=== PATIENT | female | born 1945 | race Caucasian/White ===

== ENCOUNTER 2018-07-02 14:09 | Observation (INO) | payer MEDICARE, OTHER, SELFPAY ==
[2018-06-24 12:38] VITALS: BMI 43.4
[2018-07-01] VITALS (16 sets, daily range): BP systolic 118–172; BP diastolic 54–89; PULSE 65–91; RESP 13–28; TEMP 36–36.8; O2SAT 91–98; BMI 43.4
--- NOTE | 2018-07-01 06:00 | DI.RAD.S_ITS ---
PROCEDURE: XR KNEE RT 1TO2V INDICATIONS: post op right TKA TECHNIQUE: 2 view(s) of the knee acquired. COMPARISON: None. FINDINGS: Bones: Patient is status post knee joint arthroplasty. Hardware components are in expected positions. Visualized bony structures are intact. Soft tissues: Overlying postoperative changes are noted. IMPRESSION: Expected postoperative appearance. Dictated by: Marco Antonio Sutton M.D. on 07/01/2018 at 10:31 Approved by: Marco Antonio Sutton M.D. on 07/01/2018 at 10:32
[2018-07-01] MEDS: LACTATED RINGERS 1,000 ML 42 ML IV ×2 (07:33→09:39)
[2018-07-01] MEDS: MELOXICAM 7.5 MG TABLET 15 MG PO (07:33)
--- NOTE | 2018-07-01 07:41 | PM.PREOP ---
Pre-operative Note Interval Note History & Physical reviewed/Exam performed by Physician: Yes Changes to H&P: No
--- NOTE | 2018-07-01 07:46 | PM.OP.1 ---
Operative Date/Time/Diagnoses Date of procedure: 07/01/18 Time of procedure: 09:40 Pre-op diagnosis: Right knee osteoarthritis Post-op diagnosis: same Procedure & Clinicians Procedure: Right total knee replacement Same procedure as scheduled: Yes Indications: The patient has had progressively worsening right knee pain with radiographic changes consistent with arthritis. Non-operative management has failed and the patient has requested total knee replacement. The risks, benefits and alternatives to surgery were discussed with the patient prior to proceeding. Risks discussed included, but were not limited to, failure to relieve pain, stiffness, infection, nerve damage, deep venous thrombosis, pulmonary embolism, stroke, coma, heart attack, permanent paralysis and , as well as the potential need for eventual revision of the prosthetic. Surgeon: Fabio Crum Metal Temperer: Romana Jones Click Yes if Unassisted: No Anesthesia Type: Spinal, Sedation, Peripheral nerve block and Local Operative Notes Findings: Significant tricompartmental osteoarthritis, worst in the lateral compartment. Closure Type: primary Specimen(s): none sent Prosthetic devices, grafts, tissues, transplants, or devices: Implants used in this procedure were manufactured by the [email or web address] and [employer] and included the BCS II Journey total knee replacement with a size 5 right cobalt chromium femur, a size 4 right non porous tibial base plate, a 10 mm cross-linked polyethylene tibial insert, and a 32 mm oval Katina II patellar component. Applied: implant(s) Estimated Blood Loss (mL): 50 Blood products transfused: none Tourniquet time (min): 51 Procedure in detail: The patient was seen in the pre-operative area, where the patient identified the right knee as the operative site and this was marked with my initials. The patient received pre-operative antibiotics, and was taken to the operating room and placed on the operative table in the supine position. After satisfactory anesthesia, a radio time salesperson out was performed. The right leg was encircled with a tourniquet about the proximal thigh, and the leg was prepared from the toes to the tourniquet with ChloroPrep in the usual fashion and draped through sterile drapes. The leg was elevated and exsanguinated with Eschmark bandage and the tourniquet inflated to 250 mmHg pressure. The knee was approached through an approximately 18 cm incision centered over the patella and carried into the knee through a medial parapatellar arthrotomy. The anterior osteophytes and soft tissues were removed. The rotational landmarks of Bentley's line and the transepicondylar axis were marked on the femur with electrocautery, and intramedullary guide holes for the femur and tibia were created. The distal femoral cut was made in 6 degrees of valgus using the intramedullary guide at the primary cut setting. The proximal tibial cut was then made using the intramedullary guide, taking 7 mm of bone off the less involved medial side. The extension gap was checked and the rotation of the femoral component confirmed with the gap balancing system. The anterior, posterior and chamfer cuts were then made. The posterior osteophytes and soft tissues were then removed. The posterior capsule was injected with part of a mixture of 60 ml 0.25% Marcaine mixed with 20 ml Exparel and 4 mg of morphine for post-operative pain control. The remainder of this mixture was injected into the capsule and subcutaneous tissues during cement curing. The tibia was prepared with the rotation set by an extra medullary guide. Trial tibial and femoral components were then placed and the intercondylar notch cut through the femoral trial. Range of motion was 0-120 degrees, with good stability throughout the range, further flexion was limited by the patient's obesity. The patella was then cut to accommodate the patellar prosthetic. There was no need for a lateral release. The trials were then removed, and the femoral hole plugged with a bone plug. The bone was prepared with pulsatile lavage, and dried with a sponge. Cement was applied and the final prosthetics placed. Excess cement was removed during and after cement curing. After confirming there was no extruded cement posteriorly, the final tibial insert was placed. The knee was copiously irrigated and the tourniquet deflated. Hemostasis was obtained. The capsule was closed with interrupted # 2 polyester suture. The subcutaneous layer was closed with 3-0 Vicryl, and the skin with a running 3-0 V-Lock suture and SteriStrips. An Aquacel Ag dressing was applied and the patient was taken to recovery having tolerated the procedure well. Complications: none Condition: stable Disposition: PACU Plan for aftercare: The patient will be maintained on a standard total knee replacement protocol with weight bearing as tolerated. The patient will receive aspirin and sequential compression devices for DVT prophylaxis. The patient will be discharged home when safe for the home environment.
[2018-07-01] MEDS: fentaNYL 100 MCG/2 ML INJ 50 MCG IV (07:54)
[2018-07-01] MEDS: CEFAZOLIN 2 GM/100 ML FROZ.PIGGY IV ×3 (07:57→23:56)
[2018-07-01] MEDS: MIDAZOLAM 2 MG/2 ML VIAL 1 MG IV (07:58)
--- NOTE | 2018-07-01 08:01 | SUR.PREOP ---
Block start time 0750[] . Monitoring initiated and maintained throughout procedure. Oxygen and medications given per anesthesiologist instructions. Patient remained stable throughout procedure, no adverse reactions noted. Block end time [0755].
--- NOTE | 2018-07-01 08:01 | SUR.PREOP ---
Block start time [0750] . Monitoring initiated and maintained throughout procedure. Oxygen and medications given per anesthesiologist instructions. Patient remained stable throughout procedure, no adverse reactions noted. Block end time [0755].
[2018-07-01] MEDS: TRANEXAMIC ACID 1,000 MG VIAL 2000 MG INJ ×2 (08:10→09:25)
--- NOTE | 2018-07-01 08:37 | SUR.OPER ---
Supine on padded OR bed. Pillow under head, arms secured on padded armboards <90 degree abduction. Safety belt across torso. Non-operative leg secured with tape over blanket over lower leg. Operative leg secured in DeMayo/Julio positioner. Foam padded brace at thigh of operative leg.
[2018-07-01] MEDS: BUPIVACAINE 0.25% W/ EPI 30 ML VIAL 60 ML INJ (08:43)
[2018-07-01] MEDS: BUPIVACAINE LIPOSOME 266 MG/20 ML VIAL INJ (08:44)
[2018-07-01] MEDS: MORPHINE 4 MG/ML INJ IV (08:45)
[2018-07-01] MEDS: MEPERIDINE 100 MG/ML 50 MG IV (10:41)
[2018-07-01] MEDS: LACTATED RINGERS 1,000 ML 125 ML IV ×2 (11:42→20:15)
[2018-07-01] MEDS: IBUPROFEN 600 MG TABLET PO ×2 (12:31→18:59)
--- NOTE | 2018-07-01 13:07 | PC.ADMIT ---
[address] Admission Note: The patient,Juliana Romano,73 y/o, was given written information regarding hospital policies, unit procedures and contact persons. Patient's smoking status: Never smoker. Vital Signs - 8 hr 07/01/18 07:20 07/01/18 10:01 07/01/18 10:05 Temperature 97.6 F 96.8 F L Pulse Rate 70 86 88 Respiratory Rate 16 17 22 Blood Pressure 172/84 H 134/72 152/89 H Pulse Oximetry 96 93 95 07/01/18 10:14 07/01/18 10:16 07/01/18 10:31 Temperature 97.8 F Pulse Rate 85 85 75 Respiratory Rate 28 H 23 13 Blood Pressure 162/85 H 133/74 157/72 H Pulse Oximetry 95 95 94 07/01/18 10:47 07/01/18 11:00 07/01/18 11:26 Temperature 97.9 F 97.8 F 97.6 F Pulse Rate 76 74 72 Respiratory Rate 16 16 16 Blood Pressure 146/69 H 141/67 H 141/69 H Pulse Oximetry 94 91 95 07/01/18 11:32 07/01/18 12:21 Temperature 97.5 F L 97.7 F Pulse Rate 65 70 Respiratory Rate 16 16 Blood Pressure 118/79 157/77 H Pulse Oximetry 94 98 PATIENT ADMITTED FROM PACU, RATES PAIN 3/10. GIVEN IBUPROFEN. DRINKING FLUIDS, NO N/V. CMS INTACT. CHANG WRAP DRSG CDI. FULL SENSATION. LUNGS CLEAR. 2L/NC. NO MONSALVE, NO DRAIN. PHYSICAL THERAPY IN W/ PATIENT AT THIS TIME.
--- NOTE | 2018-07-01 13:45 | PT.IIE ---
Current Diagnoses Unilateral primary osteoarthritis, right knee (07/01/18) Surgery Performed Operation Date: 07/01/18 07:45 Actual Procedures p Total Knee Arthroplasty(Right) - Fabio Crum MD Surgical History (Last Updated 06/24/18 @ 13:20 by Sima Leija, RN) History of 3 sections (Acute) History of lumbar fusion (Acute ~2014) History of lumbar laminectomy (Acute) Hx of bariatric surgery (Acute ~01/2014) Hx of cholecystectomy (Acute ~09/2006) Hx of lumbar discectomy (Acute ~2012) Hx of tubal ligation (Acute) S/P hernia surgery (Acute) Medical History (Last Updated 06/24/18 @ 13:21 by Sima Leija RN) Ankle fracture, left (Acute ~2007) Arthritis (Acute) Bilateral knee pain (Acute) Eczema (Acute) Edema (Acute) Fibromyalgia (Acute) Fragile skin (Acute) HTN (hypertension) (Acute) Hearing impaired (Acute) Hypothyroid (Acute) Osteoarthritis (Acute) Sleep apnea (Acute) Physical Therapy Inpatient Evaluation/Re-Eval M1 PT/OT-IP Prior Functional Status Start: 07/01/18 13:38 Freq: NEEDED Status: Active Protocol: Document 07/01/18 13:39 [facility] (Rec: 07/01/18 13:45 [facility] [id number]) Medical Review Prior Functional Status Medical History Reviewed Yes Diet/Fluid Consistency Regular Communication WNL Mobility and Gait Pt amb with SPC but had used FWW couple days before sx Activities of Daily Living and IADL's 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 5 LISA w/rails B Home Environment Standard Height Toilet Walk in Shower Home Equipment Front Wheel Walker Straight Cane Raised Toilet Seat Without Armrests Long Handled Shoe Horn Flower Planter Sock Aid Additional Social History Comment able to help with meals and icing & ADLs M2 PT-IP Current Condition Start: 07/01/18 13:38 Freq: NEEDED Status: Active Protocol: Document 07/01/18 13:39 [facility] (Rec: 07/01/18 13:45 [facility] [id number]) Physical Therapy Current Condition Current Condition Evaluation Date 07/01/18 Treatment Diagnosis R TKA Onset Date 07/01/18 Weight Bearing Status Weight Bearing Status Weight Bear as Tolerated M3 PT-IP Subjective Start: 07/01/18 13:38 Freq: NEEDED Status: Active Protocol: Document 07/01/18 13:39 [facility] (Rec: 07/01/18 13:45 [facility] [email or web address]) Subjective Physical Therapy Visit Type Type Initial Evaluation Visit Start Time 13:00 Visit Stop Time 13:35 Total Visit Minutes 35 Number of IMMUNOHEMATOLOGIST Visits 0 Physical Therapy Visit Comments Patient Goals Go home tomorrow or whenever she is ready Therapy Pain Assessment Pain When Pain Assessed During Mobility Pain Present Pain Present Pain Reported Location right knee Pain Management Techniques Apply Cold M4 PT-IP Mobility and Gait Start: 07/01/18 13:38 Freq: NEEDED Status: Active Protocol: Document 07/01/18 13:39 [facility] (Rec: 07/01/18 13:45 [facility] [id number]) PT-Bed Mobility Assessment Supine to Sit Supine to Sit Contact Guard Assistance Scooting Scooting to Edge of Bed Contact Guard Assistance PT-Transfer Assessment Sit to and From Stand Sit to and from Stand Minimal Assistance Use of Upper Extremities Equipment Transfer Assistive Device Gait Belt Front Wheeled Walker Orthotic/Prosthetic Devices or Brace: No Transfers Transfer Destination Chair Transfer Technique Stand Step Pivot Transfer Ability Level of Assist Minimal Assistance Comments Mobility Comments Pt required min A with cueing for sit to stand and transfer to chair w/FWW. Unable to do more d/t pain PT-Balance Assessment Sitting Balance and Reactions Static Sitting Balance Ability Good Dynamic Sitting Balance Ability Good Standing Balance and Reactions Static Standing Balance Ability Poor Dynamic Standing Balance Ability Poor Device Used FWW M5 PT-IP Objective Assessments Start: 07/01/18 13:38 Freq: NEEDED Status: Active Protocol: Document 07/01/18 13:39 [facility] (Rec: 07/01/18 13:45 [facility] [id number]) Orientation Orientation/Cognition Level of Alertness Alert Gross Range of Motion Lower Extremity ROM Assessment Right Impaired Strength Lower Extremity Strength Assessment Bilaterally Impaired M6 PT-IP Treatment Start: 07/01/18 13:38 Freq: NEEDED Status: Active Protocol: Document 07/01/18 13:39 [facility] (Rec: 07/01/18 13:45 [facility] [email or web address]) Physical Therapy Treatment Exercises Exercises Ankle Pumps Education Education Provided Weight Bearing Status Post-Op Packet Safety M7 PT-IP Assessment and Plan Start: 07/01/18 13:38 Freq: NEEDED Status: Active Protocol: Document 07/01/18 13:39 [facility] (Rec: 07/01/18 13:45 [facility] [email or web address]) PT Summary Assessment and Plan Potential Rehabilitation Potential Good Status of Condition at Evaluation Evolving Summary Impairments Pain ROM Strength Balance Bed Mobility Transfers Gait Activity Tolerance Assessment Summary Pt presents day of surgery with good motivation for mobility but is limited by pain. She was able to do bed mobility and transfer today but was limited to that d/t pain. She would benefit from skilled PT in order to progress her mobility and gait . Goals Bed Mobility Goal Independent Transfer Goal Independent Gait Goal Standby Assistance Gait Distance 150ft Other Goals up/down 5 steps with B rails SBA Days to Meet Goals 4 Frequency of Treatment Frequency Of Treatment Twice a Day Treatment Plan Physical Therapy Treatment Plan Bed Mobility Training Transfer Training Gait Training Therapeutic Exercise Balance Retraining Post Op Education Discharge Planning Neuromuscular Re-ed Manual Therapy Other Recommendations and Next Treatment Advance gait, transfers & Focus train on exercises Recommendations To Nursing Amount of Assist Needed 1 Person Assist Discharge Recommendations PT Discharge Recommendations Home with Assistance Outpatient PT
[2018-07-01] MEDS: ONDANSETRON 4 MG ODT PO (13:55)
[2018-07-01] MEDS: ACETAMINOPHEN 325 MG TABLET 975 MG PO ×2 (14:43→20:15)
[2018-07-01] MEDS: OXYCODONE IR 5 MG TABLET PO (20:15)
[2018-07-01] MEDS: GABAPENTIN 300 MG CAPSULE 900 MG PO (20:16)
[2018-07-01] MEDS: DOCUSATE 100 MG CAPSULE PO (20:16)
[2018-07-01] MEDS: ASPIRIN EC 81 MG TABLET PO (20:16)
[2018-07-01] MEDS: PANTOPRAZOLE 20 MG TABLET PO (20:17)
--- NOTE | 2018-07-01 22:27 | PC.NURSE ---
Pt alert and oriented. Off date by one day. Denies pain or headache. Face symmetrical. No residual neuro deficits noted but pt is forgetful on names and places. Planning on going home tomorrow. O2 sats = 94% on RA.
--- NOTE | 2018-07-01 22:31 | PC.NURSE ---
Pt up to bedside commode to void small amounts of urine. Transferring with 1 to 2 people. Getting stronger with her transfers. Rates pain at 4/10 and accepted (reluctantly) one oxycodone for pain at 4-5/10 at bedtime. Dressing CDI. CMS intact. Eating and drinking well with no complaints of nausea. IVF continue at 125 cc/hr.
[2018-07-02] MEDS: HYDROMORPHONE 0.5 MG INJ IV (04:00)
[2018-07-02] MEDS: LACTATED RINGERS 1,000 ML 125 ML IV (04:01)
[2018-07-02 04:31] VITALS: BP 149/72; PULSE 81; RESP 16; TEMP 37.2; O2SAT 94
[2018-07-02] MEDS: LEVOTHYROXINE 100 MCG TABLET 200 MCG PO (06:02)
[2018-07-02] MEDS: LIOTHYRONINE 5 MCG TABLET PO (06:02)
[2018-07-02] MEDS: OXYCODONE IR 5 MG TABLET PO ×3 (06:04→21:39)
--- NOTE | 2018-07-02 06:34 | P.PN_ITS ---
Subjective Date Patient Seen: 07/02/18 Time Patient Seen: 06:32 Interval history: The patient reports her pain is relatively well controlled. Exam Vital Signs (past 8 hours): - 07/01/18 23:00 07/02/18 04:31 Temperature 98.3 F 98.9 F Pulse Rate 68 81 Respiratory Rate 16 16 Blood Pressure 134/54 L 149/72 H Pulse Oximetry 94 94 Oxygen Delivery Method Nasal Cannula Oxygen Flow Rate 2 Narrative Exam Narrative: The right knee wound is dressed with no drainage on the bandage. Calf is soft. Light touch and motion are intact in the right lower extremity. Objective Labs Result Diagrams: 07/02/18 05:50 Assessment & Plan Post-op Postoperative Procedures Operation Date: 07/01/18 07:45 Actual Procedures Side Surgeon p Total Knee Arthroplasty Right Fabio Crum MD Postoperative day: 1 Postoperative status: doing well Postoperative status narrative: The patient is stable postoperative day 1 after right total knee replacement. Her progress was limited somewhat by pain in phy sical therapy yesterday. Postoperative plan: routine post-op care and ambulate Time Spent With Patient less than 15 minutes
[2018-07-02 06:43] LABS: Hematocrit 32.5 % (36-46); Hemoglobin 10.6 g/dL (12.0-16.0)
[2018-07-02] MEDS: ACETAMINOPHEN 325 MG TABLET 975 MG PO ×3 (08:20→21:40)
[2018-07-02] MEDS: FUROSEMIDE 20 MG TABLET PO (08:20)
[2018-07-02] MEDS: IBUPROFEN 600 MG TABLET PO ×3 (08:21→21:41)
[2018-07-02] MEDS: ASPIRIN EC 81 MG TABLET PO ×2 (08:21→21:41)
[2018-07-02] MEDS: GABAPENTIN 600 MG TABLET PO (08:21)
[2018-07-02] MEDS: DOCUSATE 100 MG CAPSULE PO ×2 (08:21→21:42)
[2018-07-02] MEDS: LOSARTAN 50 MG TABLET 100 MG PO (08:21)
[2018-07-02 08:30] VITALS: O2SAT 96
[2018-07-02 09:00] VITALS: BP 147/68; PULSE 78; RESP 16; TEMP 37.7; O2SAT 96
[2018-07-02] MEDS: OXYCODONE IR 10 MG TABLET PO (10:30)
--- NOTE | 2018-07-02 11:00 | PT.IPTN ---
Current Diagnoses Unilateral primary osteoarthritis, right knee (07/01/18) Surgery Performed Operation Date: 07/01/18 07:45 Actual Procedures p Total Knee Arthroplasty(Right) - Fabio Crum MD Physical Therapy Treatment Note M2 PT-IP Current Condition Start: 07/01/18 13:38 Freq: NEEDED Status: Active Protocol: Document 07/01/18 13:39 [facility] (Rec: 07/01/18 13:45 [facility] [email or web address]) Physical Therapy Current Condition Current Condition Evaluation Date 07/01/18 Treatment Diagnosis R TKA Onset Date 07/01/18 Weight Bearing Status Weight Bearing Status Weight Bear as Tolerated M3 PT-IP Subjective Start: 07/01/18 13:38 Freq: NEEDED Status: Active Protocol: Document 07/02/18 10:49 [facility] (Rec: 07/02/18 11:00 [facility] [id number]) Subjective Physical Therapy Visit Type Type Treatment Note Visit Start Time 09:40 Visit Stop Time 10:16 Total Visit Minutes 36 Number of STAMP PRESSER Visits 1 Physical Therapy Visit Comments Patient Comments Pt agreeable to PT, knee pain is 1/10 at rest. Patient Goals To go home with . Therapy Pain Assessment Pain When Pain Assessed During Mobility Pain Present Pain Present Pain Reported Location right knee Intensity 2 Scale Used Numeric (1 - 10) Pain Management Techniques Apply Cold Timing of Activity with Medications M4 PT-IP Mobility and Gait Start: 07/01/18 13:38 Freq: NEEDED Status: Active Protocol: Document 07/02/18 10:49 [facility] (Rec: 07/02/18 11:00 [facility] [id number]) PT-Bed Mobility Assessment Rolling Type of Rolling Roll to Right Level of Assist Contact Guard Assistance Supine to Sit Supine to Sit Contact Guard Assistance Bedrails Scooting Scooting to Edge of Bed Contact Guard Assistance Scooting Up and Down in Bed Contact Guard Assistance PT-Transfer Assessment Sit to and From Stand Sit to and from Stand Contact Guard Assistance Use of Upper Extremities Equipment Transfer Assistive Device Gait Belt Front Wheeled Walker Orthotic/Prosthetic Devices or Brace: No Transfers Transfer Destination Bed Chair Toilet Transfer Technique Stand Step Pivot Transfer Ability Level of Assist Contact Guard Assistance Minimal Assistance 1 Person Assistance Comments Mobility Comments PT CGA with transfers and CGA- Min A with sit to stands depending on surface. CGA with bed mobility but have not attempted sit to supine yet to see if kya can clear LEs over EOB. Gait Assessment Gait Gait Assistance Required: Contact Guard Assist Distance (Feet) 45 Able to Maintain Weight Bearing Status Yes During Gait Assistive Devices Assistive Device Gait Belt Front Wheeled Walker Orthotic/Prosthetic Devices or Brace: No Gait Deviations General Gait Pattern Antalgic Decreased Stride Length Decreased Feet Clearance Step-to Gait Factors Limiting Gait Function Factors Limiting Gait Function Decreased Activity Tolerance Decreased Strength Limited Range of Motion Comments Gait Comments Pt with decreased step length and excessive WBing through UEs. Short distance gait training around room, to/from batroom with CGA and cues for increasing RLE WBing and LLE step length. Stair Climbing Assessment Comments Stair Climbing Comments Fatiged this AM, will attempt in PM session. PT-Balance Assessment Comments Other Balance Tests/Deviations/Treatment Stood at sink x3 min to wash/ : dry hands. Stood to don/doff gown with SBA. M5 PT-IP Objective Assessments Start: 07/01/18 13:38 Freq: NEEDED Status: Active Protocol: Document 07/01/18 13:39 [facility] (Rec: 07/01/18 13:45 [facility] [email or web address]) Orientation Orientation/Cognition Level of Alertness Alert Gross Range of Motion Lower Extremity ROM Assessment Right Impaired Strength Lower Extremity Strength Assessment Bilaterally Impaired M6 PT-IP Treatment Start: 07/01/18 13:38 Freq: NEEDED Status: Active Protocol: Document 07/02/18 10:49 [facility] (Rec: 07/02/18 11:00 [id number]) Physical Therapy Treatment Exercises Exercises Ankle Pumps Gluteal Sets Quad Sets Seated Knee Flexion/Extension Education Education Provided Weight Bearing Status Post-Op Packet Safety M7 PT-IP Assessment and Plan Start: 07/01/18 13:38 Freq: NEEDED Status: Active Protocol: Document 07/02/18 10:49 [facility] (Rec: 07/02/18 11:00 [id number]) PT Summary Assessment and Plan Potential Rehabilitation Potential Good Status of Condition at Evaluation Evolving Summary Assessment Summary Pt with low pain levels and progressing functional mobility. CGA-Min A with most tasks. Still need to trial stairs prior to d/c home with as caregiver. Frequency of Treatment Frequency Of Treatment Twice a Day Treatment Plan Physical Therapy Treatment Plan Bed Mobility Training Transfer Training Gait Training Therapeutic Exercise Balance Retraining Post Op Education Discharge Planning Neuromuscular Re-ed Manual Therapy Recommendations To Nursing Amount of Assist Needed 1 Person Assist Discharge Recommendations PT Discharge Recommendations Home with Assistance Outpatient PT
--- NOTE | 2018-07-02 14:38 | CM.DANOTE ---
Patient is a 73 year old female who was admitted on 07/01/18 for Right Total Knee. Pt has [facility] and for insurance and her PCP is Dr. Correa. EMR was reviewed. Per Ortho PA, pt tolerated procedure well. Per PT, pt independent with ADL's at baseline and recommending safe d/c home with spouse and outpt PT when medically stable. Patient resides at home with her spouse and is comfortable with d/c home with spouse assist and outpt PT. Plan: SW to follow for likely d/c home with spouse and outpt when medically stable. SW to follow for any further needs. CARON Garrido Discharge Planning/Care Management Advanced directive, confirm from FAMILY Start: 07/01/18 12:10 Freq: Q24H Status: Active Protocol: Document 07/01/18 12:10 [facility] (Rec: 07/01/18 12:11 [facility] [id number]) Advance Directive, confirm on record Time 12:10 Person contacted family not present Copy received No CM Discharge Assessment Start: 07/02/18 14:31 Freq: Status: Active Protocol: Document 07/02/18 14:31 BF (Rec: 07/02/18 14:32 BF [id number]) Discharge Planning Assessment Assigned Broom Worker CARON Betancur Advance Directives? Yes Advance Directives on File No History Provided By Patient Medical Record Has Patient been admitted in last 30 No days? Prior Living Arrangements House Household Members spouse Type of transporation used prior to Drives own vehicle admit Independent with ADL's Yes Is patient alert and oriented? Yes Caregiver for Another No Patient/Family Preference OP PT Therapy Barriers to Discharge No Discharge Plan Home Community Services Physical Therapy Transportation Arrangement Spouse can likely provide transport Referrals Initiated None needed Review Status In Process Please Provide Date Initial DC 07/02/18 Assessment Was Performed Next Review Type Continued Stay Review Pre-Anesthesia Assessment Start: 06/24/18 12:38 Freq: Status: Complete Protocol: Document 06/24/18 12:38 CAB (Rec: 06/24/18 13:31 CAB [id number]) Pre-Anesthesia Assessment Patient Also Known As (HARPER Smith Patient Information Reviewed Via Phone Assessment Assessment Completed With Patient Diagnostic Results BMP/CMP CBC EKG Urinalysis Other Comment Outside labs/EKG scanned to record Primary Care Provider Nigel Hughes Seen Specialist in Last 12 Months Yes Specialist Seen Orthopedist Comment PCP visit 06/10/18 scanned to record Primary Language Citizen Of [place] Slab Miller Operator Required No Height 168.91 cm Weight 123.831 kg Body Mass Index (BMI) 43.4 Hearing Ability Hard of Hearing Use of Hearing Aid Visual Assist Glasses Dentition Type Full- Upper & Lower Barriers to Learning None Other Aids Yes: CPAP Hx Anesthesia Reactions No Hx Family Anesthesia Reaction No Hx Malignant Hyperthermia No Hx Blood Transfusions No Anesthesia Review Requested Yes: Surgeon requested re: Sleep apnea, BMI Scenery Builder No alcohol intake former Smoking Status Never smoker Substance Use Type does not use Pain Present Pain Reported Musculoskeletal Symptoms Abnormal Gait Back Pain Difficulty Walking Joint Pain History of Falling (Recent or History of Yes ) Patient is completely paralyzed or No completely immobile Prosthesis or Orthotic Device Cane Front Wheel Walker Mental Status Oriented to own ability Is patient on oxygen? No Does patient have CUMMINS/SOB No Hx Sleep Apnea Yes CPAP/BIPAP use prescribed and used routinely Will Bring CPAP/BIPAP DOS Yes Currently Taking a Beta Kareem No Can You Climb a Flight of Stairs Without Yes SOB Hx Chest Pain No Hx SOB No Hx Syncope or Dizziness No Anti-Coagulant Therapy No Has a Plate Preparer No Cardiac Testing No Hx Pacemaker/ICD No Pacemaker Rep Required? No Cardiac Clearance Received Not Applicable Diet Type At Home Regular dysphagia No Bladder Pattern Incontinent, Stress Urinary Catheter Present No Hx Urinary Self Catheterization No Diabetes No HgbA1C 5.9 Date 05/22/18 Patient No Lactating No Hx Drug Resistant Organism Pseudomonas 2011 Presence of External or Internal Medical Yes: CPAP, hearing aids, Devices lumbar fusion hardware Have you traveled outside the [facility] in the last 30 days? Marital Status Lives With spouse Prior Living Arrangements House Number of Floors (Floors) One Floor Support System Child/Children Spouse Does the Patient Have Assistance After Yes Surgery Patient Discharge Plan Description Return Home Comment Pt advised 1-2 day length of stay per surgeon's office Feels Safe in Current Environment Yes Been Physically Hurt or Threatened By a No Person in Current Environment Do you have thoughts of harming yourself None or others? Are you currently considering suicide? No Do you have a plan to hurt yourself or No Plan others? Do You Have Any Spiritual Beliefs That No May Affect Your HC Choices? Do You Have Any Cultural Practices That No May Affect Your HC Choices? Spiritual Referral None Comment Druze Who Can We Speak to About Patient's Care Family, friends Identifying Code for Release of Patient Declines to issue Information Health Care Proxy/Next of Kin Jaylan Moore () Health Care Proxy Emergency Contact Name Jaylan Moore () Emergency Contact Advance Directives? Yes Advance Directives on File No Requested Patient Bring Advanced Yes Directives DOS Power of Relay Shop Tester Yes Power of Relay Shop Tester Name Jaylan Moore () Power of Relay Shop Tester PAC Instructions Bring CPAP/BIPAP Do not shave/clip surgical site Durable medical equipment Medications to take/avoid Nasal antibiotic No ETOH/petroleum product on skin DOS NPO Post-op transportation Pre-surgical wash Sensory aids Sturdy shoes/comfortable clothes Do not bring valuables and remove jewelry
--- NOTE | 2018-07-02 14:51 | PT.IPTN ---
Current Diagnoses Unilateral primary osteoarthritis, right knee (07/01/18) Surgery Performed Operation Date: 07/01/18 07:45 Actual Procedures p Total Knee Arthroplasty(Right) - Fabio Crum MD Physical Therapy Treatment Note M2 PT-IP Current Condition Start: 07/01/18 13:38 Freq: NEEDED Status: Active Protocol: Document 07/01/18 13:39 [facility] (Rec: 07/01/18 13:45 [facility] [id number]) Physical Therapy Current Condition Current Condition Evaluation Date 07/01/18 Treatment Diagnosis R TKA Onset Date 07/01/18 Weight Bearing Status Weight Bearing Status Weight Bear as Tolerated M3 PT-IP Subjective Start: 07/01/18 13:38 Freq: NEEDED Status: Active Protocol: Document 07/02/18 14:42 SA (Rec: 07/02/18 14:51 SA [id number]) Subjective Physical Therapy Visit Type Type Treatment Note Visit Start Time 13:30 Visit Stop Time 13:54 Total Visit Minutes 24 Number of PHOTO CHECKER Visits 2 Physical Therapy Visit Comments Patient Comments Pt up in chair and agreeable to PT, present for session. Patient Goals To go home with . Therapy Pain Assessment Pain When Pain Assessed During Mobility Pain Present Pain Present Pain Reported Location right knee Intensity 2 Scale Used Numeric (1 - 10) Pain Management Techniques Apply Cold Timing of Activity with Medications M4 PT-IP Mobility and Gait Start: 07/01/18 13:38 Freq: NEEDED Status: Active Protocol: Document 07/02/18 14:42 SA (Rec: 07/02/18 14:51 SA [id number]) PT-Bed Mobility Assessment Sit to Supine Sit to Supine Standby Assistance Bedrails PT-Transfer Assessment Sit to and From Stand Sit to and from Stand Contact Guard Assistance Minimal Assistance Use of Upper Extremities Equipment Transfer Assistive Device Gait Belt Front Wheeled Walker Orthotic/Prosthetic Devices or Brace: No Transfers Transfer Destination Bed Chair Wheelchair Transfer Technique Stand Step Pivot Transfer Ability Level of Assist Contact Guard Assistance Minimal Assistance 1 Person Assistance Comments Mobility Comments Pt CGA-Min A for sit to stands and CGA for transfers. Pt able to clear LEs over EOB with several attempts and CGA. Gait Assessment Gait Gait Assistance Required: Contact Guard Assist Distance (Feet) 100 Able to Maintain Weight Bearing Status Yes During Gait Assistive Devices Assistive Device Gait Belt Front Wheeled Walker Orthotic/Prosthetic Devices or Brace: No Gait Deviations General Gait Pattern Antalgic Decreased Stride Length Decreased Feet Clearance Step-to Gait Factors Limiting Gait Function Factors Limiting Gait Function Decreased Activity Tolerance Decreased Strength Limited Range of Motion Comments Gait Comments Gait training with FWW and CGA -SBA for 50 + 50 feet wit seated rest break between and cues for increasing WBing on RLE. Stair Climbing Assessment Evaluation Level of Assist On Stairs Contact Guard Assistance Devices Stair Climbing Assistive Devices Left Railing Right Railing Technique/Endurance Stair Climbing Direction Ascend and Descend Stair Climbing Technique Step to Step Number of Steps Climbed 3 Query Text: Stair Climbing Set # Repetitions (reps) 1 Comments Stair Climbing Comments Pt CGA with stair training and B rails, relies heavily on UEs for support. present for caregiver training . M5 PT-IP Objective Assessments Start: 07/01/18 13:38 Freq: NEEDED Status: Active Protocol: Document 07/01/18 13:39 LR (Rec: 07/01/18 13:45 [facility] [id number]) Orientation Orientation/Cognition Level of Alertness Alert Gross Range of Motion Lower Extremity ROM Assessment Right Impaired Strength Lower Extremity Strength Assessment Bilaterally Impaired M6 PT-IP Treatment Start: 07/01/18 13:38 Freq: NEEDED Status: Active Protocol: Document 07/02/18 14:42 SA (Rec: 07/02/18 14:51 [id number]) Physical Therapy Treatment Exercises Exercises Ankle Pumps Gluteal Sets Quad Sets Seated Knee Flexion/Extension Education Education Provided Weight Bearing Status Post-Op Packet Safety Other Treatments Other Treatment Performed Caregiver training conducted with pt's for safe transfers, gait, stairs and bed mobility. M7 PT-IP Assessment and Plan Start: 07/01/18 13:38 Freq: NEEDED Status: Active Protocol: Document 07/02/18 14:42 SA (Rec: 07/02/18 14:51 [id number]) PT Summary Assessment and Plan Potential Rehabilitation Potential Good Status of Condition at Evaluation Evolving Summary Assessment Summary Pt progressing well, low pain levels but fatigues rapidly with standing activity. Continue to work on stair training, pt has 5 LISA home. Frequency of Treatment Frequency Of Treatment Twice a Day Treatment Plan Physical Therapy Treatment Plan Bed Mobility Training Transfer Training Gait Training Therapeutic Exercise Balance Retraining Post Op Education Discharge Planning Neuromuscular Re-ed Manual Therapy Recommendations To Nursing Amount of Assist Needed 1 Person Assist Discharge Recommendations PT Discharge Recommendations Home with Assistance Outpatient PT
--- NOTE | 2018-07-02 15:20 | PC.NURSE ---
Ortho: Moving well, worked with PT x2 and had staff helping her to get up to the bsc. Minimal pain, oxycodone has been effective with addition of tylenol and ibuprofen. Legs sl swollen and pt reports she had this prior to admit. PPP, feet =/warm, moves toes and legs w/out problems. Resting comfortably at the moment. Spouse here for teaching w/PT. Plans to d/c home tomorrow.
[2018-07-02 15:40] VITALS: BP 145/67; PULSE 79; RESP 18; TEMP 37.1; O2SAT 93
[2018-07-02 19:08] VITALS: BP 149/78; PULSE 79; RESP 18; TEMP 37; O2SAT 92
[2018-07-02] MEDS: GABAPENTIN 300 MG CAPSULE 900 MG PO (21:42)
[2018-07-02] MEDS: PANTOPRAZOLE 20 MG TABLET PO (21:42)
[2018-07-02 23:00] VITALS: BP 156/67; PULSE 92; RESP 16; TEMP 36.7; O2SAT 95
--- NOTE | 2018-07-03 00:34 | PC.NURSE ---
Addendum entered by Tiffanie Ramachandran R.N. 07/03/18 05:35: Patient has slept all night. Denied pain when lying in bed but assisted to bathroom with walker and pain increased to 7/10 with movement. Poor activity tolerance related to pain; had to stop every couple steps to regroup. Medicated with Oxycodone and ice pack applied. Original Note: Patient is alert and oriented. Breath sounds diminished but CTA. Was asleep with CPAP on and O2 sat initially 81% but upon waking and conversing sat went back up to 95%. States she breathes shallowly with CPAP on so RT contacted to bleed oxygen into CPAP for sleep to ensure adequate oxygenation. HRR. Denies nausea. BT present and states she is passing flatus. Reports hx stress incontinence so is wearing a pull-up but denies dysuria, frequency or urgency. Is able to move herself in bed and reportedly gets up with 1 assist + walker. Aquacel dressing to right knee is CDI. 1+ edema chronic bilateral LE with right leg being larger than left. CMS is intact. Denies pain. Wearing bilateral SCD's. Fall risk score is moderate; bed alarm is activated.
[2018-07-03 00:35] VITALS: O2SAT 96
[2018-07-03] MEDS: LIOTHYRONINE 5 MCG TABLET PO (05:30)
[2018-07-03] MEDS: OXYCODONE IR 10 MG TABLET PO ×2 (05:30→11:11)
[2018-07-03] MEDS: LEVOTHYROXINE 100 MCG TABLET 200 MCG PO (05:31)
[2018-07-03 05:53] VITALS: BP 144/77; PULSE 100; RESP 16; TEMP 36.9; O2SAT 98
[2018-07-03 08:00] VITALS: BP 145/70; PULSE 84; RESP 18; TEMP 36.9; O2SAT 95
--- NOTE | 2018-07-03 08:17 | PM.DS.1 ---
History of Present Illness Date Patient Seen: 07/03/18 Time Patient Seen: 08:17 Chief complaint: 35088 RIGHT TOTAL KNEE ARTHROPLASTY Narrative: The patient has had progressively worsening right knee pain with radiographic changes consistent with arthritis. Non-operative management has failed and the patient has requested total knee replacement. The risks, benefits and alternatives to surgery were discussed with the patient prior to proceeding. Risks discussed included, but were not limited to, failure to relieve pain, stiffness, infection, nerve damage, deep venous thrombosis, pulmonary embolism, stroke, coma, heart attack, permanent paralysis and , as well as the potential need for eventual revision of the prosthetic. Discharge Providers Date of admission: 07/01/18 06:03 Discharge Date: 07/03/18 Primary care physician: Nigel Hughes MD Consults: 07/01/18 11:32 Consult to Discharge Planning Routine Comment: Consult to Physical Therapy Evaluate & Treat Comment: Physician Instructions: postop TKA protocol Discharge provider: oRmana Jones PA-C Summary Discharge Diagnosis: s/p total knee arthroplasty obesity Hospital Course: Juliana was admitted for right total knee arthroplasty with Dr. Crum. Hospital course unremarkable. POD #2 patient was ready to discharge home. She has been working with physical therapy throughout her stay. She is eating and voiding without difficulty or assistance. She had ASA and SCDs for DVT prophylaxis. She did have some pain control issues postop day 1 but this has been well controlled. She has all her home medications. Exam Vital Signs (past 8 hours): - 07/03/18 00:35 07/03/18 05:53 Temperature 98.5 F Pulse Rate 100 H Respiratory Rate 16 Blood Pressure 144/77 H Pulse Oximetry 96 98 Fraction of Inspired Oxygen 21 Oxygen Delivery Method CPAP Oxygen Flow Rate 0 Narrative Exam Narrative: Patient is sitting up in bed in no acute distress. She is alert ox3. Dressing on right knee is CDI. Calves are soft, compressible and nontender bilaterally. Pulses are symmetrical. SCDs in place. She is able to actively dorsiflex plantar flex. No complaints of pain last night. She states PT went well, and she did well on the stairs. She has 5 stairs to go home. Objective Labs Result Diagrams: 07/02/18 05:50 Discharge Plan Discharge Plan Patient Disposition: Home Discharge Med Rec/Prescriptions Prescriptions: New aspirin 81 mg Tablet,Delayed Release (Dr/Ec) 81 mg PO BID Qty: 50 RF: 0 docusate sodium [DOK] 100 mg Capsule 100 mg PO BID Qty: 60 RF: 0 Continued liothyronine [Cytomel] 5 mcg Tablet 5 mcg PO DAILY RF: 0 acetaminophen [Tylenol Arthritis Pain] 650 mg Tablet Extended Release 1,300 mg PO TID RF: 0 gabapentin 300 mg Capsule 300 mg PO SEEINSTR RF: 0 levothyroxine [Synthroid] 200 mcg Tablet 200 mcg PO SEEINSTR RF: 0 furosemide 20 mg Tablet 20 mg PO QAM RF: 0 ibuprofen 600 mg Tablet 600 mg PO TID RF: 0 losartan 100 mg Tablet 100 mg PO DAILY RF: 0 omeprazole 20 mg Tablet,Delayed Release (/Ec) 20 mg PO BEDTIME RF: 0 Follow up/Referrals: Fabio Crum MD [Physician] - Provider Discharge Instructions Cold/Heat Therapy: as needed Skin/Wound/Dressing Care Report to your healthcare provider any signs of infection, such as:: chills, fever and increased pain Dressing: leave in place Visit Report/Discharge Packet Instructions: DI for Knee Replacement Discharge Data Primary Care Provider: Nigel Hughes Attending Provider: Fabio Crum Admit Date/Time: 07/01/18 06:03
[2018-07-03] MEDS: ACETAMINOPHEN 325 MG TABLET 975 MG PO (09:07)
[2018-07-03] MEDS: ASPIRIN EC 81 MG TABLET PO (09:08)
[2018-07-03] MEDS: DOCUSATE 100 MG CAPSULE PO (09:08)
[2018-07-03] MEDS: FUROSEMIDE 20 MG TABLET PO (09:08)
[2018-07-03] MEDS: LOSARTAN 50 MG TABLET 100 MG PO (09:09)
[2018-07-03] MEDS: GABAPENTIN 600 MG TABLET PO (09:09)
[2018-07-03] MEDS: IBUPROFEN 600 MG TABLET PO (09:09)
[2018-07-03] MEDS: OXYCODONE IR 5 MG TABLET PO (09:10)
--- NOTE | 2018-07-03 11:15 | PC.NURSE ---
Day shift: Pt Sohail. Has meds. Paperwork signed and all questions answered. Pt has all personal belongings. Taken to private car by student RN. Pt's spouse will drive them home. Gave Pt 10mg PO oxycodone for the [address] to [facility].
--- NOTE | 2018-07-03 11:18 | PT.IPTN ---
Current Diagnoses Unilateral primary osteoarthritis, right knee (07/01/18) Surgery Performed Operation Date: 07/01/18 07:45 Actual Procedures p Total Knee Arthroplasty(Right) - Fabio Crum MD Physical Therapy Treatment Note M2 PT-IP Current Condition Start: 07/01/18 13:38 Freq: NEEDED Status: Discharge Protocol: Document 07/01/18 13:39 [facility] (Rec: 07/01/18 13:45 [facility] [id number]) Physical Therapy Current Condition Current Condition Evaluation Date 07/01/18 Treatment Diagnosis R TKA Onset Date 07/01/18 Weight Bearing Status Weight Bearing Status Weight Bear as Tolerated M3 PT-IP Subjective Start: 07/01/18 13:38 Freq: NEEDED Status: Discharge Protocol: Document 07/03/18 11:10 (Rec: 07/03/18 11:18 [id number]) Subjective Physical Therapy Visit Type Type Treatment Note Visit Start Time 10:31 Visit Stop Time 11:00 Total Visit Minutes 29 Number of HR INTERNSHIP Visits 3 Physical Therapy Visit Comments Patient Comments Pt and Oscar present and ready for D/C. Patient Goals To go home with . Therapy Pain Assessment Pain When Pain Assessed During Mobility Pain Present Pain Present Pain Reported Location right knee Intensity 2 Scale Used Numeric (1 - 10) Pain Management Techniques Apply Cold Timing of Activity with Medications M4 PT-IP Mobility and Gait Start: 07/01/18 13:38 Freq: NEEDED Status: Discharge Protocol: Document 07/03/18 11:10 SA (Rec: 07/03/18 11:18 [id number]) PT-Bed Mobility Assessment Supine to Sit Supine to Sit Standby Assistance Sit to Supine Sit to Supine Standby Assistance Bedrails Scooting Scooting to Edge of Bed Contact Guard Assistance Scooting Up and Down in Bed Contact Guard Assistance PT-Transfer Assessment Sit to and From Stand Sit to and from Stand Contact Guard Assistance Minimal Assistance Use of Upper Extremities Equipment Transfer Assistive Device Gait Belt Front Wheeled Walker Orthotic/Prosthetic Devices or Brace: No Transfers Transfer Destination Chair Toilet Wheelchair Transfer Ability Level of Assist Contact Guard Assistance Minimal Assistance 1 Person Assistance Comments Mobility Comments Pt CGA for actual transfers but Min A at times for sit to stands, needs cues for forward lean and use of UEs for sit to stand and is able to complete with CGA when cued. CGA with bed mobility and cues . Gait Assessment Gait Gait Assistance Required: Contact Guard Assist Distance (Feet) 75 Able to Maintain Weight Bearing Status Yes During Gait Assistive Devices Assistive Device Gait Belt Front Wheeled Walker Orthotic/Prosthetic Devices or Brace: No Gait Deviations General Gait Pattern Antalgic Decreased Stride Length Decreased Feet Clearance Step-to Gait Factors Limiting Gait Function Factors Limiting Gait Function Decreased Activity Tolerance Decreased Strength Limited Range of Motion Comments Gait Comments Gait training in room and kaminski with frequent turns and cues for increased WBing on RLE and LLE step length. Stair Climbing Assessment Evaluation Level of Assist On Stairs Contact Guard Assistance Devices Stair Climbing Assistive Devices Left Railing Right Railing Technique/Endurance Stair Climbing Direction Ascend and Descend Stair Climbing Technique Step to Step Number of Steps Climbed 3 Query Text: Stair Climbing Set # Repetitions (reps) 1 Comments Stair Climbing Comments PT CGA on stairs with B rails and step to gait, needs cues for PLB. PT-Balance Assessment Comments Other Balance Tests/Deviations/Treatment Stood in bathroom for dressing : with SBA and min cues x 5 min . M5 PT-IP Objective Assessments Start: 07/01/18 13:38 Freq: NEEDED Status: Discharge Protocol: Document 07/01/18 13:39 LR (Rec: 07/01/18 13:45 [facility] [id number]) Orientation Orientation/Cognition Level of Alertness Alert Gross Range of Motion Lower Extremity ROM Assessment Right Impaired Strength Lower Extremity Strength Assessment Bilaterally Impaired M6 PT-IP Treatment Start: 07/01/18 13:38 Freq: NEEDED Status: Discharge Protocol: Document 07/03/18 11:10 SA (Rec: 07/03/18 11:18 [id number]) Physical Therapy Treatment Exercises Exercises Ankle Pumps Gluteal Sets Quad Sets Seated Knee Flexion/Extension Education Education Provided Weight Bearing Status Post-Op Packet Safety Other Treatments Other Treatment Performed Caregiver training with Oscar for car transfers, sit to stands and use of grab bar in shower. Pt has lift chair at home that she is going to try and use less as knee heals and she gets stronger. M7 PT-IP Assessment and Plan Start: 07/01/18 13:38 Freq: NEEDED Status: Discharge Protocol: Document 07/03/18 11:10 SA (Rec: 07/03/18 11:18 [email or web address]) PT Summary Assessment and Plan Potential Rehabilitation Potential Good Status of Condition at Evaluation Evolving Summary Assessment Summary Pt progressing well, caregiver training completed with and OP PT set up. Pt to d/c home today. Frequency of Treatment Frequency Of Treatment Twice a Day Treatment Plan Physical Therapy Treatment Plan Bed Mobility Training Transfer Training Gait Training Therapeutic Exercise Balance Retraining Post Op Education Discharge Planning Neuromuscular Re-ed Manual Therapy Recommendations To Nursing Amount of Assist Needed 1 Person Assist Discharge Recommendations PT Discharge Recommendations Home with Assistance Outpatient PT
== END 2018-07-03 11:16 | disposition home or self-care (01) ==
LOC: AC 07-03 11:04 → OR 07-03 11:28
PROVIDERS: Admitting Provider Orthopaedic Surgery; PCP Family Medicine; Visit Provider Orthopaedic Surgery
PROC: 0SRC0JZ Replacement of Right Knee Joint with Synthetic Substitute, Open Approach (ICD-10-PCS; CPT 27447; principal; 2018-07-01 07:45)
DX: M17.11 Unilateral primary osteoarthritis, right knee (principal); G47.33 Obstructive sleep apnea (adult) (pediatric); I10 Essential (primary) hypertension; E66.01 Morbid (severe) obesity due to excess calories; Z68.42 Body mass index [BMI] 45.0-49.9, adult; G89.18 Other acute postprocedural pain
CPT/HCPCS: 27447; 36415; 64447; 64450; 73560; 85014; 85018; 94760; 97116; 97162; 97530; C1776; G0378; C9290; J0690; J1170; J2175; J2250; J2270; J2704; J3010

== ENCOUNTER 2018-11-25 12:00 | Inpatient (IN) | payer MEDICARE, OTHER, SELFPAY ==
[2018-07-01 11:51] VITALS: BMI 43.4
[2018-11-21 15:36] VITALS: BMI 45.1
[2018-11-24] VITALS (15 sets, daily range): BP systolic 114–160; BP diastolic 58–76; PULSE 58–83; RESP 9–20; TEMP 36.2–37.2; O2SAT 92–99; BMI 43.4
--- NOTE | 2018-11-24 07:27 | DI.RAD.S_ITS ---
PROCEDURE: XR KNEE LT 1TO2V INDICATIONS: post op left knee TECHNIQUE: 2 view(s) of the knee acquired. COMPARISON: [facility], CR, XR KNEE RT 1TO2V, 11/07/2018, 07/01/2018. FINDINGS: Bones: Patient is status post knee joint arthroplasty. Hardware components are in expected positions. Visualized bony structures are intact. A small quadriceps tendon enthesophyte. Soft tissues: Overlying postoperative changes are noted. IMPRESSION: Satisfactory appearance post left knee total arthroplasty. Dictated by: Marciano Shaffer M.D. on 11/24/2018 at 13:58 Approved by: Marciano Shaffer M.D. on 11/24/2018 at 13:59
[2018-11-24] MEDS: LACTATED RINGERS 1,000 ML 42 ML IV (08:47)
[2018-11-24] MEDS: MELOXICAM 7.5 MG TABLET 15 MG PO (08:50)
[2018-11-24] MEDS: PREGABALIN 75 MG CAPSULE PO (08:50)
[2018-11-24] MEDS: ACETAMINOPHEN 325 MG TABLET 975 MG PO ×3 (08:51→21:59)
--- NOTE | 2018-11-24 09:29 | PM.PREOP ---
Pre-operative Note Interval Note History & Physical reviewed/Exam performed by Physician: Yes Changes to H&P: No
[2018-11-24] MEDS: CEFAZOLIN 2 GM/100 ML FROZ.PIGGY IV (10:30)
--- NOTE | 2018-11-24 10:58 | SUR.OPER ---
Supine on padded OR bed. Pillow under head, arms secured on padded armboards <90 degree abduction. Safety belt across torso. Non-operative leg secured with tape over blanket over lower leg. Operative leg secured in DeMayo/Julio positioner.
[2018-11-24] MEDS: BUPIVACAINE 0.25% W/ EPI 30 ML VIAL 60 ML INJ (11:09)
[2018-11-24] MEDS: BUPIVACAINE LIPOSOME 266 MG/20 ML VIAL INJ (11:09)
[2018-11-24] MEDS: MORPHINE 4 MG/ML INJ INJ (11:10)
[2018-11-24] MEDS: TRANEXAMIC ACID 1,000 MG VIAL 1000 MG INJ ×2 (11:12→11:43)
--- NOTE | 2018-11-24 12:11 | PM.OP.1 ---
Operative Date/Time/Diagnoses Date of procedure: 11/24/18 Time of procedure: 11:55 Pre-op diagnosis: Left knee osteoarthritis Post-op diagnosis: same Procedure & Clinicians Procedure: Left total knee replacement Same procedure as scheduled: Yes Indications: The patient has had progressively worsening left knee pain with radiographic changes consistent with arthritis. Non-operative management has failed and the patient has requested total knee replacement. The risks, benefits and alternatives to surgery were discussed with the patient prior to proceeding. Risks discussed included, but were not limited to, failure to relieve pain, stiffness, infection, nerve damage, deep venous thrombosis, pulmonary embolism, stroke, coma, heart attack, permanent paralysis and , as well as the potential need for eventual revision of the prosthetic. Surgeon: Fabio Crum Motorcoach Operator: Radha Layne Click Yes if Unassisted: No Anesthesia Type: General and Local Operative Notes Findings: Severe tricompartmental osteoarthritis Closure Type: primary Specimen(s): none sent Prosthetic devices, grafts, tissues, transplants, or devices: Implants used in this procedure were manufactured by the [employer] and [employer] and included the BCS II Journey total knee replacement with a size 5 cobalt chromium femoral component, a size 4 non porous tibial base plate, a 10 mm cross-linked polyethylene tibial insert and a 35 mm oval Katina II patella. Applied: implant(s) Estimated Blood Loss (mL): 25 Blood products transfused: none Tourniquet time (min): 48 Procedure in detail: The patient was seen in the pre-operative area, where the left knee was identified as the operative site and this was marked with my initials. The patient received pre-operative antibiotics, and was taken to the operating room and placed on the operative table in the supine position. After satisfactory anesthesia, a customer account representative out was performed. The left leg was encircled with a tourniquet about the proximal thigh, and the leg was prepared from the toes to the tourniquet with ChloroPrep in the usual fashion and draped through sterile drapes. The leg was elevated and exsanguinated with Eschmark bandage and the tourniquet inflated to 250 mmHg pressure. The knee was approached through an approximately 18 cm incision centered over the patella and carried into the knee through a medial parapatellar arthrotomy. The anterior osteophytes and soft tissues were removed. The rotational landmarks of John's line and the transepicondylar axis were marked on the femur with electrocautery, and intramedullary guide holes for the femur and tibia were created. The distal femoral cut was made in 6 degrees of valgus using the intramedullary guide at the primary cut setting. The proximal tibial cut was then made using the intramedullary guide, taking 9 mm of bone off the less involved side. The extension gap was checked and the rotation of the femoral component confirmed with the gap balancing blocks. The anterior, posterior and chamfer cuts were then made. The posterior osteophytes and soft tissues were then removed. The posterior capsule was injected with part of a mixture of 60 ml 0.25% Marcaine mixed with 20 ml Exparel and 4 mg of morphine for post-operative pain control. The remainder of this mixture was injected into the capsule and subcutaneous tissues during cement curing. The tibia was prepared with the rotation set by an extra medullary guide. Trial tibial and femoral components were then placed and the intercondylar notch cut through the femoral trial. Range of motion was 0-125 degrees, with good stability throughout the range. Further flexion was limited by the patient's obesity. The patella was then cut to accommodate the patellar prosthetic. There was no need for a lateral release. The trials were then removed, and the femoral hole plugged with a bone plug. The bone was prepared with pulsatile lavage, and dried with a sponge. Cement was applied and the final prosthetics placed. Excess cement was removed during and after cement curing. After confirming there was no extruded cement posteriorly, the final tibial insert was placed. The knee was copiously irrigated and the tourniquet deflated. Hemostasis was obtained. The capsule was closed with interrupted # 2 polyester sutures. The subcutaneous layer was closed with 3-0 Vicryl, and the skin with a running 3-0 V-Lock suture and SteriStrips. An Aquacel Ag dressing was applied and the patient was taken to recovery having tolerated the procedure well. Complications: none Post-operative Condition: stable Disposition: PACU Plan for aftercare: The patient will be maintained on a standard total knee replacement protocol with weight bearing as tolerated. The patient will receive aspirin and sequential compression devices for DVT prophylaxis. The patient will be discharged home when safe for the home environment.
[2018-11-24] MEDS: HYDROMORPHONE 2 MG INJ 0.5 MG IV ×2 (12:23→12:36)
--- NOTE | 2018-11-24 12:46 | SUR.PHASEI ---
Intermittent desaturation to upper 80s, 2lnc applied, deep breaths encouraged. O2 sat 97%2lnc..
--- NOTE | 2018-11-24 12:53 | SUR.PHASEI ---
Report called to
--- NOTE | 2018-11-24 13:16 | SUR.PHASEI ---
Pt transferred to the floor with belongings bag and CPAP. VS stable. LT knee DRSG CDI. IV saline locked x2. Pt able to move paulo ankles. Report to Keya.
[2018-11-24] MEDS: LACTATED RINGERS 1,000 ML 125 ML IV ×2 (14:15→22:05)
[2018-11-24] MEDS: OXYCODONE IR 5 MG TABLET PO ×3 (14:55→21:59)
[2018-11-24] MEDS: ONDANSETRON 4 MG/2 ML INJ IV (18:08)
--- NOTE | 2018-11-24 19:04 | PT.IIE ---
Current Diagnoses Unilateral primary osteoarthritis, left knee (11/24/18) Surgery Performed Operation Date: 11/24/18 10:15 Actual Procedures p Total Knee Arthroplasty(Left) - Fabio Crum MD Surgical History (Last Updated 06/24/18 @ 13:20 by Sima Leija, RN) History of 3 sections (Acute) History of lumbar fusion (Acute ~2014) History of lumbar laminectomy (Acute) Hx of bariatric surgery (Acute ~01/2014) Hx of cholecystectomy (Acute ~09/2006) Hx of lumbar discectomy (Acute ~2012) Hx of tubal ligation (Acute) S/P hernia surgery (Acute) Medical History (Last Updated 06/24/18 @ 13:21 by Sima Leija RN) Ankle fracture, left (Acute ~2007) Arthritis (Acute) Bilateral knee pain (Acute) Eczema (Acute) Edema (Acute) Fibromyalgia (Acute) Fragile skin (Acute) Hearing impaired (Acute) HTN (hypertension) (Acute) Hypothyroid (Acute) Osteoarthritis (Acute) Sleep apnea (Acute) Physical Therapy Inpatient Evaluation/Re-Eval M1 PT/OT-IP Prior Functional Status Start: 11/24/18 18:47 Freq: NEEDED Status: Active Protocol: Document 11/24/18 18:48 [facility] (Rec: 11/24/18 19:04 [facility] [id number]) Medical Review Prior Functional Status Medical History Reviewed Yes Diet/Fluid Consistency Regular Communication WNL Social History Household Members spouse Living Arrangements House Number of Floors (Floors) One Floor Number of Stairs To Enter/Railing? 5 LISA w/rail Home Environment Standard Height Toilet,Walk in Shower Home Equipment Raised Toilet Seat w/Armrests, Grab Bars In Shower Additional Social History Comment retired M2 PT-IP Current Condition Start: 11/24/18 18:47 Freq: NEEDED Status: Active Protocol: Document 11/24/18 18:48 [facility] (Rec: 11/24/18 19:04 [facility] [id number]) Physical Therapy Current Condition Current Condition Evaluation Date 11/24/18 Treatment Diagnosis L TKA Weight Bearing Status Weight Bearing Status Weight Bear as Tolerated M3 PT-IP Subjective Start: 11/24/18 18:47 Freq: NEEDED Status: Active Protocol: Document 11/24/18 18:48 [facility] (Rec: 11/24/18 19:04 [facility] [id number]) Subjective Physical Therapy Visit Type Type Initial Evaluation Visit Start Time 17:03 Visit Stop Time 17:30 Total Visit Minutes 27 Number of MARKETING TECHNOLOGIST Visits 0 Physical Therapy Visit Comments Patient Comments Pt agreeable to get up Therapy Pain Assessment Pain When Pain Assessed During Mobility Pain Present Pain Present Pain Reported Location Left Knee Pain Management Techniques Apply Cold,Re-positioning M4 PT-IP Mobility and Gait Start: 11/24/18 18:47 Freq: NEEDED Status: Active Protocol: Document 11/24/18 18:48 [facility] (Rec: 11/24/18 19:04 [facility] [id number]) PT-Bed Mobility Assessment Supine to Sit Supine to Sit Moderate Assistance Scooting Scooting to Edge of Bed Moderate Assistance PT-Transfer Assessment Sit to and From Stand Sit to and from Stand Contact Guard Assistance, Moderate Assistance,Use of Upper Extremities Equipment Transfer Assistive Device Gait Belt,Front Wheeled Walker Orthotic/Prosthetic Devices or Brace: No Transfers Transfer Destination Bedside Commode Transfer Technique Stand Step Pivot Transfer Ability Level of Assist Moderate Assistance Comments Mobility Comments Pt required mod A for sit to stand from bed but CGA from commode. Cueing for LLE placement during transfer Gait Assessment Gait Gait Assistance Required: Contact Guard Assist Distance (Feet) 10 Able to Maintain Weight Bearing Status Yes During Gait Assistive Devices Assistive Device Gait Belt,Front Wheeled Walker Gait Deviations General Gait Pattern Antalgic,Decreased Stride Length,Decreased Feet Clearance,Flexed Trunk Factors Limiting Gait Function Factors Limiting Gait Function Decreased Activity Tolerance, Decreased Strength,Limited Range of Motion,Pain,Poor Balance Comments Gait Comments Pt was able to amb around bed to chair with CGA with cueing for step to pattern w/FWW PT-Balance Assessment Sitting Balance and Reactions Static Sitting Balance Ability Fair Dynamic Sitting Balance Ability Fair Standing Balance and Reactions Static Standing Balance Ability Good Dynamic Standing Balance Ability Fair Device Used fww M5 PT-IP Objective Assessments Start: 11/24/18 18:47 Freq: NEEDED Status: Active Protocol: Document 11/24/18 18:48 [facility] (Rec: 11/24/18 19:04 [facility] [id number]) Orientation Orientation/Cognition Level of Alertness Alert Gross Range of Motion Lower Extremity ROM Assessment Left Impaired Strength Lower Extremity Strength Assessment Left Impaired M6 PT-IP Treatment Start: 11/24/18 18:47 Freq: NEEDED Status: Active Protocol: Document 11/24/18 18:48 [facility] (Rec: 11/24/18 19:04 [facility] [id number]) Physical Therapy Treatment Education Education Provided Weight Bearing Status,Safety M7 PT-IP Assessment and Plan Start: 11/24/18 18:47 Freq: NEEDED Status: Active Protocol: Document 11/24/18 18:48 [facility] (Rec: 11/24/18 19:04 [facility] [id number]) PT Summary Assessment and Plan Potential Rehabilitation Potential Excellent Status of Condition at Evaluation Evolving Summary Impairments Pain,ROM,Strength,Balance,Bed Mobility,Transfers,Gait, Activity Tolerance Assessment Summary Pt presents day of surgery after L TKA with good motivation & cooperation with PT. Vitals were WNL for supine to sit and pt did require some assistance with mobility from bed but did well standing from commode and ambulating a small distance today. She is likely to cont to advance with PT and would benefit from cont PT in order to advance her mobility in order to return home with her . Goals Bed Mobility Goal Independent Transfer Goal Independent Gait Goal Standby Assistance Gait Distance 150ft Other Goals up/down 5 steps with rail SBA Days to Meet Goals 4 Frequency of Treatment Frequency Of Treatment Twice a Day Treatment Plan Physical Therapy Treatment Plan Bed Mobility Training,Transfer Training,Gait Training, Therapeutic Exercise,Balance Retraining,Post Op Education, Discharge Planning,Hot or Cold Pack,Neuromuscular Re-ed, Manual Therapy Other Recommendations and Next Treatment work on gait, ther ex for TKA, Focus bed mobility & transfer training Recommendations To Nursing Amount of Assist Needed 1 Person Assist Discharge Recommendations PT Discharge Recommendations Home with Assistance, Outpatient PT
[2018-11-24] MEDS: PANTOPRAZOLE 20 MG TABLET PO (21:58)
[2018-11-24] MEDS: GABAPENTIN 300 MG CAPSULE 900 MG PO (21:58)
[2018-11-24] MEDS: ASPIRIN EC 81 MG TABLET PO (21:58)
[2018-11-24] MEDS: DOCUSATE 100 MG CAPSULE PO (21:59)
[2018-11-25] MEDS: LEVOTHYROXINE 100 MCG TABLET 200 MCG PO (05:27)
[2018-11-25] MEDS: OXYCODONE IR 5 MG TABLET PO ×6 (05:28→20:31)
[2018-11-25 05:32] VITALS: BP 120/64; PULSE 65; RESP 18; TEMP 36.2; O2SAT 97
[2018-11-25 07:21] LABS: Hematocrit 32.4 % (36-46); Hemoglobin 10.7 g/dL (12.0-16.0)
--- NOTE | 2018-11-25 07:21 | PM.DS.1 ---
History of Present Illness History of Present Illness Date Patient Seen: 11/25/18 Time Patient Seen: 07:22 Chief complaint: [id number] LEFT TKA Narrative: The history and physical is contained in the chart in a previously dictated note. Please refer to that note for this information. Discharge Providers Provider Date of admission: 11/24/18 08:03 Discharge Date: 11/25/18 Primary care physician: Nigel Hughes MD Consults: 11/24/18 13:09 Consult to Discharge Planning Routine Comment: Consult to Physical Therapy Evaluate & Treat Comment: Physician Instructions: postop TKA protocol Discharge provider: Fabio Crum MD Summary Hospital Course Discharge Diagnosis: 1. Left knee osteoarthritis Hospital Course: The patient was admitted to the hospital and taken directly to the operating room where she underwent a left total knee replacement without complications. She was very comfortable overnight with the exception of mild nausea immediately following surgery. At the time of this dictation and it is felt she likely will be able to be discharged later today. Status at Discharge Cognitive/behavioral status at discharge: oriented and at baseline, oriented Functional status at discharge: uses cane/walker Overall status at discharge: patient is progressing back to baseline Time Spent with Patient Time spent: Less than 30 minutes Exam Vital Signs (past 8 hours): - 11/24/18 23:55 11/25/18 05:32 Temperature 97.3 F L 97.2 F L Pulse Rate 59 L 65 Respiratory Rate 18 18 Blood Pressure 125/66 120/64 Pulse Oximetry 98 97 Oxygen Delivery Method Room Air,CPAP Oxygen Flow Rate 0 Narrative Exam Narrative: Left knee wound is dressed with no drainage on the bandage. Calf is soft. Light touch and motion are intact in the left lower extremity. Objective Labs Result Diagrams: 11/25/18 06:50 Discharge Plan Discharge Plan Patient Disposition: Home Discharge Med Rec/Prescriptions Prescriptions: New oxycodone 5 mg Tablet 5 mg PO Q3HR PRN (Reason: Pain, Moderate (4-6)) Qty: 40 RF: 0 Continued liothyronine [Cytomel] 5 mcg Tablet 5 mcg PO DAILY RF: 0 acetaminophen [Tylenol Arthritis Pain] 650 mg Tablet Extended Release 1,300 mg PO TID RF: 0 gabapentin 300 mg Capsule 300 mg PO SEEINSTR RF: 0 levothyroxine [Synthroid] 200 mcg Tablet 200 mcg PO SEEINSTR RF: 0 furosemide 20 mg Tablet 20 mg PO QAM RF: 0 ibuprofen 600 mg Tablet 600 mg PO TID RF: 0 losartan 100 mg Tablet 100 mg PO DAILY RF: 0 omeprazole 20 mg Tablet,Delayed Release (Dr/Ec) 20 mg PO BEDTIME RF: 0 aspirin 81 mg Tablet,Delayed Release (Dr/Ec) 81 mg PO BID Qty: 50 RF: 0 docusate sodium [DOK] 100 mg Capsule 100 mg PO BID Qty: 60 RF: 0 Follow up/Referrals: Nigel Hughes MD [Primary Care Provider] - Fabio Crum MD [Physician] - 3-5 Days Provider Discharge Instructions Diet: Diet as Tolerated and Regular Activity: You may bear weight as tolerated on your left leg. Cold/Heat Therapy: Apply ice for 15 minutes of every hour as needed to the left knee for pain control. Skin/Wound/Dressing Care Report to your healthcare provider any signs of infection, such as:: chills, fever, night sweats, increased pain, unusual drainage and unusual redness Dressing: Leave the Harish wrap intact until 3 days after surgery. You may then remove the Harish wrap and shower normally with the deeper dressing in place. Leave the deeper dressing on until your follow-up. If the center strip of the deeper dressing becomes saturated with either water or blood please call the office to have it changed. Visit Report/Discharge Packet Instructions: DI for Knee Replacement Stand Alone Forms: Surgery Discharge Discharge Data Primary Care Provider: Nigel Hughes Quality VTE Deep Vein Thrombosis/Pulmonary Embolism Present on Admission: No
[2018-11-25 08:00] VITALS: BP 124/61; PULSE 68; RESP 16; TEMP 36.4; O2SAT 97
[2018-11-25] MEDS: DOCUSATE 100 MG CAPSULE PO ×2 (08:17→20:31)
[2018-11-25] MEDS: ASPIRIN EC 81 MG TABLET PO ×2 (08:17→20:31)
[2018-11-25] MEDS: GABAPENTIN 600 MG TABLET PO (08:17)
[2018-11-25] MEDS: ACETAMINOPHEN 325 MG TABLET 975 MG PO ×2 (08:18→20:30)
[2018-11-25] MEDS: LIOTHYRONINE 5 MCG TABLET PO (08:19)
[2018-11-25] MEDS: FUROSEMIDE 20 MG TABLET PO (08:19)
[2018-11-25] MEDS: MELOXICAM 7.5 MG TABLET 15 MG PO (08:22)
[2018-11-25] MEDS: SODIUM CHLORIDE 0.9% FLUSH 10 ML IV ×2 (08:59→20:32)
--- NOTE | 2018-11-25 09:57 | PC.NURSE ---
Addendum entered by Milana Hathaway R.N. 11/25/18 14:40: Patient given 5mg oxycodone before working with therapy and doing stairs. After therapy patient rating pain 5/10 requesting more pain medication. Patient having more difficulty getting out of chair this afternoon and having more pain. Patient not wanting to discharge today. Discharge order cancelled, per Dr Crum orders this morning. Original Note: Patient given 5mg oxycodone before ambualting with physical therapy, rated pain before ambulation 3/10.
--- NOTE | 2018-11-25 10:00 | PT.IPTN ---
Current Diagnoses Unilateral primary osteoarthritis, left knee (11/24/18) Surgery Performed Operation Date: 11/24/18 10:15 Actual Procedures p Total Knee Arthroplasty(Left) - Fabio Crum MD Physical Therapy Treatment Note M2 PT-IP Current Condition Start: 11/24/18 18:47 Freq: NEEDED Status: Active Protocol: Document 11/24/18 18:48 [facility] (Rec: 11/24/18 19:04 [facility] [id number]) Physical Therapy Current Condition Current Condition Evaluation Date 11/24/18 Treatment Diagnosis L TKA Weight Bearing Status Weight Bearing Status Weight Bear as Tolerated M3 PT-IP Subjective Start: 11/24/18 18:47 Freq: NEEDED Status: Active Protocol: Document 11/25/18 09:26 [facility] (Rec: 11/25/18 12:25 [facility] [id number]) Subjective Physical Therapy Visit Type Type Treatment Note Visit Start Time 09:26 Visit Stop Time 10:00 Total Visit Minutes 34 Number of CAR RENTAL AGENCY MANAGER Visits 1 Physical Therapy Visit Comments Patient Comments Pt agreeable to do therapy. Therapy Pain Assessment Pain When Pain Assessed During Mobility Pain Present Pain Present Pain Reported Location Left Knee Intensity 4 Scale Used Numeric (1 - 10) Pain Management Techniques Apply Cold,Re-positioning M4 PT-IP Mobility and Gait Start: 11/24/18 18:47 Freq: NEEDED Status: Active Protocol: Document 11/25/18 09:26 [facility] (Rec: 11/25/18 12:25 [facility] [id number]) PT-Bed Mobility Assessment Supine to Sit Supine to Sit Standby Assistance,1 Person Assistance,Bedrails Scooting Scooting to Edge of Bed Standby Assistance PT-Transfer Assessment Sit to and From Stand Sit to and from Stand Contact Guard Assistance,1 Person Assistance,Use of Upper Extremities Equipment Transfer Assistive Device Gait Belt,Front Wheeled Walker Orthotic/Prosthetic Devices or Brace: No Transfers Transfer Destination Chair Transfer Technique Stand Step Pivot Transfer Ability Level of Assist Contact Guard Assistance,1 Person Assistance,Use of Upper Extremities Comments Mobility Comments Pt improved with bed mobility and transfer. Gait Assessment Gait Gait Assistance Required: Contact Guard Assist Distance (Feet) 150 Able to Maintain Weight Bearing Status Yes During Gait Assistive Devices Assistive Device Gait Belt,Front Wheeled Walker Gait Deviations General Gait Pattern Antalgic,Decreased Stride Length,Decreased Feet Clearance,Flexed Trunk Factors Limiting Gait Function Factors Limiting Gait Function Decreased Activity Tolerance, Decreased Strength,Limited Range of Motion,Pain,Poor Balance Comments Gait Comments Pt ambulated in kaminski ~150ft with cues for step sequencing with walker and posture. Pt had good safety awareness. M5 PT-IP Objective Assessments Start: 11/24/18 18:47 Freq: NEEDED Status: Active Protocol: Document 11/24/18 18:48 [facility] (Rec: 11/24/18 19:04 [facility] [id number]) Orientation Orientation/Cognition Level of Alertness Alert Gross Range of Motion Lower Extremity ROM Assessment Left Impaired Strength Lower Extremity Strength Assessment Left Impaired M6 PT-IP Treatment Start: 11/24/18 18:47 Freq: NEEDED Status: Active Protocol: Document 11/25/18 09:26 [facility] (Rec: 11/25/18 12:25 [facility] [id number]) Physical Therapy Treatment Exercises Exercises Ankle Pumps,Quad Sets,Heel Slides,Straight Leg Raises, Short Arc Quads M7 PT-IP Assessment and Plan Start: 11/24/18 18:47 Freq: NEEDED Status: Active Protocol: Document 11/25/18 09:26 [facility] (Rec: 11/25/18 12:25 [facility] [id number]) PT Summary Assessment and Plan Potential Rehabilitation Potential Excellent Status of Condition at Evaluation Evolving Summary Impairments Pain,ROM,Strength,Balance,Bed Mobility,Transfers,Gait, Activity Tolerance Assessment Summary Pt improving with all mobility . Pt has good pain controll and has good safety awareness during transfers and gait. Pt will need to complete stair training before discharge. Goals Bed Mobility Goal Independent Transfer Goal Independent Gait Goal Standby Assistance Gait Distance 150ft Other Goals up/down 5 steps with rail SBA Days to Meet Goals 4 Frequency of Treatment Frequency Of Treatment Twice a Day Treatment Plan Physical Therapy Treatment Plan Bed Mobility Training,Transfer Training,Gait Training, Therapeutic Exercise,Balance Retraining,Post Op Education, Discharge Planning,Hot or Cold Pack,Neuromuscular Re-ed, Manual Therapy Other Recommendations and Next Treatment gait, ther ex, bed mobs and Focus stairs with . Recommendations To Nursing Amount of Assist Needed 1 Person Assist Discharge Recommendations PT Discharge Recommendations Home with Assistance, Outpatient PT
[2018-11-25 12:17] VITALS: BP 132/49; PULSE 67; RESP 17; TEMP 36.7; O2SAT 98
--- NOTE | 2018-11-25 14:46 | PT.IPTN ---
Current Diagnoses Unilateral primary osteoarthritis, left knee (11/24/18) Surgery Performed Operation Date: 11/24/18 10:15 Actual Procedures p Total Knee Arthroplasty(Left) - Fabio Crum MD Physical Therapy Treatment Note M2 PT-IP Current Condition Start: 11/24/18 18:47 Freq: NEEDED Status: Active Protocol: Document 11/24/18 18:48 [facility] (Rec: 11/24/18 19:04 [facility] [id number]) Physical Therapy Current Condition Current Condition Evaluation Date 11/24/18 Treatment Diagnosis L TKA Weight Bearing Status Weight Bearing Status Weight Bear as Tolerated M3 PT-IP Subjective Start: 11/24/18 18:47 Freq: NEEDED Status: Active Protocol: Document 11/25/18 14:13 [facility] (Rec: 11/25/18 16:13 [facility] [id number]) Subjective Physical Therapy Visit Type Type Treatment Note Visit Start Time 14:13 Visit Stop Time 14:46 Total Visit Minutes 29 Number of PRESSURE CONTROL SUPERVISOR Visits 2 Physical Therapy Visit Comments Patient Comments Pt reports not feeling as well as she was this morning, stating her pain is more even after pain meds but was agreeable to do therapy. present for CG training. Therapy Pain Assessment Pain When Pain Assessed During Mobility Pain Present Pain Present Pain Reported Location Left Knee Intensity 5 Scale Used Numeric (1 - 10) Pain Management Techniques Apply Cold,Re-positioning M4 PT-IP Mobility and Gait Start: 11/24/18 18:47 Freq: NEEDED Status: Active Protocol: Document 11/25/18 14:13 [facility] (Rec: 11/25/18 16:13 [facility] [id number]) PT-Bed Mobility Assessment Sit to Supine Sit to Supine Minimal Assistance,1 Person Assistance Scooting Scooting to Edge of Bed Standby Assistance PT-Transfer Assessment Sit to and From Stand Sit to and from Stand Moderate Assistance,2 Person Assistance,Use of Upper Extremities Equipment Transfer Assistive Device Gait Belt,Front Wheeled Walker Orthotic/Prosthetic Devices or Brace: No Transfers Transfer Destination Chair Transfer Technique Stand Step Pivot Transfer Ability Level of Assist Minimal Assistance,Moderate Assistance,1 Person Assistance ,2 Person Assistance,Use of Upper Extremities Comments Mobility Comments Pt required Mod A x2 for sit- stand from chair after pt had been sitting in chair for several hours. Pt needed Min A x1 when standing from WC. Gait Assessment Gait Gait Assistance Required: Contact Guard Assist Distance (Feet) 75 Able to Maintain Weight Bearing Status Yes During Gait Assistive Devices Assistive Device Gait Belt,Front Wheeled Walker Gait Deviations General Gait Pattern Antalgic,Decreased Stride Length,Decreased Feet Clearance,Flexed Trunk Factors Limiting Gait Function Factors Limiting Gait Function Decreased Activity Tolerance, Decreased Strength,Limited Range of Motion,Pain,Poor Balance Comments Gait Comments Pt ambulated in kaminski ~75 ft requiring cues for walker / step sequencing. Stair Climbing Assessment Evaluation Level of Assist On Stairs Contact Guard Assistance,1 Person Assistance Devices Stair Climbing Assistive Devices Left Railing,Right Railing Technique/Endurance Stair Climbing Direction Ascend and Descend Stair Climbing Technique Step to Step Number of Steps Climbed 3 Stair Climbing Set # Repetitions (reps) 1 Comments Stair Climbing Comments Pt able to climb steps once but didn't climb a second set due to pt feeling dizzy. Pt sat in WC and dizziness subsided. M5 PT-IP Objective Assessments Start: 11/24/18 18:47 Freq: NEEDED Status: Active Protocol: Document 11/24/18 18:48 [facility] (Rec: 11/24/18 19:04 [facility] [id number]) Orientation Orientation/Cognition Level of Alertness Alert Gross Range of Motion Lower Extremity ROM Assessment Left Impaired Strength Lower Extremity Strength Assessment Left Impaired M6 PT-IP Treatment Start: 11/24/18 18:47 Freq: NEEDED Status: Active Protocol: Document 11/25/18 14:13 [facility] (Rec: 11/25/18 16:13 [facility] [id number]) Physical Therapy Treatment Exercises Exercises Ankle Pumps,Quad Sets,Heel Slides Education Education Provided Weight Bearing Status,Safety Other Treatments Other Treatment Performed Put on SCD's once pt was back in bed. M7 PT-IP Assessment and Plan Start: 11/24/18 18:47 Freq: NEEDED Status: Active Protocol: Document 11/25/18 14:13 [facility] (Rec: 11/25/18 16:13 [facility] [id number]) PT Summary Assessment and Plan Summary Impairments Pain,ROM,Strength,Balance,Bed Mobility,Transfers,Gait, Activity Tolerance Assessment Summary Pt had increased difficulty with sit-stand due to stiffness and increased pain this afternoon. Pt was able to climb one set of stairs but will benefit from another trial on stairs with assisting. Pt has power chair at home which will assist her to stand. Pt has low car and a car transfer will be challenging. Pt may bring van which is higher and would be easier for pt to get out of once home. Pt states she has a son that lives across the street that will assist them out of car and into home. Goals Bed Mobility Goal Independent Transfer Goal Independent Gait Goal Standby Assistance Gait Distance 150ft Other Goals up/down 5 steps with rail SBA Days to Meet Goals 4 Frequency of Treatment Frequency Of Treatment Twice a Day Treatment Plan Physical Therapy Treatment Plan Bed Mobility Training,Transfer Training,Gait Training, Therapeutic Exercise,Balance Retraining,Post Op Education, Discharge Planning,Hot or Cold Pack,Neuromuscular Re-ed, Manual Therapy Other Recommendations and Next Treatment gait, ther ex, bed mobs and Focus stairs with . Recommendations To Nursing Amount of Assist Needed 1 Person Assist Discharge Recommendations PT Discharge Recommendations Home with Assistance, Outpatient PT
[2018-11-25 15:34] VITALS: BP 136/61; PULSE 70; RESP 16; TEMP 36.5; O2SAT 97
--- NOTE | 2018-11-25 16:29 | CM.DANOTE ---
DCP/Assessment: Reviewed chart. Patient is a 73yr old female [facility] for elective left TKA performed on 11-24-[address] Crum. PCP is Nigel Correa. Primary payor is 1)Medicare 2)[employer]. Met with patient and spouse this AM explained CM team role. Patient reports that she plans to d/c home with outpatient therapy when medically stable. Patient has outpatient therpay arranged to begin next week [facility]. Patient has all needed DME. Therapy evaluation pending. P: Home when stable. Continue to follow as needed. CARON Servin Discharge Planning/Care Management Advanced directive, confirm from FAMILY Start: 11/24/18 13:23 Freq: Q24H Status: Active Protocol: Document 11/24/18 16:00 LDV (Rec: 11/24/18 17:56 LDV [id number]) Advance Directive, confirm on record Time 16:00 Person contacted pt Copy received Yes CM Discharge Assessment Start: 11/25/18 16:27 Freq: Status: Active Protocol: Document 11/25/18 16:27 KJS (Rec: 11/25/18 16:29 KJS [id number]) Discharge Planning Assessment Assigned Tree Puller CARON Servin Contact Information Fabian Romano (spouse) Advance Directives? Yes Advance Directives on File No History Provided By Patient,Medical Record Prior Living Arrangements House Household Members spouse Type of transporation used prior to Drives own vehicle admit Independent with ADL's Yes Is patient alert and oriented? Yes Caregiver for Another No Patient/Family Preference OP PT Therapy Barriers to Discharge Yes Discharge Plan Home Transportation Arrangement Spouse can likely provide transport Referrals Initiated None needed Whiteboard Updated in Patient Room with Yes name and ext. # of Tree Puller Review Status In Process Next Review Type Continued Stay Review Pre-Anesthesia Assessment Start: 11/21/18 15:36 Freq: Status: Complete Protocol: Document 11/21/18 15:36 CAB (Rec: 11/21/18 15:39 CAB [id number]) Pre-Anesthesia Assessment PAC Comment Pt declined PAC phone assess, stated, not necessary. Chart review only Patient Also Known As (TAO) Sarah Patient Information Reviewed Via Chart Review Primary Care Provider Nigel Hughes Seen Specialist in Last 12 Months Yes Specialist Seen Orthopedist Preferred Language Telugu Height 167.64 cm Weight 127.006 kg Body Mass Index (BMI) 45.1 Hearing Ability Hard of Hearing,Use of Hearing Aid Visual Assist Glasses Dentition Type Full- Upper & Lower Barriers to Learning None Other Aids Yes: CPAP Hx Anesthesia Reactions No Hx Family Anesthesia Reaction No Hx Malignant Hyperthermia No Hx Blood Transfusions No Hx Blood Transfusion Reaction No Anesthesia Review Requested No Nutrition Coordinator No alcohol intake former Smoking Status Never smoker Substance Use Type does not use Pain Present Pain Reported Musculoskeletal Symptoms Abnormal Gait,Back Pain, Difficulty Walking,Joint Pain History of Falling (Recent or History of Yes ) Patient is completely paralyzed or No completely immobile Prosthesis or Orthotic Device Cane,Front Wheel Walker Mental Status Oriented to own ability Is patient on oxygen? No Does patient have CUMMINS/SOB No Hx Sleep Apnea Yes CPAP/BIPAP use prescribed and used routinely Currently Taking a Beta Kareem No Can You Climb a Flight of Stairs Without Yes SOB Hx Chest Pain No Hx SOB No Hx Syncope or Dizziness No Anti-Coagulant Therapy No Has a Vulcanizer Operator No Cardiac Testing No Hx Pacemaker/ICD No Pacemaker Rep Required? No Cardiac Clearance Received Not Applicable Diet Type At Home Regular dysphagia No Bladder Pattern Incontinent, Stress Urinary Catheter Present No Hx Urinary Self Catheterization No Diabetes No Patient No Lactating No Hx Drug Resistant Organism Pseudomonas 2011 Presence of External or Internal Medical Yes: CPAP, hearing aids, Devices lumbar fusion hardware Have you traveled outside the [facility] States in the last 30 days? Marital Status Lives With spouse Prior Living Arrangements House Number of Floors (Floors) One Floor Support System Child/Children,Spouse Patient Discharge Plan Description Return Home Feels Safe in Current Environment Yes Been Physically Hurt or Threatened By a No Person in Current Environment Do you have thoughts of harming yourself None or others? Are you currently considering suicide? No Do you have a plan to hurt yourself or No Plan others? Do You Have Any Spiritual Beliefs That No May Affect Your HC Choices? Do You Have Any Cultural Practices That No May Affect Your HC Choices? Spiritual Referral None Comment Adventism Who Can We Speak to About Patient's Care Family, friends Identifying Code for Release of Patient Declines to issue Information Health Care Proxy/Next of Kin aJylan Moore () Health Care Proxy Emergency Contact Name Jaylan Moore () Emergency Contact Advance Directives? Yes Advance Directives on File No Power of Gynaecological Oncologist Yes Power of Gynaecological Oncologist Name Jaylan Moore () Power of Gynaecological Oncologist
[2018-11-25 19:54] VITALS: BP 146/52; PULSE 83; RESP 17; TEMP 37.1; O2SAT 95
[2018-11-25] MEDS: GABAPENTIN 300 MG CAPSULE 900 MG PO (20:31)
[2018-11-26] VITALS (11 sets, daily range): BP systolic 131–163; BP diastolic 32–82; PULSE 79–112; RESP 16–20; TEMP 36.6–37.4; O2SAT 92–99; BMI 45.5
[2018-11-26] MEDS: OXYCODONE IR 10 MG TABLET PO ×2 (01:37→08:53)
--- NOTE | 2018-11-26 03:56 | PC.NURSE ---
0115 Pt using call light to request pain medication. Pt rates pain L knee at 5-6/10. Requesting 10 mg Oxycontin. Medicated per request. Rm Cartagena I. Good CMS. Ice pack renewed and LLE repositioned on lengthwise pillow from knee to foot. Pt encouraged to call with any questions or needs.
[2018-11-26] MEDS: OXYCODONE IR 5 MG TABLET PO ×2 (05:40→19:01)
[2018-11-26] MEDS: LEVOTHYROXINE 100 MCG TABLET 200 MCG PO (05:41)
--- NOTE | 2018-11-26 07:06 | P.DS_ITS ---
History of Present Illness History of Present Illness Date Patient Seen: 11/26/18 Time Patient Seen: 07:06 Chief complaint: [id number] LEFT TKA Narrative: The history and physical is contained in the chart in a previously dictated note. Please refer to that note for this information. Discharge Providers Provider Date of admission: 11/24/18 08:03 Discharge Date: 11/26/18 Primary care physician: Nigel Hughes MD Consults: 11/24/18 13:09 Consult to Discharge Planning Routine Comment: Consult to Physical Therapy Evaluate & Treat Comment: Physician Instructions: postop TKA protocol Discharge provider: Fabio Crum MD Summary Hospital Course Discharge Diagnosis: 1. Left knee osteoarthritis 2. Post hemorrhagic anemia Hospital Course: Patient was admitted to the hospital and taken directly to the operating room on November 24, 2018. She underwent a left total knee replacement without complications. She made excellent progress with physical therapy on the 1st day postoperatively however did have an episode of dizziness when attempting to climb the stairs and was maintained in the hospital as result. She is fe eling a little better on the morning of postoperative day 2 and the plan is for discharge today. Status at Discharge Cognitive/behavioral status at discharge: oriented Functional status at discharge: uses cane/walker Overall status at discharge: patient is progressing back to baseline Time Spent with Patient Time spent: Less than 30 minutes Exam Vital Signs (past 8 hours): - 11/26/18 01:36 11/26/18 05:40 Temperature 97.9 F 98.5 F Pulse Rate 80 79 Respiratory Rate 16 17 Blood Pressure 153/65 H 148/58 H Pulse Oximetry 97 94 Oxygen Delivery Method Room Air Oxygen Flow Rate 0 Narrative Exam Narrative: Left knee wound is dressed with no drainage on the bandage. Calf is soft. Light touch and motion are intact in the left lower extremity. Objective Labs Result Diagrams: 11/25/18 06:50 Labs: Laboratory Results - last 24 hr 11/25/18 06:50 Hgb 10.7 L Hct 32.4 L Discharge Plan Discharge Plan Patient Disposition: Home Discharge Med Rec/Prescriptions Prescriptions: New oxycodone 5 mg Tablet 5 mg PO Q3HR PRN (Reason: Pain, Moderate (4-6)) Qty: 40 RF: 0 Continued liothyronine [Cytomel] 5 mcg Tablet 5 mcg PO DAILY RF: 0 acetaminophen [Tylenol Arthritis Pain] 650 mg Tablet Extended Release 1,300 mg PO TID RF: 0 gabapentin 300 mg Capsule 300 mg PO SEEINSTR RF: 0 levothyroxine [Synthroid] 200 mcg Tablet 200 mcg PO SEEINSTR RF: 0 furosemide 20 mg Tablet 20 mg PO QAM RF: 0 ibuprofen 600 mg Tablet 600 mg PO TID RF: 0 losartan 100 mg Tablet 100 mg PO DAILY RF: 0 omeprazole 20 mg Tablet,Delayed Release (Dr/Ec) 20 mg PO BEDTIME RF: 0 aspirin 81 mg Tablet,Delayed Release (Dr/Ec) 81 mg PO BID Qty: 50 RF: 0 docusate sodium [DOK] 100 mg Capsule 100 mg PO BID Qty: 60 RF: 0 Follow up/Referrals: Nigel Hughes MD [Primary Care Provider] - Fabio Crum MD [Physician] - 3-5 Days Provider Discharge Instructions Diet: Diet as Tolerated and Regular Activity: You may bear weight as tolerated on your left leg. Cold/Heat Therapy: Apply ice for 15 minutes of every hour as needed to the left knee for pain control. Skin/Wound/Dressing Care Report to your healthcare provider any signs of infection, such as:: chills, fever, night sweats, increased pain, unusual drainage and unusual redness Dressing: Leave the Harish wrap intact until 3 days after surgery. You may then remove the Harish wrap and shower normally with the deeper dressing in place. Leave the deeper dressing on until your follow-up. If the center strip of the deeper dressing becomes saturated with either water or blood please call the office to have it changed. Visit Report/Discharge Packet Instructions: DI for Knee Replacement, Oxycodone Stand Alone Forms: Surgery Discharge Discharge Data Primary Care Provider: Nigel Hughes Quality VTE Deep Vein Thrombosis/Pulmonary Embolism Present on Admission: No
[2018-11-26] MEDS: LOSARTAN 50 MG TABLET 100 MG PO (08:23)
[2018-11-26] MEDS: GABAPENTIN 600 MG TABLET PO (08:23)
[2018-11-26] MEDS: DOCUSATE 100 MG CAPSULE PO ×2 (08:24→20:56)
[2018-11-26] MEDS: ASPIRIN EC 81 MG TABLET PO ×2 (08:24→20:56)
[2018-11-26] MEDS: LIDOCAINE PATCH 1 EACH ADH..PATCH TOP (08:25)
[2018-11-26] MEDS: ACETAMINOPHEN 325 MG TABLET 975 MG PO ×2 (08:25→20:54)
[2018-11-26] MEDS: LIOTHYRONINE 5 MCG TABLET PO (08:28)
[2018-11-26] MEDS: SODIUM CHLORIDE 0.9% FLUSH 10 ML IV (08:29)
[2018-11-26] MEDS: MELOXICAM 7.5 MG TABLET 15 MG PO (08:31)
--- NOTE | 2018-11-26 09:50 | PT.IPTN ---
Current Diagnoses Unilateral primary osteoarthritis, left knee (11/24/18) Surgery Performed Operation Date: 11/24/18 10:15 Actual Procedures p Total Knee Arthroplasty(Left) - Fabio Crum MD Physical Therapy Treatment Note M2 PT-IP Current Condition Start: 11/24/18 18:47 Freq: NEEDED Status: Discharge Protocol: Document 11/24/18 18:48 [facility] (Rec: 11/24/18 19:04 [facility] [id number]) Physical Therapy Current Condition Current Condition Evaluation Date 11/24/18 Treatment Diagnosis L TKA Weight Bearing Status Weight Bearing Status Weight Bear as Tolerated M3 PT-IP Subjective Start: 11/24/18 18:47 Freq: NEEDED Status: Discharge Protocol: Document 11/26/18 09:50 AB (Rec: 11/26/18 12:40 AB [id number]) Subjective Physical Therapy Visit Type Type Treatment Note Visit Start Time 09:50 Visit Stop Time 11:13 Total Visit Minutes 46 Notes pt seen for split visits: 950 am to 1012 and 1049 am to 1113 Number of MICA LAYER Visits 0 Physical Therapy Visit Comments Patient Comments pt agreed to do PT Therapy Pain Assessment Pain When Pain Assessed At Rest Pain Present Pain Present Pain Reported Location Left Knee Intensity 2 Scale Used Numeric (1 - 10) Pain Management Techniques Re-positioning,Timing of Activity with Medications M4 PT-IP Mobility and Gait Start: 11/24/18 18:47 Freq: NEEDED Status: Discharge Protocol: Document 11/26/18 09:50 AB (Rec: 11/26/18 12:40 AB [id number]) PT-Bed Mobility Assessment Supine to Sit Supine to Sit Standby Assistance Sit to Supine Sit to Supine Moderate Assistance,1 Person Assistance PT-Transfer Assessment Sit to and From Stand Sit to and from Stand Maximum Assistance,1 Person Assistance,Use of Upper Extremities Equipment Transfer Assistive Device Gait Belt,Front Wheeled Walker Orthotic/Prosthetic Devices or Brace: No Transfers Transfer Destination Bed Transfer Technique pt ambulated using FWW Transfer Ability Level of Assist Contact Guard Assistance,1 Person Assistance,Use of Upper Extremities Comments Mobility Comments seen pt initially without spouse in room. pt sitting on chair. Attempted sit <>stand x 5 reps and pt unable to stand despite max A provided. pt stated that she has a lift chair at home. waited for spouse to show up for caregiver training. pt seen again with spouse. caregiver training conducted. spouse was able to assist pt with bed mobility, sit <>stand , ambulation using FWW and stair climbing. Gait Assessment Gait Gait Assistance Required: Contact Guard Assist Distance (Feet) 75 Assistive Devices Assistive Device Gait Belt,Front Wheeled Walker Orthotic/Prosthetic Devices or Brace: No Gait Deviations General Gait Pattern Antalgic,Decreased Stride Length,Decreased Feet Clearance Factors Limiting Gait Function Factors Limiting Gait Function Decreased Activity Tolerance, Decreased Strength,Limited Range of Motion,Pain,Poor Balance,Poor Safety Awareness Stair Climbing Assessment Evaluation Level of Assist On Stairs Contact Guard Assistance,1 Person Assistance Devices Stair Climbing Assistive Devices Left Railing,Right Railing Technique/Endurance Stair Climbing Direction Ascend and Descend Stair Climbing Technique Step to Step Number of Steps Climbed 3 Stair Climbing Set # Repetitions (reps) 1 M5 PT-IP Objective Assessments Start: 11/24/18 18:47 Freq: NEEDED Status: Discharge Protocol: Document 11/24/18 18:48 [facility] (Rec: 11/24/18 19:04 [facility] [id number]) Orientation Orientation/Cognition Level of Alertness Alert Gross Range of Motion Lower Extremity ROM Assessment Left Impaired Strength Lower Extremity Strength Assessment Left Impaired M6 PT-IP Treatment Start: 11/24/18 18:47 Freq: NEEDED Status: Discharge Protocol: Document 11/26/18 09:50 AB (Rec: 11/26/18 12:40 AB [id number]) Physical Therapy Treatment Education Education Provided Safety M7 PT-IP Assessment and Plan Start: 11/24/18 18:47 Freq: NEEDED Status: Discharge Protocol: Document 11/26/18 09:50 AB (Rec: 11/26/18 12:40 AB [id number]) PT Summary Assessment and Plan Potential Rehabilitation Potential Good Summary Impairments Pain,ROM,Strength,Balance, Coordination,Sensation,Tone, Cognition,Bed Mobility, Transfers,Gait,Activity Tolerance Progress Towards Goals Slow Progress due to Pain,Slow Progress due to Activity Tolerance Assessment Summary caregiver training conducted and spouse was able to assist pt safely. pt with difficulty with sit to stand but stated that she has a lift chair at home. pt plans to go home and spouse to assist her. Goals Bed Mobility Goal Independent Transfer Goal Independent Gait Goal Standby Assistance Gait Distance 150ft Other Goals up/down 5 steps with rail SBA Days to Meet Goals 4 Frequency of Treatment Frequency Of Treatment Twice a Day Treatment Plan Physical Therapy Treatment Plan Bed Mobility Training,Transfer Training,Gait Training, Therapeutic Exercise,Balance Retraining,Post Op Education, Discharge Planning,Hot or Cold Pack,Neuromuscular Re-ed, Manual Therapy Other Recommendations and Next Treatment gait, ther ex, bed mobs and Focus stairs with . Recommendations To Nursing Amount of Assist Needed 1 Person Assist Discharge Recommendations PT Discharge Recommendations Home with Assistance, Outpatient PT
--- NOTE | 2018-11-26 11:03 | PC.NURSE ---
Pt given 10mg of oxycodone for complaints of 7/10 pain. Ambulated with PT and pt is going to go home after lunch around 1230.
--- NOTE | 2018-11-26 15:48 | DI.RAD.S_ITS ---
PROCEDURE: XR KNEE LT 1TO2V INDICATIONS: s/p knee replacement 2 days ago, fell on L knee today TECHNIQUE: 2 view(s) of the knee acquired. COMPARISON: [facility], IVAN, XR KNEE LT 1TO2V, 11/24/2018, 12:21. FINDINGS: Bones: Patient is status post knee joint arthroplasty. Hardware components are in expected positions and unchanged compared to 11/24/2018. No periprosthetic lucency to suggest loosening or infection. Visualized bony structures are intact. Soft tissues: Overlying postoperative changes are noted. Increased joint effusion. Prepatellar soft tissue swelling. IMPRESSION: No acute osseous abnormality. Stable appearance of the left knee total arthroplasty. Dictated by: Marciano Shaffer M.D. on 11/26/2018 at 16:56 Approved by: Marciano Shaffer M.D. on 11/26/2018 at 16:57
--- NOTE | 2018-11-26 16:09 | PC.NURSE ---
Pt was just released from hospital outpt surgery at 1230 after L Knee Replacement. Fell crossing threshold of front door x 2. Bleeding from surgical site under dressing. swelling to L knee which pt states looks the same as prior to surgery. 2+ pulses. surgery preformed by Dr Crum. Will get XR's and MD to consult Dr Crum. pt appears comfortable at this time
--- NOTE | 2018-11-26 17:08 | ED_ITS ---
HPI - Extremity Injury (Lower) <SHELBY Jovel - Last Filed: 11/27/18 00:14> General Chief Complaint: Extremity Injury, Lower Stated Complaint: Left Knee Pain Time Seen by Provider: 11/26/18 15:41 Source: patient and EMS Mode of arrival: EMS Limitations: no limitations History of Present Illness HPI Narrative: This is 73-year-old female, nonsmoker, who was brought in by EMS after patient injured her left knee. Patient had left knee replacement 2 days ago and discharged to home today. Patient states when she arrived home from the hospital her left leg buckled and could not be straightened out which caused her to fell on left knee. She has 5 steps to get it in to her house which she was unable to ambulate today. Patient had physical therapy twice before discharge to home which patient did well according to patient. Patient reports her pain is 3/10 at this time since she had taken oxycodone before discharged to home and is able to move her toes and has sensation. Patient reports the surgical site on her left knee has been oozing blood after the fall. Related Data Home Medications Medication Instructions Recorded Confirmed acetaminophen [Tylenol Arthritis 1,300 mg PO TID 06/24/18 11/26/18 Pain] furosemide 20 mg PO QAM 06/24/18 11/26/18 gabapentin 900 mg PO QPM 06/24/18 11/26/18 ibuprofen 600 mg PO TID 06/24/18 11/26/18 losartan 100 mg PO DAILY 06/24/18 11/26/18 omeprazole 20 mg PO BEDTIME 06/24/18 11/26/18 Benefiber And Fiber Gummies 1 dose PO DAILY 11/26/18 11/26/18 Glucosamine Chondroitin 1 cap PO DAILY 11/26/18 11/26/18 calcium citrate 1 tab PO QAM 11/26/18 11/26/18 cholecalciferol (vitamin D3) 5,000 unit PO DAILY 11/26/18 11/26/18 [Vitamin D3] cyanocobalamin (vitamin B-12) 500 mcg PO DAILY 11/26/18 11/26/18 [Vitamin B-12] gabapentin 600 mg PO QAM 11/26/18 11/26/18 hydroxyzine HCl 25 mg PO QID 11/26/18 11/26/18 levothyroxine [Synthroid] 200 mcg PO MOTUWETHFRSA 11/26/18 11/26/18 levothyroxine [Synthroid] 400 mcg PO KAM 11/26/18 11/26/18 lidocaine 1 patch TOPICAL PRN PRN 11/26/18 11/26/18 liothyronine 10 mcg PO DAILY 11/26/18 11/26/18 multivitamin 1 tab PO DAILY 11/26/18 11/26/18 mupirocin 1 applic TOPICAL BEDTIME 11/26/18 11/26/18 terbinafine HCl 250 mg PO DAILY 11/26/18 11/26/18 Previous Rx's Medication Instructions Recorded aspirin 81 mg PO BID #50 tab 07/03/18 docusate sodium [DOK] 100 mg PO BID #60 cap 07/03/18 oxycodone 5 mg PO Q3HR PRN #40 tab 11/25/18 Allergies Allergy/AdvReac Type Severity Reaction Status Date / Time adhesive tape Allergy Severe My skin Verified 11/24/18 08:55 peels off Sulfa (Sulfonamide Allergy Severe Hives Verified 11/24/18 08:55 Antibiotics) lisinopril AdvReac Intermediate Cough Verified 11/24/18 08:55 Review of Systems <SHELBY Jovel - Last Filed: 11/27/18 00:14> Review of Systems Narrative: General: Denies fever, chills, fatigue, malaise, sweats. HEENT: Denies sinus pain, ear pain, sore throat, difficulty swallowing, dizziness. Respiratory: Denies dyspnea, cough, wheezing, hemoptysis, sputum. Cardiovascular: Denies chest pain, palpitations, orthopnea, edema. Gastrointestinal: Denies nausea, vomiting, abdominal pain, diarrhea, constipation, melena. : Denies dysuria, frequency, incontinence, hematuria, urinary retention. Musculoskeletal: Reports increasing bleeding on left knee surgical site under the dressing. Reports mild discomfort on affected knee. Skin: Denies rash, skin lesions, or other. Neurologic: Denies weakness, headache, numbness, change in speech, confusion, seizures, incoordination. Psychiatric: No concerning psychosocial issues. 12-point review of systems is negative except for those stated above. Patient History <SHELBY Jovel - Last Filed: 11/27/18 00:14> Medical History Ankle fracture, left (Acute ~2007) Arthritis (Acute) Bilateral knee pain (Acute) Eczema (Acute) Edema (Acute) Fibromyalgia (Acute) Fragile skin (Acute) Hearing impaired (Acute) HTN (hypertension) (Acute) Hypothyroid (Acute) Osteoarthritis (Acute) Sleep apnea (Acute) Surgical History History of 3 sections (Acute) History of knee replacement (Acute) History of lumbar fusion (Acute ~2014) History of lumbar laminectomy (Acute) Hx of bariatric surgery (Acute ~01/2014) Hx of cholecystectomy (Acute ~09/2006) Hx of lumbar discectomy (Acute ~2012) Hx of tubal ligation (Acute) S/P hernia surgery (Acute) Social History household members: spouse Smoking Status: Never smoker alcohol intake: former Social History household members: spouse Smoking Status: Never smoker alcohol intake: former alcohol intake frequency: 0-2 drinks per day Substance Use Type: does not use Exam <SHELBY Jovel - Last Filed: 11/27/18 00:14> Narrative Exam Narrative: General appearance: well developed, well nourished, in no acute distress. Head: normocephalic, atraumatic, no scalp lesions, non-tender. Eye: pupil equal, round. EOMI. Nose: nares patent. Oral: mucosa moist. Neck/Thyroid: neck supple, full range of motion, no visible masses. Skin: no suspicious rashes, lesions over visible areas. Warm and dry. Heart: no clubbing, no cyanosis, no edema. Lungs: Breathing even and unlabored. No stridor. No accessory muscles used. Chest: normal shape and expansion. Abdomen: non-obese, non-distended. Neurologic: alert and oriented. 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 Psych: good eye contact, normal affect. Initial Vital Signs Initial Vital Signs: Vital Signs Temperature 99.2 F 11/26/18 15:44 Pulse Rate 112 H 11/26/18 15:44 Respiratory Rate 18 11/26/18 15:44 Blood Pressure 157/82 H 11/26/18 15:44 Pulse Oximetry 99 11/26/18 15:44 Extrem Right lower extremity: knee Details: normal to inspection and other (Well healed surgical incision) Left lower extremity: knee Details: abnormal to inspection, tenderness, swelling, abnormal ROM Details: held in an abnormal fashion Details: in extension, warmth Location: of the entire knee joint and other (sanguenous drainage collected under surgical dressing and slowly draining under the dressing which has not been removed) and foot Details: normal capillary refill, normal to inspection, toes with normal ROM, vascular exam Details: dorsalis pedis pulse present and motor-sensory exam Details: light-touch normal <Connie Flores MD - Last Filed: 11/27/18 07:53> Initial Vital Signs Initial Vital Signs: Vital Signs Temperature 99.2 F 11/26/18 15:44 Pulse Rate 112 H 11/26/18 15:44 Respiratory Rate 18 11/26/18 15:44 Blood Pressure 157/82 H 11/26/18 15:44 Pulse Oximetry 99 11/26/18 15:44 Course <SHELBY Jovel - Last Filed: 11/27/18 00:14> Orders Ordered: Acetaminophen (Tylenol) 975 mg PO TID [facility] Last Admin: 11/26/18 20:54 Dose: 975 mg Documented by: MAMIE Aspirin (Aspirin Ec) 81 mg PO BID [facility] Last Admin: 11/26/18 20:56 Dose: 81 mg Documented by: MAMIE Docusate Sodium (Colace) 100 mg PO BID [facility] Last Admin: 11/26/18 20:56 Dose: 100 mg Documented by: MAMIE Furosemide (Lasix) 20 mg PO DAILY [facility] Gabapentin (Neurontin) 600 mg PO DAILY [facility] Gabapentin (Neurontin) 900 mg PO BEDTIME [facility] Last Admin: 11/26/18 20:56 Dose: 900 mg Documented by: MAMIE Levothyroxine Sodium (Synthroid) 200 mcg PO [id number] [facility] Last Admin: 11/27/18 05:17 Dose: 200 mcg Documented by: RADHA Liothyronine Sodium (Cytomel) 5 mcg PO 0600 [facility] Last Admin: 11/27/18 05:17 Dose: 5 mcg Documented by: RADHA Losartan Potassium (Cozaar) 100 mg PO DAILY [facility] Meloxicam (Mobic) 15 mg PO 0800 [facility] Multivitamins (Tab-A-Willow) 1 tab PO DAILY [facility] Naloxone HCl (Narcan) 0.2 mg IV Q2MIN PRN PRN Reason: Opiate Reversal Oxycodone HCl (Percolone) 5 mg PO Q3HR PRN PRN Reason: Pain, Moderate (4-6) Last Admin: 11/27/18 05:14 Dose: 5 mg Documented by: Admin: 11/26/18 19:01 Dose: 5 mg Documented by: FATIMAH Oxycodone HCl (Percolone) 10 mg PO Q3HR PRN PRN Reason: Pain, Severe (7-10) Pantoprazole Sodium (Protonix) 20 mg PO BEDTIME [facility] Last Admin: 11/26/18 20:56 Dose: 20 mg Documented by: MAMIE Sodium Chloride (Normal Saline 0.9% Flush) 10 ml IV PRN PRN PRN Reason: Flush Sodium Chloride (Normal Saline 0.9% Flush) 10 ml IV BID [facility] Last Admin: 11/26/18 22:36 Dose: Not Given Documented by: MAMIE Discontinued Medications Liothyronine Sodium (Cytomel) 10 mcg PO 0600 [facility] Vital Signs Vital signs: Vital Signs - 8 hr 11/26/18 15:44 11/26/18 16:33 11/26/18 17:52 Temperature 99.2 F Pulse Rate 112 H 90 101 H Respiratory Rate 18 16 16 Blood Pressure 157/82 H Blood Pressure [Right Arm] 163/73 H 153/60 H Pulse Oximetry 99 94 93 11/26/18 18:02 Temperature Pulse Rate 98 H Respiratory Rate 16 Blood Pressure Blood Pressure [Right Arm] 159/57 H Pulse Oximetry 94 <Connie Flores MD - Last Filed: 11/27/18 07:53> Orders Ordered: Acetaminophen (Tylenol) 975 mg PO TID [facility] Last Admin: 11/26/18 20:54 Dose: 975 mg Documented by: MAMIE Aspirin (Aspirin Ec) 81 mg PO BID [facility] Last Admin: 11/26/18 20:56 Dose: 81 mg Documented by: MAMIE Docusate Sodium (Colace) 100 mg PO BID [facility] Last Admin: 11/26/18 20:56 Dose: 100 mg Documented by: MAMIE Furosemide (Lasix) 20 mg PO DAILY [facility] Gabapentin (Neurontin) 600 mg PO DAILY [facility] Gabapentin (Neurontin) 900 mg PO BEDTIME [facility] Last Admin: 11/26/18 20:56 Dose: 900 mg Documented by: MAMIE Levothyroxine Sodium (Synthroid) 200 mcg PO [email or web address]@[id number] [facility] Last Admin: 11/27/18 05:17 Dose: 200 mcg Documented by: RADHA Liothyronine Sodium (Cytomel) 5 mcg PO 0600 [facility] Last Admin: 11/27/18 05:17 Dose: 5 mcg Documented by: RADHA Losartan Potassium (Cozaar) 100 mg PO DAILY [facility] Meloxicam (Mobic) 15 mg PO 0800 [facility] Multivitamins (Tab-A-Willow) 1 tab PO DAILY [facility] Naloxone HCl (Narcan) 0.2 mg IV Q2MIN PRN PRN Reason: Opiate Reversal Oxycodone HCl (Percolone) 5 mg PO Q3HR PRN PRN Reason: Pain, Moderate (4-6) Last Admin: 11/27/18 05:14 Dose: 5 mg Documented by: Admin: 11/26/18 19:01 Dose: 5 mg Documented by: FATIMAH Oxycodone HCl (Percolone) 10 mg PO Q3HR PRN PRN Reason: Pain, Severe (7-10) Pantoprazole Sodium (Protonix) 20 mg PO BEDTIME [facility] Last Admin: 11/26/18 20:56 Dose: 20 mg Documented by: MAMIE Sodium Chloride (Normal Saline 0.9% Flush) 10 ml IV PRN PRN PRN Reason: Flush Sodium Chloride (Normal Saline 0.9% Flush) 10 ml IV BID [facility] Last Admin: 11/26/18 22:36 Dose: Not Given Documented by: MAMIE Discontinued Medications Liothyronine Sodium (Cytomel) 10 mcg PO 0600 [facility] Vital Signs Vital signs: Vital Signs - 8 hr 11/26/18 15:44 11/26/18 16:33 11/26/18 17:52 Temperature 99.2 F Pulse Rate 112 H 90 101 H Respiratory Rate 18 16 16 Blood Pressure 157/82 H Blood Pressure [Right Arm] 163/73 H 153/60 H Pulse Oximetry 99 94 93 11/26/18 18:02 Temperature Pulse Rate 98 H Respiratory Rate 16 Blood Pressure Blood Pressure [Right Arm] 159/57 H Pulse Oximetry 94 MDM - Extremity Injury (Lower) <SHELBY Jovel - Last Filed: 11/27/18 00:14> Differential Diagnosis Differential diagnosis: Likely other (Knee contusion, knee effusion, fracture of knee) Medical Records Attestation: I reviewed the patient's medical records. Lab Data Result diagrams: 11/27/18 05:00 Imaging Data XR Knee LT: Radiologist's impression: [address] [address] XRay Report Signed Patient: Juliana Romano CMR#: [id number] : 6Acct:[id number] Age/Sex: 73 / FDate of Service: 11/26/18 Loc: ED Accession Number: [id number] Procedure: XR knee LT 3V Ordering Provider: Daniel Boucher PROCEDURE: XR KNEE LT 1TO2V INDICATIONS: s/p knee replacement 2 days ago, fell on L knee today TECHNIQUE: 2 view(s) of the knee acquired. [facility] 12:21. FINDINGS: Bones: Patient is status post knee joint arthroplasty. Hardware components are in expected positions and unchanged compared to 11/24/2018. No periprosthetic lucency to suggest loosening or infection. Visualized bony structures are intact. Soft tissues: Overlying postoperative changes are noted. Increased joint effusion. Prepatellar soft tissue swelling. IMPRESSION: No acute osseous abnormality. Stable appearance of the left knee total arthroplasty. Dictated by: Marciano Shaffer M.D. on 11/26/2018 at 16:56 Approved by: Marciano Shaffer M.D. on 11/26/2018 at 16:57 [facility] Narrative Medical decision making narrative: This is a 73-year-old female, who had left knee replacement 2 days ago and discharged to home today prior brought right back to emergency room when she arrived home and sustained a fall and landed on her left knee. Physical exam showed intact pedal pulse, sensation and able to move toes. Left knee was significantly swollen and skin is taut and shiny. There was serosanguineous fluid collected under the surgical dressing. Patient had difficult time bending her knee. X-ray test was taken and indicated intact hardware components and unchanged after the knee replacement but increased joint effusion and pre patella soft tissue swelling. When patient was re-evaluated for pain and dressing, there was increased serosanguineous fluid collection which has been draining under the dressing. The surgical site and dressing was reinforced with additional 4 x 4 and Harish wrap over initial surgical dressing. Patient reports increasing pain at this time as well. Kitty Haile, specimen accessioner orthopedist, has been contacted for consult and she kindly accepted patient's care due to patient was unable to ambulate adequately when she arrived home. Transition order has been written as requested. Patient and her spouse was informed the above treatment plan and verbalized understanding. Discharge Plan Departure Patient Disposition: Admitted as Observation Clinical Impression: Effusion of knee joint, left Contusion of knee, left Qualifiers: Encounter type: initial encounter Qualified Code(s): S80.02XA - Contusion of left knee, initial encounter Discharge Date/Time: 11/26/18 18:37 Referrals: Nigel Hughes MD [Primary Care Provider] - Admit Date/Time: 11/26/18 18:26 Admit Provider: Marly Haile
--- NOTE | 2018-11-26 18:46 | PC.ADMIT ---
[address] Admission Note: The patient,Juliana Romano,73 y/o, was given written information regarding hospital policies, unit procedures and contact persons. Patient's smoking status: Never smoker. Vital Signs - 8 hr 11/26/18 15:44 11/26/18 16:33 11/26/18 17:52 Temperature 99.2 F Pulse Rate 112 H 90 101 H Respiratory Rate 18 16 16 Blood Pressure 157/82 H Blood Pressure [Right Arm] 163/73 H 153/60 H Pulse Oximetry 99 94 93 11/26/18 18:02 Temperature Pulse Rate 98 H Respiratory Rate 16 Blood Pressure Blood Pressure [Right Arm] 159/57 H Pulse Oximetry 94 Patient up from ED via stretcher. Needing 4 assist with slider board. Patient A&O, calm and cooperative. Aqua cell drsg has large amount of blood in it. Trying to get ahold of to see if the drsg needs to be changed. Patient c/o 07/21 pain, awaiting for pain meds to be verified by pharmacy.
[2018-11-26] MEDS: PANTOPRAZOLE 20 MG TABLET PO (20:56)
[2018-11-26] MEDS: GABAPENTIN 300 MG CAPSULE 900 MG PO (20:56)
[2018-11-27 03:27] VITALS: BP 146/54; PULSE 101; RESP 16; TEMP 37.3; O2SAT 93
[2018-11-27] MEDS: OXYCODONE IR 5 MG TABLET PO ×3 (05:14→18:48)
[2018-11-27] MEDS: LIOTHYRONINE 5 MCG TABLET PO (05:17)
[2018-11-27] MEDS: LEVOTHYROXINE 100 MCG TABLET 200 MCG PO (05:17)
[2018-11-27 05:38] LABS: Add Manual Diff / Slide Review NO; Basophils Absolute Auto 100 /uL (0-100); Basophils Percent Auto 1.1 % (0-2); Eosinophils Absolute Auto 300 /uL (0-450); Eosinophils Percent Auto 2.8 % (2-4); Hematocrit 30.3 % (36-46); Hemoglobin 9.8 g/dL (12.0-16.0); Lymphocytes Absolute Auto 1900 /uL (1100-4500); Lymphocytes Percent Auto 20.9 % (25-40); Mean Corpuscular HGB Conc 32.5 % (30-36); Mean Corpuscular Hemoglobin 27.8 PG (26-34); Mean Corpuscular Volume 85.5 fL (80-100); Monocytes Absolute Auto 1000 /uL (0-900); Monocytes Percent Auto 10.5 % (3-14); Neutrophils Absolute Auto 6000 /uL (1500-7000); Neutrophils Percent Auto 64.7 % (50-75); Platelet Count 203 X10^3/uL (150-400); Red Blood Cell Count 3.54 X10^6/uL (4.0-5.2); Red Cell Distribution Width 15.1 % (11.6-14.8); White Blood Cell Count 9.3 X10^3/uL (4.5-11.0)
--- NOTE | 2018-11-27 06:54 | PC.NURSE ---
Pt left knee with dark red blood. Saturated 3inch area of gauze x2 overnight. Aquacel dressing in place, saturated and oozing out left lateral side. Plan for MD to change dressing this AM. Pt LLE CMS intact. Reports pain tolerable at rest. Increased to 4/10 with turns and use of bedpan. Admin oxycodone x1 with relief per pt. Order for no IV access ok while inpt at this time. Reassess need for PIV.
[2018-11-27 07:50] VITALS: BP 154/75; PULSE 91; RESP 17; TEMP 37.1; O2SAT 95
[2018-11-27] MEDS: MELOXICAM 7.5 MG TABLET 15 MG PO (09:40)
[2018-11-27] MEDS: ACETAMINOPHEN 325 MG TABLET 975 MG PO ×3 (09:40→20:30)
[2018-11-27] MEDS: DOCUSATE 100 MG CAPSULE PO ×2 (09:41→20:31)
[2018-11-27] MEDS: ASPIRIN EC 81 MG TABLET PO ×2 (09:41→20:31)
[2018-11-27] MEDS: FUROSEMIDE 20 MG TABLET PO (09:41)
[2018-11-27] MEDS: GABAPENTIN 600 MG TABLET PO (09:41)
[2018-11-27] MEDS: LOSARTAN 50 MG TABLET 100 MG PO (09:41)
[2018-11-27] MEDS: MULTIVITAMIN 1 TABLET 1 TAB PO (09:41)
[2018-11-27 10:40] VITALS: BP 127/78; PULSE 99; RESP 16; TEMP 36.4; O2SAT 96
--- NOTE | 2018-11-27 11:43 | P.PN_ITS ---
Subjective Subjective Date Patient Seen: 11/27/18 Time Patient Seen: 11:43 Interval history: Juliana is POD #3 s/p TKA with Dr. Crum. She was brought in by EMS yesterday after patient injured her left knee. Patient states when she arrived home from the hospital her left leg buckled and could not be straightened out which caused her to fall onto her left knee. She has 5 steps to get it in to her house which she was unable to ambulate. Patient had physical therapy twice before discharge to home which patient did well according to patient. Patient's left knee had been oozing blood after the fall. Dr. Haile came to see patient this morning and changed her dressing at 7 am, and applied steri-strips. Dr. Haile also reviewed x-rays demonstrating no fractures or quad abnormalities. Patient reports her pain is still better than it was since before surgery. She is looking forward to working with PT today. Exam Vital Signs (past 8 hours): - 11/27/18 07:50 11/27/18 10:40 Temperature 98.8 F 97.6 F Pulse Rate 91 H 99 H Respiratory Rate 17 16 Blood Pressure 154/75 H 127/78 Pulse Oximetry 95 96 Oxygen Delivery Method Room Air,CPAP Oxygen Flow Rate 0 Narrative Exam Narrative: Patient lying in bed in no acute distress. Alert and oriented x3. Calves are soft, compressible, nontender bilaterally. Pulses are symmetrical. Dressing checked at 11:00 a.m. and is CDI. She is able to actively dorsiflex and plantar flex. She is able to flex and extend knee. Objective Labs Result Diagrams: 11/27/18 05:00 Labs: Laboratory Results - last 24 hr 11/27/18 05:00 WBC 9.3 RBC 3.54 L Hgb 9.8 L Hct 30.3 L MCV 85.5 MCH 27.8 MCHC 32.5 RDW 15.1 H Plt Count 203 Neut % (Auto) 64.7 Lymph % (Auto) 20.9 L [place] % (Auto) 10.5 Eos % (Auto) 2.8 Baso % (Auto) 1.1 Neut # (Auto) 6000 Lymph # (Auto) 1900 [place] # (Auto) 1000 H Eos # (Auto) 300 Baso # (Auto) 100 Assessment & Plan Post-op Assessment and plan (1) S/P total knee arthroplasty: Assessment and Plan narrative: Patient will work with physical therapy today. She can be full weight-bearing. Continue current pain control. Will continue to check on dressing. If she is safely mobilizing and ready to discharge home tonight, she can discharge home. If she needs more time to mobilize safely with adequate pain control she may possibly discharge home tomorrow. Quality VTE Deep Vein Thrombosis/Pulmonary Embolism Present on Admission: No
--- NOTE | 2018-11-27 11:48 | PT.IIE ---
Surgical History (Last Reviewed 11/26/18 @ 23:47 by SHELBY Jovel) History of 3 sections (Acute) History of knee replacement (Acute) History of lumbar fusion (Acute ~2014) History of lumbar laminectomy (Acute) Hx of bariatric surgery (Acute ~01/2014) Hx of cholecystectomy (Acute ~09/2006) Hx of lumbar discectomy (Acute ~2012) Hx of tubal ligation (Acute) S/P hernia surgery (Acute) Medical History (Last Reviewed 11/26/18 @ 23:47 by SHELBY Jovel) Ankle fracture, left (Acute ~2007) Arthritis (Acute) Bilateral knee pain (Acute) Eczema (Acute) Edema (Acute) Fibromyalgia (Acute) Fragile skin (Acute) Hearing impaired (Acute) HTN (hypertension) (Acute) Hypothyroid (Acute) Osteoarthritis (Acute) Sleep apnea (Acute) Physical Therapy Inpatient Evaluation/Re-Eval M1 PT/OT-IP Prior Functional Status Start: 11/27/18 08:47 Freq: NEEDED Status: Active Protocol: Document 11/27/18 11:17 AW (Rec: 11/27/18 11:48 AW [id number]) Medical Review Prior Functional Status Medical History Reviewed Yes Diet/Fluid Consistency Regular Communication Able to make needs known Mobility and Gait Pt was independent with all functional mobility, requiring no AD Activities of Daily Living and IADL's Independent Social History Household Members spouse Living Arrangements House Number of Floors (Floors) One Floor Number of Stairs To Enter/Railing? 5 LISA with narrow bilateral rails (can contact both at same time). Pt reports her spouse is building a ramp today for the back of the house. She states they will be able to drive to the ramp landing, exit the car onto the landing and use the ramp to bypass 5 steps in the back of the house. There are an additional two stairs after that ramp. Will need to check with pt later to verify if a second ramp will be built for those stairs. Home Environment Standard Height Toilet Home Equipment Front Wheel Walker,Four Wheel Walker,Quad Cane,Raised Toilet Seat w/Armrests,Hand Held Shower,Grab Bars In Shower Employment Status Retired Additional Social History Comment Additionally, pt has lift chair at home, bed rails near HOB, and Targovaxing poles. M2 PT-IP Current Condition Start: 11/27/18 08:47 Freq: NEEDED Status: Active Protocol: Document 11/27/18 11:17 AW (Rec: 11/27/18 11:48 AW [id number]) Physical Therapy Current Condition Current Condition Evaluation Date 11/27/18 Treatment Diagnosis s/p L TKA (11/24/18), fall on 11/26/18, impaired transfers and gait Weight Bearing Status Weight Bearing Status Weight Bear as Tolerated M3 PT-IP Subjective Start: 11/27/18 08:47 Freq: NEEDED Status: Active Protocol: Document 11/27/18 11:17 AW (Rec: 11/27/18 11:48 AW [id number]) Subjective Physical Therapy Visit Type Type Initial Evaluation Visit Start Time 10:03 Visit Stop Time 10:32 Total Visit Minutes 29 Notes Pt was discharged on 11/26/18, was unable to make it up 5 steps at her home, fell on her left knee, and was readmitted same day. Number of PAPER FINISHER Visits 0 Physical Therapy Visit Comments Patient Comments Pt would like to use the toilet Patient Goals Pt hopes to return home with spouse and family assist Therapy Pain Assessment Pain When Pain Assessed During Mobility Pain Present Pain Present Pain Reported Location Left Knee Intensity 3 Scale Used 2/10 at rest; 3/10 with mobility Pain Management Techniques Apply Cold,Re-positioning, Timing of Activity with Medications M4 PT-IP Mobility and Gait Start: 11/27/18 08:47 Freq: NEEDED Status: Active Protocol: Document 11/27/18 11:17 AW (Rec: 11/27/18 11:48 AW [id number]) PT-Bed Mobility Assessment Supine to Sit Supine to Sit Contact Guard Assistance,1 Person Assistance Sit to Supine Sit to Supine Bedrails Scooting Scooting to Edge of Bed Standby Assistance PT-Transfer Assessment Sit to and From Stand Sit to and from Stand Moderate Assistance,Maximum Assistance,1 Person Assistance ,Use of Upper Extremities Equipment Transfer Assistive Device Gait Belt,Front Wheeled Walker Transfers Transfer Destination Chair Transfer Technique pt ambulated with FWW Transfer Ability Level of Assist Contact Guard Assistance, Minimal Assistance Comments Mobility Comments Pt required min assist and use of bed rails to transfer supine to sit on the right side. She notes she has bed rails near HOB at home. First attempt to stand to walker required max assist but pt was unable to stand. Second attempt with use of bed can required mod assist. Third attempt without bed cane required max assist but she was able to stand. Pt transferred to toilet with min assist to rotate her hips toward the seat. She transferred to chair with CGA but poor control of descent. Gait Assessment Gait Gait Assistance Required: Contact Guard Assist Distance (Feet) 20 Able to Maintain Weight Bearing Status Yes During Gait Assistive Devices Assistive Device Gait Belt,Front Wheeled Walker Orthotic/Prosthetic Devices or Brace: No Gait Deviations General Gait Pattern Antalgic,Decreased Stride Length,Decreased Feet Clearance,Flexed Trunk Factors Limiting Gait Function Factors Limiting Gait Function Decreased Strength,Pain,Poor Balance Comments Gait Comments Pt ambulated slowly and with unsteadiness using FWW CGA. No signs of respiratory distress . Pain increased from 2/10 to 3/10 with short bout ambulation PT-Balance Assessment Sitting Balance and Reactions Static Sitting Balance Ability Good Dynamic Sitting Balance Ability Good Standing Balance and Reactions Static Standing Balance Ability Good Dynamic Standing Balance Ability Fair Device Used FWW M5 PT-IP Objective Assessments Start: 11/27/18 08:47 Freq: NEEDED Status: Active Protocol: Document 11/27/18 11:17 AW (Rec: 11/27/18 11:48 AW [id number]) Orientation Orientation/Cognition Level of Alertness Alert Orientation Name,Day of Week,Place, Situation Language Function Ability No Deficits Noted Safety Awareness Understands Safety Issues Memory Description No Deficits Noted Gross Range of Motion Upper Extremity ROM Assessment Within Functional Limits Lower Extremity ROM Assessment Left Impaired Strength Upper Extremity Strength Assessment Within Functional Limits Lower Extremity Strength Assessment Left Impaired Coordination Assessment Gross Coordination Gross Coordination WNL Sensation Assessment Sensation Gross Sensation WNL M7 PT-IP Assessment and Plan Start: 11/27/18 08:47 Freq: NEEDED Status: Active Protocol: Document 11/27/18 11:17 AW (Rec: 11/27/18 11:48 AW [id number]) PT Summary Assessment and Plan Potential Rehabilitation Potential Good Status of Condition at Evaluation Evolving Summary Impairments Pain,ROM,Strength,Balance,Bed Mobility,Transfers,Gait, Activity Tolerance Assessment Summary Pt is a 73 yo woman seen for PT eval on the day after re- admission. She was originally seen on 11/24 after left TKA. She discharged to home after clearing stairs with PT, but felt her left knee give out when she attempted to climb stairs to enter her home. She was using bilateral rails with her assisting with a gait belt from behind. She led with her RLE, but her LLE was not able to clear the first step. Her helped lift her leg up the first step and called their son to provide further assistance. She required max assist to get up five stairs and then felt her legs give out on her, falling over the threshhold. EMT was called and she was brought to the ED. PLOF: Pt was independent with all mobility using no AD except occasional use of trekking poles. She was independent with all ADL's. CLOF: Pt required up to max assist for sit to stand transfer depending on surface and equipment. Level of assist was reduced from max to mod with use of bed cane for standing from the bed and with heavy reliance on grab bars when standing from the toilet. She was able to ambulate 10 feet x 2 with FWW CGA and no signs of distress. Pt reports her is building a ramp today for access to the home, but there may still be two stairs to clear after the ramp . PT recommends discharge to home with spouse/family assist and home health vs SNF rehab. Will continue to assess and follow up on need to clear stairs for home entry. Goals Bed Mobility Goal Standby Assistance Transfer Goal Standby Assistance Gait Goal Standby Assistance Gait Distance 75 Other Goals up/down 2 stairs using bilateral rails CGA (unless entry is completely ramped. will follow). Days to Meet Goals 10 Frequency of Treatment Frequency Of Treatment Twice a Day Treatment Plan Physical Therapy Treatment Plan Bed Mobility Training,Transfer Training,Gait Training, Therapeutic Exercise,Balance Retraining,Post Op Education, Discharge Planning,Hot or Cold Pack,Neuromuscular Re-ed, Coordination Retraining,Manual Therapy Other Recommendations and Next Treatment bed mobility, progress Focus ambulation distance, follow up on need to clear stairs ( status of ramp) Recommendations To Nursing Amount of Assist Needed 1 Person Assist,2 Person Assist Discharge Recommendations PT Discharge Recommendations Home with Assistance,Home Health,SNF Rehab Other Discharge Recommendations Home with HH vs SNF rehab depending on independence with transfers and whether or not needs to clear stairs
--- NOTE | 2018-11-27 15:35 | CM.DANOTE ---
Patient is a 73 year old female who was RE-admitted on 11/26/18 after d/c home after TKA and readmitted after fall. Pt has [facility] and [employer] for insurance and her PCP is Dr. Correa. EMR was reviewed. Per UR, pt's admit, discharge, then readmit able to be rolled into one visit and Inpt as of 11/26/18. SW met bedside with pt and explained role and pt confirmed that she discharged home yesterday after TKA with spouse and outpt PT set up but pt got home after d/c and attempted stairs at home and her legs buckled and pt fell with abrasion and bleeding. Pt somewhat tearful and she was hopeful to be home and ambulating on her own and healing. SW discussed possible option of SNF rehab stay and explained SNF and MCR coverage and provided the SNF Choice List. Pt hopeful to still go home but agreeable that she needs to work with therapy team her to determine if she will be safe for home and she is very concerned with her strong leg buckling. Spouse is currently at home working on ramp to get in the home and will be bedside this evening or in the morning likely. Plan: SW to follow closely after PT/OT this evening and further discussion with pt tomorrow to determine if SNF referral needed. CARON Garrido Discharge Planning/Care Management Advanced directive, confirm from FAMILY Start: 11/26/18 18:45 Freq: Q24H Status: Active Protocol: Document 11/26/18 18:45 AGW (Rec: 11/26/18 21:38 AGW [id number]) Advance Directive, confirm on record Time 20:00 Person contacted sheree Copy received No CM Discharge Assessment Start: 11/27/18 15:33 Freq: Status: Active Protocol: Document 11/27/18 15:33 BF (Rec: 11/27/18 15:35 BF [id number]) Discharge Planning Assessment Assigned Manager Activities CARON Betancur DPOA/Assigned Designee Name Spouse Advance Directives? Yes Advance Directives on File No History Provided By Patient,Medical Record Has Patient been admitted in last 30 Yes days? Comment Just discharged home yesterday before readmit same day after fall Prior Living Arrangements House Household Members spouse Type of transporation used prior to Relies on Others admit Independent with ADL's Yes Is patient alert and oriented? Yes Needs Assistance With Home Chores / Shopping Caregiver for Another No Community Services used prior to Physical Therapy admission: Patient/Family Preference Intermediate Facility Barriers to Discharge No Discharge Plan Intermediate Facility Transportation Arrangement Spouse can likely provide transport if home, otherwise facility van if SNF Medicare Choice List Provided Yes Has Agency SNF been contacted No Whiteboard Updated in Patient Room with Yes name and ext. # of Manager Activities Review Status In Process Please Provide Date Initial DC 11/27/18 Assessment Was Performed Next Review Type Continued Stay Review
[2018-11-27 15:45] VITALS: BP 138/58; PULSE 79; RESP 18; TEMP 37; O2SAT 95
--- NOTE | 2018-11-27 16:31 | PT.IPTN ---
Current Diagnoses Presence of unspecified artificial knee joint (11/26/18) Physical Therapy Treatment Note M2 PT-IP Current Condition Start: 11/27/18 08:47 Freq: NEEDED Status: Active Protocol: Document 11/27/18 11:17 AW (Rec: 11/27/18 11:48 AW [id number]) Physical Therapy Current Condition Current Condition Evaluation Date 11/27/18 Treatment Diagnosis s/p L TKA (11/24/18), fall on 11/26/18, impaired transfers and gait Weight Bearing Status Weight Bearing Status Weight Bear as Tolerated M3 PT-IP Subjective Start: 11/27/18 08:47 Freq: NEEDED Status: Active Protocol: Document 11/27/18 16:18 AW (Rec: 11/27/18 16:31 AW [id number]) Subjective Physical Therapy Visit Type Type Treatment Note Visit Start Time 15:51 Visit Stop Time 16:15 Total Visit Minutes 24 Number of COOLER MAN Visits 0 Physical Therapy Visit Comments Patient Comments Pt feeling upset about possible need for SNF but willing to work with PT Therapy Pain Assessment Pain When Pain Assessed During Mobility Pain Present Pain Present Pain Reported Location Left Knee Intensity 2 Scale Used 2/10 at rest and with mobility Pain Management Techniques Apply Cold,Re-positioning, Timing of Activity with Medications M4 PT-IP Mobility and Gait Start: 11/27/18 08:47 Freq: NEEDED Status: Active Protocol: Document 11/27/18 16:18 AW (Rec: 11/27/18 16:31 AW [id number]) PT-Bed Mobility Assessment Supine to Sit Supine to Sit Standby Assistance,Bedrails Scooting Scooting to Edge of Bed Standby Assistance PT-Transfer Assessment Sit to and From Stand Sit to and from Stand Minimal Assistance,Moderate Assistance,1 Person Assistance ,Use of Upper Extremities Equipment Transfer Assistive Device Gait Belt,Front Wheeled Walker Transfers Transfer Destination Bed,Chair,Toilet Transfer Technique pt ambulated with FWW Transfer Ability Level of Assist Contact Guard Assistance,Use of Upper Extremities Comments Mobility Comments Pt required decreased level of assist for sit to stand - mod A from bed at lowest setting and min A from bed raised ~3 inches. She states her bed at home is approx same height as second attempt. Transfer off the toilet required min A and heavy reliance on vertical and horizontal grab bars. Gait Assessment Gait Gait Assistance Required: Contact Guard Assist Distance (Feet) 120 Able to Maintain Weight Bearing Status Yes During Gait Assistive Devices Assistive Device Gait Belt,Front Wheeled Walker Orthotic/Prosthetic Devices or Brace: No Gait Deviations General Gait Pattern Antalgic,Decreased Stride Length,Decreased Feet Clearance,Flexed Trunk Factors Limiting Gait Function Factors Limiting Gait Function Decreased Strength,Pain,Poor Balance Comments Gait Comments Pt more confident with ambulation this session with use of FWW CGA. She reported mild lightheadedness after ~ 100 feet which resolved before return to chair. Stair Climbing Assessment Comments Stair Climbing Comments Pt unsure about status of ramp project at home. M5 PT-IP Objective Assessments Start: 11/27/18 08:47 Freq: NEEDED Status: Active Protocol: Document 11/27/18 11:17 AW (Rec: 11/27/18 11:48 AW [id number]) Orientation Orientation/Cognition Level of Alertness Alert Orientation Name,Day of Week,Place, Situation Language Function Ability No Deficits Noted Safety Awareness Understands Safety Issues Memory Description No Deficits Noted Gross Range of Motion Upper Extremity ROM Assessment Within Functional Limits Lower Extremity ROM Assessment Left Impaired Strength Upper Extremity Strength Assessment Within Functional Limits Lower Extremity Strength Assessment Left Impaired Coordination Assessment Gross Coordination Gross Coordination WNL Sensation Assessment Sensation Gross Sensation WNL M6 PT-IP Treatment Start: 11/27/18 08:47 Freq: NEEDED Status: Active Protocol: Document 11/27/18 16:18 AW (Rec: 11/27/18 16:31 AW [id number]) Physical Therapy Treatment Other Treatments Other Treatment Performed Ankle pumps, long arc quads, seated marching, seated hip abduction/adduction with manual resistance. M7 PT-IP Assessment and Plan Start: 11/27/18 08:47 Freq: NEEDED Status: Active Protocol: Document 11/27/18 16:18 AW (Rec: 11/27/18 16:31 AW [id number]) PT Summary Assessment and Plan Summary Progress Towards Goals Slow Progress due to Activity Tolerance Assessment Summary Pt required decreased overall assist this afternoon, but continues to complain of RLE weakness. She has step-through gait pattern and improved activity tolerance. Will continue to assess for home with home health vs SNF rehab. Goals Bed Mobility Goal Standby Assistance Transfer Goal Standby Assistance Gait Goal Standby Assistance Gait Distance 200 Other Goals up/down 2 stairs using bilateral rails CGA (unless entry is completely ramped. will follow). Days to Meet Goals 10 Frequency of Treatment Frequency Of Treatment Twice a Day Treatment Plan Physical Therapy Treatment Plan Bed Mobility Training,Transfer Training,Gait Training, Therapeutic Exercise,Balance Retraining,Post Op Education, Discharge Planning,Hot or Cold Pack,Neuromuscular Re-ed, Coordination Retraining,Manual Therapy Other Recommendations and Next Treatment progress ambulation distance, Focus follow up on need to clear stairs (status of ramp), ther ex, trial stairs if appropriate Recommendations To Nursing Amount of Assist Needed 1 Person Assist Discharge Recommendations PT Discharge Recommendations Home with Assistance,Home Health,SNF Rehab Other Discharge Recommendations Home with HH vs SNF rehab depending on independence with transfers and whether or not needs to clear stairs
[2018-11-27] MEDS: GABAPENTIN 300 MG CAPSULE 900 MG PO (20:31)
[2018-11-27] MEDS: PANTOPRAZOLE 20 MG TABLET PO (20:32)
--- NOTE | 2018-11-27 21:42 | PC.NURSE ---
Patient up in chair most of the shift. Ambulates well to and from bathroom and up with PT w/SBA and FWW. Pain controlled well with percolone. Moderate drainage on new drsg, which was marked this shift for monitoring. Patient has been A&O, calm and cooperative.
[2018-11-28] MEDS: OXYCODONE IR 5 MG TABLET PO ×2 (00:56→16:06)
[2018-11-28 01:07] VITALS: BP 136/55; PULSE 85; RESP 18; TEMP 36.8; O2SAT 93
[2018-11-28] MEDS: OXYCODONE IR 10 MG TABLET PO ×3 (05:41→20:16)
[2018-11-28] MEDS: LEVOTHYROXINE 100 MCG TABLET 200 MCG PO (05:42)
[2018-11-28] MEDS: LIOTHYRONINE 5 MCG TABLET PO (05:42)
[2018-11-28 05:45] VITALS: BP 147/59; PULSE 78; RESP 16; TEMP 36.7; O2SAT 94
[2018-11-28 07:50] VITALS: BP 150/55; PULSE 83; RESP 17; TEMP 37.1; O2SAT 94
--- NOTE | 2018-11-28 09:42 | P.PN_ITS ---
Subjective Subjective Date Patient Seen: 11/28/18 Time Patient Seen: 09:42 Interval history: The patient reports that she is having some constipation. She gives me the history of falling directly on her surgical knee after discharge requiring her immediate readmission. She notes she is still having some bleeding from the operative site. Exam Vital Signs (past 8 hours): - 11/28/18 05:45 11/28/18 07:50 Temperature 98.1 F 98.8 F Pulse Rate 78 83 Respiratory Rate 16 17 Blood Pressure 147/59 H 150/55 H Pulse Oximetry 94 94 Oxygen Delivery Method Room Air,CPAP Oxygen Flow Rate 0 Narrative Exam Narrative: The patient is able to hold her left leg extended against gravity quite easily in the seated position. There is moderate bloody drainage on the bandage but no active bleeding from the wound when inspected. There is no erythema. There is blood clot in the wound beginning to seal. Objective Labs Result Diagrams: 11/27/18 05:00 Assessment & Plan Post-op Postoperative Procedures: Left total knee replacement November 24, 2018 Postoperative day: 4 Postoperative status: doing well, anemia and other (Fall at home with wound drainage.) Postoperative status narrative: The patient is 4 days out from a total knee replacement. She did extremely well with therapy in the hospital and was discharged on postoperative day 2. Unfortunately she had a fall at home landing directly on the operative knee. Since that fall she has had increased drainage from the wound. There are no current signs of infection at the wound and it appears that her quadriceps repair is intact. Postoperative plan: routine post-op care and ambulate Postoperative plan narrative: We will continue physical therapy for ambulation and fall prevention. Depending on her progress with therapy she may be able to discharge home however she may require jail. We will monitor the wound for the next 24 hours. If the drainage resolves with fresh Steri-Strips and a dry sterile dressing she may be discharged. If not, I will take her to the operating room for drainage and washout on Saturday. Time Spent With Patient Time with patient: less than 15 minutes Quality VTE Deep Vein Thrombosis/Pulmonary Embolism Present on Admission: No
[2018-11-28] MEDS: LOSARTAN 50 MG TABLET 100 MG PO (11:02)
[2018-11-28] MEDS: FUROSEMIDE 20 MG TABLET PO (11:03)
[2018-11-28] MEDS: MELOXICAM 7.5 MG TABLET 15 MG PO (11:03)
[2018-11-28] MEDS: ASPIRIN EC 81 MG TABLET PO ×2 (11:03→20:19)
[2018-11-28] MEDS: DOCUSATE 100 MG CAPSULE PO ×2 (11:04→20:19)
[2018-11-28] MEDS: GABAPENTIN 600 MG TABLET PO (11:04)
[2018-11-28] MEDS: MULTIVITAMIN 1 TABLET 1 TAB PO (11:04)
[2018-11-28] MEDS: ACETAMINOPHEN 325 MG TABLET 975 MG PO ×3 (11:04→20:17)
--- NOTE | 2018-11-28 11:40 | PT-IP ANOTE ---
Pt refused due to pain level. Pt reported pain of 4/10 after meds. Pt requested to wait to be seen after lunch.
--- NOTE | 2018-11-28 12:43 | PC.NURSE ---
Day Shift During auscultation, irregular HR found. Pt denies having this in the past. Notified PA, order for EKG, per PA looks like PAC, no further monitoring ordered. Pt up with 1psn assist to BR. Had BM, not complete, wants to have suppository however sleeping as received pain medicaiton. will recheck later when pt awake.
[2018-11-28 13:09] VITALS: BP 122/74; PULSE 86; RESP 16; TEMP 37; O2SAT 95
[2018-11-28 16:02] VITALS: BP 138/69; PULSE 89; RESP 17; TEMP 36.7; O2SAT 93
--- NOTE | 2018-11-28 16:14 | PT.IPTN ---
Current Diagnoses Presence of unspecified artificial knee joint (11/26/18) Physical Therapy Treatment Note M2 PT-IP Current Condition Start: 11/27/18 08:47 Freq: NEEDED Status: Active Protocol: Document 11/27/18 11:17 AW (Rec: 11/27/18 11:48 AW [id number]) Physical Therapy Current Condition Current Condition Evaluation Date 11/27/18 Treatment Diagnosis s/p L TKA (11/24/18), fall on 11/26/18, impaired transfers and gait Weight Bearing Status Weight Bearing Status Weight Bear as Tolerated M3 PT-IP Subjective Start: 11/27/18 08:47 Freq: NEEDED Status: Active Protocol: Document 11/28/18 15:48 SP (Rec: 11/28/18 16:09 SP [id number]) Subjective Physical Therapy Visit Type Type Treatment Note Visit Start Time 14:48 Visit Stop Time 15:48 Total Visit Minutes 60 Physical Therapy Visit Comments Patient Comments Pt was willing to work with PT this afternoon. I am feeling alot better than this am. Patient Goals Go to the bathroom and go for a walk. Therapy Pain Assessment Pain When Pain Assessed At Rest Pain Present Pain Present Pain Reported Location Left Knee Intensity 3 Scale Used 3/10 at rest, 3/10 during mobility/exercises Pain Management Techniques Re-positioning,Timing of Activity with Medications M4 PT-IP Mobility and Gait Start: 11/27/18 08:47 Freq: NEEDED Status: Active Protocol: Document 11/28/18 15:48 SP (Rec: 11/28/18 16:09 SP [id number]) PT-Bed Mobility Assessment Rolling Type of Rolling Roll to Right Level of Assist Standby Assistance Supine to Sit Supine to Sit Standby Assistance,Bedrails Sit to Supine Sit to Supine Minimal Assistance,1 Person Assistance,Bedrails Scooting Scooting to Edge of Bed Standby Assistance Scooting Up and Down in Bed Minimal Assistance PT-Transfer Assessment Sit to and From Stand Sit to and from Stand Minimal Assistance,Moderate Assistance,1 Person Assistance ,Use of Upper Extremities Equipment Transfer Assistive Device Gait Belt,Front Wheeled Walker Orthotic/Prosthetic Devices or Brace: No Transfers Transfer Destination Bed,Toilet Transfer Technique pt ambulated with FWW Transfer Ability Level of Assist Minimal Assistance,1 Person Assistance Comments Mobility Comments Pt was able to complete supine >sit and scoot EOB SBA, Min A sit>stand from EOB and toilet (occasional cues for trunk flexion), stand> sit CGA, sit> supine min A for LLE support into bed, able to reposition herself once in bed. no LOB or devations during transfers. Gait Assessment Gait Gait Assistance Required: Standby Assistance,Contact Guard Assist Distance (Feet) 280 Able to Maintain Weight Bearing Status Yes During Gait Assistive Devices Assistive Device Gait Belt,Front Wheeled Walker Orthotic/Prosthetic Devices or Brace: No Gait Deviations General Gait Pattern Antalgic,Decreased Stride Length,Decreased Feet Clearance,Flexed Trunk Factors Limiting Gait Function Factors Limiting Gait Function Decreased Strength,Pain,Poor Balance Comments Gait Comments Pt confident with ambulation this afternoon while using FWW SBA. Pt reported little lightheadedness after short walk bed to bathroom, went away after use of bathroom.Pt report no increase in pain post tx 04/20. Stair Climbing Assessment Comments Stair Climbing Comments completed a 2 section ramp at home for safety entering house. He has a picture on his phone to view. M5 PT-IP Objective Assessments Start: 11/27/18 08:47 Freq: NEEDED Status: Active Protocol: Document 11/27/18 11:17 AW (Rec: 11/27/18 11:48 AW [id number]) Orientation Orientation/Cognition Level of Alertness Alert Orientation Name,Day of Week,Place, Situation Language Function Ability No Deficits Noted Safety Awareness Understands Safety Issues Memory Description No Deficits Noted Gross Range of Motion Upper Extremity ROM Assessment Within Functional Limits Lower Extremity ROM Assessment Left Impaired Strength Upper Extremity Strength Assessment Within Functional Limits Lower Extremity Strength Assessment Left Impaired Coordination Assessment Gross Coordination Gross Coordination WNL Sensation Assessment Sensation Gross Sensation WNL M6 PT-IP Treatment Start: 11/27/18 08:47 Freq: NEEDED Status: Active Protocol: Document 11/28/18 15:48 SP (Rec: 11/28/18 16:09 SP [id number]) Physical Therapy Treatment Exercises Exercises Ankle Pumps,Quad Sets,Heel Slides,Straight Leg Raises, Supine Hip Abduction,Seated Knee Flexion/Extension Knee ROM Measurement L knee 60* flexion AAROM with self use of gait belt. M7 PT-IP Assessment and Plan Start: 11/27/18 08:47 Freq: NEEDED Status: Active Protocol: Document 11/28/18 15:48 SP (Rec: 11/28/18 16:09 SP [id number]) PT Summary Assessment and Plan Potential Rehabilitation Potential Good Status of Condition at Evaluation Evolving Summary Impairments Pain,ROM,Strength,Balance,Bed Mobility,Transfers,Gait, Activity Tolerance Progress Towards Goals Slow Progress due to Activity Tolerance Assessment Summary Pt required decreased overall assist this afternoon, but continues to complain of RLE weakness. She has step-through gait pattern and improved activity tolerance. Will continue to assess for home with home health vs SNF rehab. Goals Bed Mobility Goal Standby Assistance Transfer Goal Standby Assistance Gait Goal Standby Assistance Gait Distance 200 Other Goals up/down 2 stairs using bilateral rails CGA (unless entry is completely ramped. will follow). Days to Meet Goals 10 Frequency of Treatment Frequency Of Treatment Twice a Day Treatment Plan Physical Therapy Treatment Plan Bed Mobility Training,Transfer Training,Gait Training, Therapeutic Exercise,Balance Retraining,Post Op Education, Discharge Planning,Hot or Cold Pack,Neuromuscular Re-ed, Coordination Retraining,Manual Therapy Other Recommendations and Next Treatment progress ambulation distance, Focus follow up on need to clear stairs, a 2 section ramp has been installed with non skid surface ( has a picture on his phone), ther ex, trial stairs if appropriate. Recommendations To Nursing Amount of Assist Needed 1 Person Assist Discharge Recommendations PT Discharge Recommendations Home with Assistance,Home Health,SNF Rehab Other Discharge Recommendations Home with HH vs SNF rehab depending on independence with transfers and whether or not needs to clear stairs
[2018-11-28] MEDS: PANTOPRAZOLE 20 MG TABLET PO (20:17)
[2018-11-28] MEDS: GABAPENTIN 300 MG CAPSULE 900 MG PO (20:18)
[2018-11-28 20:54] VITALS: BP 152/72; PULSE 77; RESP 18; TEMP 36.7; O2SAT 96
[2018-11-29] VITALS: BP 136/56; PULSE 60; RESP 16; TEMP 36.4; O2SAT 93
[2018-11-29 03:45] VITALS: BP 161/89; PULSE 76; RESP 20; TEMP 36.6; O2SAT 95
[2018-11-29] MEDS: OXYCODONE IR 10 MG TABLET PO ×2 (03:59→21:26)
--- NOTE | 2018-11-29 03:59 | PC.NURSE ---
Assumed care of pt at 1500 on 11/28/18. Pt ambulating in P.T. during bedside hand-off. Steady on feet. Drsg to knee with mod drainage. CMS+. Medicated per mar for post-op pain. Student nurse participating in pt care and administrations. All care performed by student has been under supervision of this display card writer.
[2018-11-29] MEDS: LEVOTHYROXINE 100 MCG TABLET 200 MCG PO (07:21)
[2018-11-29] MEDS: MELOXICAM 7.5 MG TABLET 15 MG PO (07:21)
[2018-11-29] MEDS: LIOTHYRONINE 5 MCG TABLET PO (07:21)
--- NOTE | 2018-11-29 08:46 | P.PN_ITS ---
Subjective Subjective Date Patient Seen: 11/29/18 Time Patient Seen: 08:46 Interval history: She is sore in the knee but comfortable. Exam Vital Signs (past 8 hours): - 11/29/18 03:45 Temperature 97.8 F Pulse Rate 76 Respiratory Rate 20 Blood Pressure 161/89 H Pulse Oximetry 95 Oxygen Delivery Method Room Air,CPAP Oxygen Flow Rate 0 Const Orientation: alert and oriented x3 Extrem Other: Soft calf, easily wiggles toes. Dressing has moderate drainage underneath the aqua debby but no leaking out. This was changed yesterday at 11:00 a.m. Objective Labs Result Diagrams: 11/27/18 05:00 Assessment & Plan Post-op Postoperative Postoperative status narrative: Plan is for observation for 1 more day. If this does not drain any further, plan to discharge home. If she has still ongoing drainage, Dr. Crum will return to the operating room with her tomorrow afternoon for a washout. Quality VTE Deep Vein Thrombosis/Pulmonary Embolism Present on Admission: No
[2018-11-29 09:07] VITALS: BP 156/65
[2018-11-29] MEDS: MULTIVITAMIN 1 TABLET 1 TAB PO (09:07)
[2018-11-29] MEDS: LOSARTAN 50 MG TABLET 100 MG PO (09:07)
[2018-11-29] MEDS: ASPIRIN EC 81 MG TABLET PO ×2 (09:07→21:27)
[2018-11-29] MEDS: FUROSEMIDE 20 MG TABLET PO (09:07)
[2018-11-29] MEDS: DOCUSATE 100 MG CAPSULE PO ×2 (09:07→21:27)
[2018-11-29] MEDS: GABAPENTIN 600 MG TABLET PO (09:07)
[2018-11-29] MEDS: ACETAMINOPHEN 325 MG TABLET 975 MG PO ×3 (09:08→21:27)
[2018-11-29 09:29] VITALS: BP 156/65; PULSE 88; RESP 19; TEMP 36.9; O2SAT 93
[2018-11-29] MEDS: OXYCODONE IR 5 MG TABLET PO ×2 (10:47→15:54)
--- NOTE | 2018-11-29 10:56 | CM.DPC ---
DCP Cont: Per MD, pt has continued to have some drainage from her knee and if continues then may need to go to surgery. Per PT, pt's drainage seems to have decreased and pt has been able to participate in therapy and currently recommending possible HH but likely not SNF. SW met bedside with pt and explained role again and pt confirms that her completed making the ramp to get into the house and that she feels she has made some progress with therapy. Pt confirms that she really does not want to go to SNF but would be agreeable with HH if needed. SW provided the HH Choice List and no preference so based on Vendor Calendar SW made new referral to [facility] to review in case HH needed. Plan: SW to follow for [facility] review and further PT/OT towards determining if pt can safely d/c home with spouse and HH vs outpt PT. If HH, F2F needed from . Gypsy Donohue, TEAM MANAGER
--- NOTE | 2018-11-29 11:19 | PT.IPTN ---
Current Diagnoses Presence of unspecified artificial knee joint (11/26/18) Physical Therapy Treatment Note M2 PT-IP Current Condition Start: 11/27/18 08:47 Freq: NEEDED Status: Active Protocol: Document 11/27/18 11:17 AW (Rec: 11/27/18 11:48 AW [id number]) Physical Therapy Current Condition Current Condition Evaluation Date 11/27/18 Treatment Diagnosis s/p L TKA (11/24/18), fall on 11/26/18, impaired transfers and gait Weight Bearing Status Weight Bearing Status Weight Bear as Tolerated M3 PT-IP Subjective Start: 11/27/18 08:47 Freq: NEEDED Status: Active Protocol: Document 11/29/18 11:13 GGD (Rec: 11/29/18 11:19 GGD [id number]) Subjective Physical Therapy Visit Type Type Treatment Note Visit Start Time 10:40 Visit Stop Time 11:06 Total Visit Minutes 26 Number of WHEEL TUNER Visits 2 Physical Therapy Visit Comments Patient Comments Pt willing to work with PT. Therapy Pain Assessment Pain When Pain Assessed At Rest Pain Present Pain Present Pain Reported Location Left Knee Intensity 2 Scale Used Numeric (1 - 10) M4 PT-IP Mobility and Gait Start: 11/27/18 08:47 Freq: NEEDED Status: Active Protocol: Document 11/29/18 11:13 GGD (Rec: 11/29/18 11:19 GGD [id number]) PT-Bed Mobility Assessment Supine to Sit Supine to Sit Standby Assistance,Bedrails Sit to Supine Sit to Supine Minimal Assistance,1 Person Assistance,Bedrails Scooting Scooting to Edge of Bed Standby Assistance PT-Transfer Assessment Sit to and From Stand Sit to and from Stand Minimal Assistance,1 Person Assistance,Use of Upper Extremities Equipment Transfer Assistive Device Gait Belt,Front Wheeled Walker Orthotic/Prosthetic Devices or Brace: No Transfers Transfer Destination Bed Transfer Ability Level of Assist Contact Guard Assistance,1 Person Assistance Gait Assessment Gait Gait Assistance Required: Standby Assistance,Contact Guard Assist Distance (Feet) 350 Able to Maintain Weight Bearing Status Yes During Gait Assistive Devices Assistive Device Gait Belt,Front Wheeled Walker Orthotic/Prosthetic Devices or Brace: No Gait Deviations General Gait Pattern Antalgic,Decreased Stride Length,Decreased Feet Clearance,Flexed Trunk Factors Limiting Gait Function Factors Limiting Gait Function Decreased Strength,Pain,Poor Balance M5 PT-IP Objective Assessments Start: 11/27/18 08:47 Freq: NEEDED Status: Active Protocol: Document 11/27/18 11:17 AW (Rec: 11/27/18 11:48 AW [id number]) Orientation Orientation/Cognition Level of Alertness Alert Orientation Name,Day of Week,Place, Situation Language Function Ability No Deficits Noted Safety Awareness Understands Safety Issues Memory Description No Deficits Noted Gross Range of Motion Upper Extremity ROM Assessment Within Functional Limits Lower Extremity ROM Assessment Left Impaired Strength Upper Extremity Strength Assessment Within Functional Limits Lower Extremity Strength Assessment Left Impaired Coordination Assessment Gross Coordination Gross Coordination WNL Sensation Assessment Sensation Gross Sensation WNL M6 PT-IP Treatment Start: 11/27/18 08:47 Freq: NEEDED Status: Active Protocol: Document 11/29/18 11:13 GGD (Rec: 11/29/18 11:19 GGD [id number]) Physical Therapy Treatment Exercises Exercises Ankle Pumps,Quad Sets,Heel Slides,Seated Knee Flexion/ Extension Other Treatments Other Treatment Performed sit to stand x 5 from bed M7 PT-IP Assessment and Plan Start: 11/27/18 08:47 Freq: NEEDED Status: Active Protocol: Document 11/29/18 11:13 GGD (Rec: 11/29/18 11:19 GGD [id number]) PT Summary Assessment and Plan Summary Assessment Summary Pt improving with mobility. She need min A with LE for bed mobility. She has heavy use of UE with sit to stand. She was able to progress sit to stand with less assistance. Treatment Plan Physical Therapy Treatment Plan Bed Mobility Training,Transfer Training,Gait Training, Therapeutic Exercise,Balance Retraining,Post Op Education, Discharge Planning,Hot or Cold Pack,Neuromuscular Re-ed, Coordination Retraining,Manual Therapy Recommendations To Nursing Amount of Assist Needed 1 Person Assist Discharge Recommendations PT Discharge Recommendations Home with Assistance, Outpatient PT
[2018-11-29 12:00] VITALS: BP 136/57; PULSE 81; RESP 18; TEMP 37.6; O2SAT 94
[2018-11-29] MEDS: BISACODYL 10 MG SUPP PR (15:53)
[2018-11-29 16:30] VITALS: BP 128/50; PULSE 79; RESP 16; TEMP 36.8; O2SAT 93
--- NOTE | 2018-11-29 19:28 | PC.NURSE ---
Assumed care of pt at 1500. Resting in bed during bedside hand-off. Drsg with increased moderate drainage within borders. CMS+. Supp given and BM short after. Calling appropriately for needs. Student nurse participating in pt care. All care completed by student has been under the supervision of this RN.
[2018-11-29] MEDS: GABAPENTIN 300 MG CAPSULE 900 MG PO (21:26)
[2018-11-29] MEDS: PANTOPRAZOLE 20 MG TABLET PO (21:27)
[2018-11-30 00:20] VITALS: BP 138/51; PULSE 83; RESP 16; TEMP 36.8; O2SAT 94
[2018-11-30] MEDS: LIOTHYRONINE 5 MCG TABLET PO (06:13)
[2018-11-30 08:00] VITALS: BP 159/86; PULSE 96; RESP 16; TEMP 36.9; O2SAT 94
[2018-11-30] MEDS: ASPIRIN EC 81 MG TABLET PO (08:31)
[2018-11-30] MEDS: GABAPENTIN 600 MG TABLET PO (08:31)
[2018-11-30] MEDS: MELOXICAM 7.5 MG TABLET 15 MG PO (08:31)
[2018-11-30 08:32] VITALS: BP 159/86
[2018-11-30] MEDS: ACETAMINOPHEN 325 MG TABLET 975 MG PO (08:32)
[2018-11-30] MEDS: DOCUSATE 100 MG CAPSULE PO (08:32)
[2018-11-30] MEDS: LOSARTAN 50 MG TABLET 100 MG PO (08:32)
[2018-11-30] MEDS: FUROSEMIDE 20 MG TABLET PO (08:37)
[2018-11-30] MEDS: MULTIVITAMIN 1 TABLET 1 TAB PO (08:37)
[2018-11-30] MEDS: LEVOTHYROXINE 100 MCG TABLET 400 MCG PO (08:46)
--- NOTE | 2018-11-30 09:03 | P.PN_ITS ---
Subjective Subjective Date Patient Seen: 11/30/18 Time Patient Seen: 09:03 Interval history: She is doing better today. Was up and walking with physical therapy multiple times yesterday. Good pain control. Exam Vital Signs (past 8 hours): - 11/30/18 08:32 Blood Pressure 159/86 H Oxygen Delivery Method Room Air Oxygen Flow Rate 0 Const Orientation: alert and oriented x3 Extrem Other: Left knee minimal new drainage on dressing, less than 20% larger compared to the amount of drainage she had had overnight the night before. Objective Labs Result Diagrams: 11/27/18 05:00 Assessment & Plan Post-op Postoperative Postoperative status narrative: Her drainage is drying up. There does not appear to be more hematoma to evacuate and per Dr. Crum' plan, we will let her go home today as she does not need a washout at this point. Quality VTE Deep Vein Thrombosis/Pulmonary Embolism Present on Admission: No
--- NOTE | 2018-11-30 09:05 | P.DS_ITS ---
History of Present Illness History of Present Illness Date Patient Seen: 11/30/18 Time Patient Seen: 09:05 Chief complaint: Left Knee Pain Narrative: 73-year-old female that underwent a left total knee replacement with Dr. Crum on 11/24/2018. She was in the hospital for 2 days and then discharged home. However, at home her legs buckled underneath her and she landed on her left knee and had a large amount of drainage and was readmitted to the hospital. Discharge Providers Provider Date of admission: 11/26/18 18:26 Discharge Date: 11/30/18 Primary care physician: Nigel Hughes MD Consults: 11/26/18 19:06 Consult to Discharge Planning Routine Comment: Consult to Physical Therapy Evaluate & Treat Comment: Physician Instructions: postop TKA protocol Discharge provider: Tru Leyva MD Summary Hospital Course Discharge Diagnosis: Left total knee replacement Hospital Course: She was admitted and her dressing was changed. She was mobilizing with physical therapy. She had some more drainage the 1st day and dressing was changed on 11/28/2018. Still some drainage on the dressing the next day, but by the day after that there was minimal new drainage. She has been mobilizing well with physical therapy and stable. Was felt that she would be stable for discharge home at this point. Status at Discharge Cognitive/behavioral status at discharge: oriented Functional status at discharge: uses cane/walker Overall status at discharge: patient is progressing back to baseline Exam Vital Signs (past 8 hours): - 11/30/18 08:32 Blood Pressure 159/86 H Oxygen Delivery Method Room Air Oxygen Flow Rate 0 Const Orientation: alert and oriented x3 Extrem Other: Left knee moderate drainage on dressing but minimal new drainage compared to yesterday. Objective Labs Result Diagrams: 11/27/18 05:00 Discharge Plan Discharge Plan Patient Disposition: Home Discharge comment: Follow-up [address] Crum She has pain medication at home already Discharge Med Rec/Prescriptions Prescriptions: Continued acetaminophen [Tylenol Arthritis Pain] 650 mg Tablet Extended Release 1,300 mg PO TID RF: 0 gabapentin 300 mg Capsule 900 mg PO QPM RF: 0 furosemide 20 mg Tablet 20 mg PO QAM RF: 0 ibuprofen 600 mg Tablet 600 mg PO TID RF: 0 losartan 100 mg Tablet 100 mg PO DAILY RF: 0 omeprazole 20 mg Tablet,Delayed Release (Dr/Ec) 20 mg PO BEDTIME RF: 0 aspirin 81 mg Tablet,Delayed Release (Dr/Ec) 81 mg PO BID Qty: 50 RF: 0 docusate sodium [DOK] 100 mg Capsule 100 mg PO BID Qty: 60 RF: 0 oxycodone 5 mg Tablet 5 mg PO Q3HR PRN (Reason: Pain, Moderate (4-6)) Qty: 40 RF: 0 liothyronine 5 mcg tablet 10 mcg PO DAILY RF: 0 terbinafine HCl 250 mg tablet 250 mg PO DAILY RF: 0 lidocaine 5 % adhesive patch,medicated 1 patch topical PRN PRN (Reason: pain) RF: 0 gabapentin 300 mg capsule 600 mg PO QAM RF: 0 hydroxyzine HCl 25 mg tablet 25 mg PO QID RF: 0 levothyroxine [Synthroid] 200 mcg tablet 200 mcg PO MOTUWETHFRSA RF: 0 levothyroxine [Synthroid] 200 mcg tablet 400 mcg PO KAM RF: 0 Glucosamine Chondroitin 1 cap PO DAILY RF: 0 cyanocobalamin (vitamin B-12) [Vitamin B-12] 500 mcg Tablet 500 mcg PO DAILY RF: 0 mupirocin 2 % ointment 1 applic TOPICAL BEDTIME RF: 0 multivitamin Tablet,Chewable 1 tab PO DAILY RF: 0 cholecalciferol (vitamin D3) [Vitamin D3] 5,000 unit Tablet 5,000 unit PO DAILY RF: 0 Benefiber And Fiber Gummies 1 dose PO DAILY RF: 0 calcium citrate 1 tab PO QAM RF: 0 Follow up/Referrals: Nigel Hughes MD [Primary Care Provider] - Provider Discharge Instructions Diet: Diet as Tolerated Activity: Weight bear as tolerated, work on range of motion of the left knee Skin/Wound/Dressing Care Report to your healthcare provider any signs of infection, such as:: chills, fever, night sweats, increased pain, unusual drainage and unusual redness Dressing: Keep dressing intact. Notify the office if there is any increase in drainage. Discharge Data Primary Care Provider: Nigel Hughes Quality VTE Deep Vein Thrombosis/Pulmonary Embolism Present on Admission: No
[2018-11-30] MEDS: OXYCODONE IR 5 MG TABLET PO (11:32)
--- NOTE | 2018-11-30 11:54 | PC.NURSE ---
Pt dressed and ready for discharge home with Spouse. Dsg to left knee was changed to a new aquacell and has no new drainage evident. PO pain med given for pain. Went over d/c instructions with Pt and Spouse - discussed d/c meds, time of last dose, reviewed stroke education, follow up, s/s of infection, and to drink fluids to prevent constipation or dehydration. Pt and Spouse deny further questions except for the set up of home health which was initiated by Gypsy from [facility]. Cecelia CYR HVAC ESTIMATOR now checking in to this and will talk with Pt. Pt ready for discharge out with Spouse via w/c as soon as HH information is given.
--- NOTE | 2018-11-30 12:52 | CM.DPC ---
DCP/continued: Reviewed chart. Received notification from Orthopedic team that patient medically stable for discharge home today. Dr. Lee rounded on patient. No HH indicated by MD. No HH or F2F signed. However, CM team notes report referral sent to [facility] on 11-29-18. RN reports that patient had spoken with CARON/Gypsy and were hoping to have HH through [facility]. Met with patient and spouse, explained to them that no order received for HH but referral made. They continue to want HH if possible. Therefore, CLAIMS ANALYST placed call to Yum[facility] at [facility]. She confirms that they can accept referral, d/c summary faxed. Yumiko reports that she will call Ortho office in AM and obtain order and F2F from Dr. Crum. Patient and spouse made aware of above and are appreciative. Brochure for [facility] with Yumiko's phone number provided. P: Home today. [facility] arranged but Orthopedic team needs to confirm order and complete F2F. Important message from medicare signed by patient this AM. CARON Servin
== END 2018-11-30 12:47 | disposition home or self-care (01) | DRG 470 ==
LOC: AC 11-26 11:14 → OR 11-26 12:56 → AC 12-01 11:18
PROVIDERS: Admitting Provider Orthopaedic Surgery; PCP Family Medicine; Visit Provider Orthopaedic Surgery
PROC: 0SRD0JZ Replacement of Left Knee Joint with Synthetic Substitute, Open Approach (ICD-10-PCS; CPT 27447; principal; 2018-11-24 10:15)
DX: M17.12 Unilateral primary osteoarthritis, left knee (principal); Z68.42 Body mass index [BMI] 45.0-49.9, adult; G47.33 Obstructive sleep apnea (adult) (pediatric); E66.01 Morbid (severe) obesity due to excess calories; M25.462 Effusion, left knee; S80.02XA Contusion of left knee, initial encounter; W18.30XA Fall on same level, unspecified, initial encounter; Y92.009 Unspecified place in unspecified non-institutional (private) residence as the place of occurrence of the external cause
CPT/HCPCS: 27447; 36415; 73560; 73562; 85014; 85018; 85025; 93005; 97110; 97116; 97162; 97530; 99283; 99284; C1776; G0378; C9290; J0690; J1100; J1170; J2250; J2270; J2274; J2405; J2704; J3010

== ENCOUNTER → 2018-12-04 13:17 | Outpatient (CLI) | payer MEDICARE, OTHER, SELFPAY ==
[2018-11-26 18:37] VITALS: BMI 45.5
--- NOTE | 2018-12-04 | DI.US.S_ITS ---
PROCEDURE: US PERIPH VENOUS LOW EXTREM LT INDICATIONS: Disruption of external operation wound TECHNIQUE: Real-time imaging, as well as color and pulse Doppler interrogation, were performed of the lower extremity deep veins from the inguinal ligament to the popliteal fossa. COMPARISON: None. FINDINGS: The common femoral, femoral and popliteal veins are normally compressible, and free of intraluminal thrombus. Color and pulse Doppler demonstrate normal phasic intraluminal flow. There is normal augmentation response to distal compression maneuver. IMPRESSION: No deep venous thrombosis identified within the left lower extremity. Dictated by: Rudi REYES Interpreted: Malgorzata Messina MD on 12/04/2018 at 14:10 Approved by: Malgorzata Messina M.D. on 12/04/2018 at 18:46
== END ==
PROVIDERS: PCP Family Medicine; Visit Provider Orthopaedic Surgery
DX: T81.31XA Disruption of external operation (surgical) wound, not elsewhere classified, initial encounter (principal)
CPT/HCPCS: 93971

== ENCOUNTER 2018-12-04 15:23 | Inpatient (IN) | payer MEDICARE, OTHER, SELFPAY ==
[2018-11-26 18:37] VITALS: BMI 45.5
[2018-12-04] VITALS (15 sets, daily range): BP systolic 119–161; BP diastolic 45–83; PULSE 78–108; RESP 13–25; TEMP 36.8–37.4; O2SAT 89–99; BMI 42.1
[2018-12-04] MEDS: LACTATED RINGERS 1,000 ML 42 ML IV (15:25)
--- NOTE | 2018-12-04 18:34 | PM.PREOP ---
Pre-operative Note Interval Note History & Physical reviewed/Exam performed by Physician: Yes Changes to H&P: No
[2018-12-04] MEDS: CEFAZOLIN 2 GM/100 ML FROZ.PIGGY IV (18:36)
[2018-12-04] MEDS: HYDROMORPHONE 2 MG INJ 0.5 MG IV ×2 (19:38→19:52)
--- NOTE | 2018-12-04 19:39 | PM.OP.1 ---
Operative Date/Time/Diagnoses Date of procedure: 12/04/18 Time of procedure: 19:39 Pre-op diagnosis: Traumatic dehiscence of left knee surgical wound Post-op diagnosis: same Procedure & Clinicians Procedure: Incision and drainage of subcutaneous tissue to the level of fascia Same procedure as scheduled: Yes Indications: The patient is a 73 year old woman who 10 days ago underwent a left total knee replacement. She was discharged 2 days postoperatively and fell directly on her operative knee. There was initially quite a bit of bleeding from the wound but this rapidly decreased and she was eventually discharged with minimal drainage. However the drainage continued unabated until we she was seen in clinic yesterday. She has agreed to incision and drainage of the hematoma and the wound dehiscence after discussion the risks benefits and alternatives. She is aware that if this enters the joint this may require polyethylene exchange and long-term antibiotics. Risks discussed included but were not limited to potential infection not being addressed, deep venous thrombosis, pulmonary embolism, stroke, myocardial infarction, permanent paralysis and . Surgeon: Fabio Crum Click Yes if Unassisted: Yes Anesthesia Type: General Operative Notes Findings: Large subcutaneous hematoma superficial to the capsular closure. No evidence of purulence or infection. Closure Type: primary Specimen(s): other (Two swabs were sent for culture.) Prosthetic devices, grafts, tissues, transplants, or devices: None Applied: drain(s) Estimated Blood Loss (mL): 50 Blood products transfused: none Tourniquet time (min): 0 Procedure in detail: The patient was seen in the preoperative area where she identified her left leg as the operative site and this was marked with my initials. She received preoperative antibiotics and was taken to the operating room and placed on the operating room table in a supine position. She underwent a general anesthetic. A tourniquet was placed about her proximal left thigh although it was never inflated. The left leg was prepared from the toes to the tourniquet with ChloraPrep. The wound was reopened using a scalpel to cut the subcuticular stitches. A large organized hematoma was encountered immediately under the skin incision. This extended medially and laterally under the skin flaps to the full extent of the operative dissection but did not extend into the knee joint. I carefully palpated the full extent of the arthrotomy closure and there was no defect. The hematoma was evacuated with suction and by scooping it out with my hands and sponges. Swab cultures were taken. A total of 4 L of pulsatile lavage was used to irrigate the hematoma cavity. The wound was inspected for ongoing bleeding and there was none. A deep drain was placed. Subcutaneous layer was closed with interrupted 3 O Vicryl. The skin was closed with pennie. A ISMA suction dressing was applied and charged. The drain was dressed with a Tegaderm. An Harish wrap was then applied as a compression dressing. The patient was then allowed to awaken from her anesthetic and transported to the recovery room in good condition having tolerated the procedure well. Complications: none Post-operative Condition: stable Disposition: PACU Plan for aftercare: The patient will be maintained in the hospital until drainage is less than 10 mL per shift. The drain will then be removed. She will be maintained on 24 hours of cephalexin and then oral Keflex until the cultures return. She may be discharged once the drainage is minimal and she is ambulating safely for home discharge.
--- NOTE | 2018-12-04 20:50 | SUR.PHASEI ---
PT TRANSFERRED TO ACUTE CARE FLOOR IN STABLE CONDITION, VSS. PT ALERT AND TALKING TO RN DURING TRANSPORT. BEDSIDE REPORT GIVEN TO [facility]LINE COLES. TRANSFERRED CARE OF PT TO CARLINE COLES AT THAT TIME.
[2018-12-04] MEDS: ASPIRIN EC 81 MG TABLET PO (22:06)
[2018-12-04] MEDS: PANTOPRAZOLE 20 MG TABLET PO (22:06)
[2018-12-04] MEDS: DOCUSATE 100 MG CAPSULE PO (22:06)
[2018-12-04] MEDS: FUROSEMIDE 20 MG TABLET PO (22:07)
[2018-12-04] MEDS: GABAPENTIN 300 MG CAPSULE 600 MG PO (22:07)
[2018-12-04] MEDS: LACTATED RINGERS 1,000 ML 125 ML IV (22:08)
[2018-12-04] MEDS: OXYCODONE IR 5 MG TABLET PO (22:08)
[2018-12-04] MEDS: POLYETHYLENE GLYCOL 3350 17 GM POWD.PACK PO (22:09)
--- NOTE | 2018-12-04 22:31 | PC.ADMIT ---
[address] Admission Note: The patient,Juliana Romano,73 y/o, was given written information regarding hospital policies, unit procedures and contact persons. Patient's smoking status: Never smoker. Pt arrived from PACU at approx 204. Drsg c/d/i with alfonso wrap, genesis light flashing, H/V compressed and draining. cms+. Oriented to room and call system. Vital Signs - 8 hr 12/04/18 15:21 12/04/18 19:35 12/04/18 19:40 Temperature 99.1 F 98.4 F Pulse Rate 90 108 H 86 Respiratory Rate 22 20 25 H Blood Pressure 143/72 H 119/65 143/57 H Pulse Oximetry 99 89 L 99 12/04/18 19:45 12/04/18 19:50 12/04/18 19:55 Temperature Pulse Rate 85 83 78 Respiratory Rate 14 19 17 Blood Pressure 149/52 H 152/45 H 142/66 H Pulse Oximetry 99 98 99 12/04/18 20:00 12/04/18 20:05 12/04/18 20:10 Temperature Pulse Rate 83 82 84 Respiratory Rate 16 14 18 Blood Pressure 145/64 H 123/83 139/72 Pulse Oximetry 92 96 92 12/04/18 20:20 12/04/18 20:30 12/04/18 20:45 Temperature 98.7 F Pulse Rate 79 79 84 Respiratory Rate 14 13 16 Blood Pressure 149/68 H 135/61 145/69 H Pulse Oximetry 98 98 94 12/04/18 21:15 12/04/18 21:45 Temperature 98.9 F 98.3 F Pulse Rate 85 78 Respiratory Rate 16 17 Blood Pressure 135/67 141/67 H Pulse Oximetry 98 99
[2018-12-05 00:10] VITALS: BP 106/51; PULSE 76; RESP 16; TEMP 36.5; O2SAT 96
[2018-12-05] MEDS: CEFAZOLIN 2 GM/100 ML FROZ.PIGGY IV ×3 (03:05→18:08)
[2018-12-05 05:18] VITALS: BP 136/61; PULSE 68; RESP 16; TEMP 36.5; O2SAT 94
--- NOTE | 2018-12-05 05:28 | PC.NURSE ---
Spoke with cardinal regarding tylenol order not verified. It is non formulary and patient would need to bring in from home. Other med offered for minimum pain.
[2018-12-05] MEDS: OXYCODONE IR 5 MG TABLET PO ×3 (05:39→21:24)
--- NOTE | 2018-12-05 05:58 | PC.NURSE ---
Patient received percolone for pain. Family will bring in her tylenol arthritis med in the original bottle this morning. Patient also states she takes her cytomel before breakfast with her thyroid medication. I will give this med early as asked.
[2018-12-05 07:15] VITALS: BP 126/58; PULSE 71; RESP 16; TEMP 36.4; O2SAT 94
[2018-12-05] MEDS: LIOTHYRONINE 5 MCG TABLET 10 MCG PO (07:39)
[2018-12-05] MEDS: LEVOTHYROXINE 100 MCG TABLET 200 MCG PO (07:41)
[2018-12-05] MEDS: MAGNESIUM HYDROXIDE 30 ML UDC PO (08:31)
[2018-12-05] MEDS: POLYETHYLENE GLYCOL 3350 17 GM POWD.PACK PO (08:32)
[2018-12-05] MEDS: FUROSEMIDE 20 MG TABLET PO (08:32)
[2018-12-05] MEDS: ASPIRIN EC 81 MG TABLET PO ×2 (08:32→21:18)
[2018-12-05] MEDS: DOCUSATE 100 MG CAPSULE PO ×2 (08:32→21:18)
[2018-12-05] MEDS: LOSARTAN 50 MG TABLET 100 MG PO (08:33)
[2018-12-05] MEDS: GABAPENTIN 300 MG CAPSULE 600 MG PO (08:33)
[2018-12-05] MEDS: MELOXICAM 7.5 MG TABLET 15 MG PO (08:33)
[2018-12-05] MEDS: ACETAMINOPHEN 325 MG TABLET 1300 MG PO ×3 (08:33→21:18)
--- NOTE | 2018-12-05 08:53 | PM.PNPO.1 ---
Subjective Subjective Date Patient Seen: 12/05/18 Time Patient Seen: 08:53 Interval history: Patient is POD#1 s/p incision and drainage of left knee, she is 11 days s/p left total knee arthroplasty. She reports she is feeling well, pain has been well managed with Oxycodone and she notes improvement in her preop pain due to significant knee swelling. Minimal drainage overnight however she has not yet mobilized with PT. No fevers/chills, chest pain or shortness of breath. Exam Vital Signs (past 8 hours): - 12/05/18 05:18 12/05/18 07:15 Temperature 97.7 F 97.5 F L Pulse Rate 68 71 Respiratory Rate 16 16 Blood Pressure 136/61 126/58 L Pulse Oximetry 94 94 Oxygen Delivery Method BiPAP Oxygen Flow Rate 0 Narrative Exam Narrative: Pleasant 73 year old female resting in chair. Alert and oriented in no acute distress. Harish wrap in place, underlying ISMA dressing is operational, CDI with no shadow drainage. Patient able to flex/extend the ankle. Calves soft and compressible. Palpable pedal pulse. Assessment & Plan Post-op Postoperative Procedures: Procedures Operation Date: 12/04/18 17:30 Actual Procedures Side Surgeon p incision and drainage of knee Left Fabio Crum MD Patient is doing well postoperatively. Minimal drainage overnight but will continue to monitor this today as she has only mobilized to chair. Patient should continue to mobilize with PT. Once completed 24 hour IV cephalexin will transition to oral Keflex pending cultures. Possible discharge tomorrow.
--- NOTE | 2018-12-05 09:15 | PT.IIE ---
Surgery Performed Operation Date: 12/04/18 17:30 Actual Procedures p incision and drainage of knee(Left) - Fabio Crum MD Surgical History (Last Reviewed 11/26/18 @ 23:47 by SHELBY Jovel) History of 3 sections (Acute) History of knee replacement (Acute) History of lumbar fusion (Acute ~2014) History of lumbar laminectomy (Acute) Hx of bariatric surgery (Acute ~01/2014) Hx of cholecystectomy (Acute ~09/2006) Hx of lumbar discectomy (Acute ~2012) Hx of tubal ligation (Acute) S/P hernia surgery (Acute) Medical History (Last Reviewed 11/26/18 @ 23:47 by SHELBY Jovel) Ankle fracture, left (Acute ~2007) Arthritis (Acute) Bilateral knee pain (Acute) Eczema (Acute) Edema (Acute) Fibromyalgia (Acute) Fragile skin (Acute) Hearing impaired (Acute) HTN (hypertension) (Acute) Hypothyroid (Acute) Osteoarthritis (Acute) Sleep apnea (Acute) Physical Therapy Inpatient Evaluation/Re-Eval M1 PT/OT-IP Prior Functional Status Start: 12/05/18 10:58 Freq: NEEDED Status: Active Protocol: Document 12/05/18 09:15 AB (Rec: 12/05/18 11:13 AB [id number]) Medical Review Prior Functional Status Medical History Reviewed Yes Communication able to make needs known Mobility and Gait pt stated that her assists her at home. provided CGA with ambulation using FWW Prior Functional Level (Other details) pt underwent L TKA 11/24/18. pt d/c home but had a fall and came back to the hospital the same day. pt d/c'd home . Pt underwent I&D of L TKA 12/04/18. Social History Household Members spouse Living Arrangements House Number of Floors (Floors) One Floor Number of Stairs To Enter/Railing? ramp to enter Home Environment Standard Height Toilet,Walk in Shower,Ramp Home Equipment Front Wheel Walker,Straight Cane,Raised Toilet Seat w/ Armrests,Hand Held Shower,Long Handled Shoe Horn,Floor Covering Printer, Sock Aid,Grab Bars In Shower M2 PT-IP Current Condition Start: 12/05/18 10:58 Freq: NEEDED Status: Active Protocol: Document 12/05/18 09:15 AB (Rec: 12/05/18 11:13 [id number]) Physical Therapy Current Condition Current Condition Evaluation Date 12/05/18 Treatment Diagnosis L TKA s/p I&D; difficulty in walking Onset Date 12/04/18 Weight Bearing Status Weight Bearing Status Weight Bear as Tolerated M3 PT-IP Subjective Start: 12/05/18 10:58 Freq: NEEDED Status: Active Protocol: Document 12/05/18 09:15 AB (Rec: 12/05/18 11:13 [id number]) Subjective Physical Therapy Visit Type Type Initial Evaluation Visit Start Time 09:15 Visit Stop Time 09:50 Total Visit Minutes 35 Number of CIS COORDINATOR Visits 0 Physical Therapy Visit Comments Patient Comments pt agreeable to do PT Therapy Pain Assessment Pain When Pain Assessed At Rest Pain Present Pain Present Pain Reported Location Left Knee Intensity 2 Scale Used Numeric (1 - 10) Pain Management Techniques Apply Cold,Re-positioning, Timing of Activity with Medications M4 PT-IP Mobility and Gait Start: 12/05/18 10:58 Freq: NEEDED Status: Active Protocol: Document 12/05/18 09:15 AB (Rec: 12/05/18 11:13 [id number]) PT-Bed Mobility Assessment Supine to Sit Supine to Sit Standby Assistance,Bedrails Sit to Supine Sit to Supine Standby Assistance,Bedrails PT-Transfer Assessment Sit to and From Stand Sit to and from Stand Maximum Assistance,1 Person Assistance,Use of Upper Extremities Equipment Transfer Assistive Device Gait Belt,Front Wheeled Walker Orthotic/Prosthetic Devices or Brace: No Transfers Transfer Destination Toilet Transfer Technique pt ambulated using FWW Transfer Ability Level of Assist Contact Guard Assistance, Minimal Assistance,1 Person Assistance,Use of Upper Extremities Comments Mobility Comments pt required max A for sit to stand from chair. pt is steady once standing up and was able to ambulated to the toilet using FWW CGA. completed toileting with assist with brief management. completed sit to stand from the toilet using grab bar min A and cues. pt requested to go back to bed after PT session. positioned in bed. call light and table placed within reach. Gait Assessment Gait Gait Assistance Required: Standby Assistance,Contact Guard Assist Distance (Feet) 250 Able to Maintain Weight Bearing Status Yes During Gait Assistive Devices Assistive Device Gait Belt,Front Wheeled Walker Orthotic/Prosthetic Devices or Brace: No Gait Deviations General Gait Pattern Antalgic,Decreased Stride Length,Decreased Feet Clearance Factors Limiting Gait Function Factors Limiting Gait Function Decreased Activity Tolerance, Decreased Strength,Limited Range of Motion,Pain,Poor Balance PT-Balance Assessment Sitting Balance and Reactions Static Sitting Balance Ability Normal Dynamic Sitting Balance Ability Good Standing Balance and Reactions Static Standing Balance Ability Fair Dynamic Standing Balance Ability Fair Device Used FWW M5 PT-IP Objective Assessments Start: 12/05/18 10:58 Freq: NEEDED Status: Active Protocol: Document 12/05/18 09:15 AB (Rec: 12/05/18 11:13 AB [id number]) Orientation Orientation/Cognition Level of Alertness Alert Orientation Name,Age,Birthday,Month,Date, Year,Day of Week,Place, Situation Gross Range of Motion Lower Extremity ROM Assessment Left Impaired Impairments limited L knee flexion Strength Lower Extremity Strength Assessment Bilaterally Impaired Hip 3/5 Knee 3+/5 Coordination Assessment Gross Coordination Gross Coordination WNL Muscle Tone Muscle Tone WNL Yes M6 PT-IP Treatment Start: 12/05/18 10:58 Freq: NEEDED Status: Active Protocol: Document 12/05/18 09:15 AB (Rec: 12/05/18 11:13 AB [id number]) Physical Therapy Treatment Education Education Provided Precautions,Weight Bearing Status,Safety M7 PT-IP Assessment and Plan Start: 12/05/18 10:58 Freq: NEEDED Status: Active Protocol: Document 12/05/18 09:15 AB (Rec: 12/05/18 11:13 [id number]) PT Summary Assessment and Plan Potential Rehabilitation Potential Good Status of Condition at Evaluation Stable Summary Impairments Pain,ROM,Strength,Balance, Sensation,Bed Mobility, Transfers,Gait,Activity Tolerance Assessment Summary Pt requiring max A for sit to stand from chair but only requires CGA for ambulation using FWW. pt plans to go home and spouse will be able to assist pt at home. pt stated she has been doing well at home and has set up for homehealth PT. Goals Bed Mobility Goal Independent Transfer Goal Standby Assistance,Front Wheeled Walker Gait Goal Independent,Front Wheel Walker Gait Distance 300 Days to Meet Goals 3 Frequency of Treatment Frequency Of Treatment Twice a Day Treatment Plan Physical Therapy Treatment Plan Bed Mobility Training,Transfer Training,Gait Training, Therapeutic Exercise,Balance Retraining,Post Op Education, Discharge Planning,Hot or Cold Pack,Neuromuscular Re-ed, Coordination Retraining,Manual Therapy Recommendations To Nursing Amount of Assist Needed 1 Person Assist Discharge Recommendations PT Discharge Recommendations Home with 03/09 Assist,Home Health
[2018-12-05 11:15] VITALS: BP 115/61; PULSE 72; RESP 16; TEMP 36.7; O2SAT 95
[2018-12-05 13:45] VITALS: BMI 42.0
[2018-12-05 15:33] VITALS: BP 124/57; PULSE 70; RESP 16; TEMP 36.8; O2SAT 93
[2018-12-05] MEDS: GABAPENTIN 300 MG CAPSULE 900 MG PO (17:02)
--- NOTE | 2018-12-05 17:18 | PT.IPTN ---
Surgery Performed Operation Date: 12/04/18 17:30 Actual Procedures p incision and drainage of knee(Left) - Fabio Crum MD Physical Therapy Treatment Note M2 PT-IP Current Condition Start: 12/05/18 10:58 Freq: NEEDED Status: Active Protocol: Document 12/05/18 09:15 AB (Rec: 12/05/18 11:13 AB [id number]) Physical Therapy Current Condition Current Condition Evaluation Date 12/05/18 Treatment Diagnosis L TKA s/p I&D; difficulty in walking Onset Date 12/04/18 Weight Bearing Status Weight Bearing Status Weight Bear as Tolerated M3 PT-IP Subjective Start: 12/05/18 10:58 Freq: NEEDED Status: Active Protocol: Document 12/05/18 16:50 HH (Rec: 12/05/18 17:18 HH [id number]) Subjective Physical Therapy Visit Type Type Initial Evaluation Visit Start Time 16:50 Visit Stop Time 17:10 Total Visit Minutes 20 Number of ROTARY DUMP OPERATOR Visits 0 Physical Therapy Visit Comments Patient Comments pt agreeable to do PT Therapy Pain Assessment Pain When Pain Assessed At Rest Pain Present Pain Present Pain Reported Location Left Knee Intensity 2 Scale Used Numeric (1 - 10) Pain Management Techniques Apply Cold,Re-positioning, Timing of Activity with Medications M4 PT-IP Mobility and Gait Start: 12/05/18 10:58 Freq: NEEDED Status: Active Protocol: Document 12/05/18 16:50 HH (Rec: 12/05/18 17:18 HH [id number]) PT-Bed Mobility Assessment Supine to Sit Supine to Sit Standby Assistance,Bedrails Sit to Supine Sit to Supine Standby Assistance,Bedrails PT-Transfer Assessment Sit to and From Stand Sit to and from Stand Contact Guard Assistance, Minimal Assistance,1 Person Assistance,Use of Upper Extremities Equipment Transfer Assistive Device Gait Belt,Front Wheeled Walker Orthotic/Prosthetic Devices or Brace: No Transfers Transfer Destination Bed,Toilet Transfer Technique pt ambulated using FWW Transfer Ability Level of Assist Contact Guard Assistance, Minimal Assistance,1 Person Assistance,Use of Upper Extremities Comments Mobility Comments Pt completed sit to stand 6 times from EOB with CGA to min A. Pt uses rocking motion through trunk to gain momentum for STS. But she was able to perform them safely. Pt also did stand step pivot transfer to toilet. But she needed to use grab bar for pull to stand from staggered stance position. Pt returned to bed for dinner after ambulation. Gait Assessment Gait Gait Assistance Required: Standby Assistance,Contact Guard Assist Distance (Feet) 270 Able to Maintain Weight Bearing Status Yes During Gait Assistive Devices Assistive Device Gait Belt,Front Wheeled Walker Orthotic/Prosthetic Devices or Brace: No Gait Deviations General Gait Pattern Antalgic,Decreased Stride Length,Decreased Feet Clearance Factors Limiting Gait Function Factors Limiting Gait Function Decreased Activity Tolerance, Decreased Strength,Limited Range of Motion,Pain,Poor Balance Comments Gait Comments Pt amb safely and steady with FWW SBA. Her gait is close to PLOF with step over pattern. PT-Balance Assessment Sitting Balance and Reactions Static Sitting Balance Ability Normal Dynamic Sitting Balance Ability Good Standing Balance and Reactions Static Standing Balance Ability Fair Dynamic Standing Balance Ability Fair Device Used FWW M5 PT-IP Objective Assessments Start: 12/05/18 10:58 Freq: NEEDED Status: Active Protocol: Document 12/05/18 09:15 AB (Rec: 12/05/18 11:13 AB [id number]) Orientation Orientation/Cognition Level of Alertness Alert Orientation Name,Age,Birthday,Month,Date, Year,Day of Week,Place, Situation Gross Range of Motion Lower Extremity ROM Assessment Left Impaired Impairments limited L knee flexion Strength Lower Extremity Strength Assessment Bilaterally Impaired Hip 3/5 Knee 3+/5 Coordination Assessment Gross Coordination Gross Coordination WNL Muscle Tone Muscle Tone WNL Yes M6 PT-IP Treatment Start: 12/05/18 10:58 Freq: NEEDED Status: Active Protocol: Document 12/05/18 09:15 AB (Rec: 12/05/18 11:13 AB [id number]) Physical Therapy Treatment Education Education Provided Precautions,Weight Bearing Status,Safety M7 PT-IP Assessment and Plan Start: 12/05/18 10:58 Freq: NEEDED Status: Active Protocol: Document 12/05/18 16:50 HH (Rec: 12/05/18 17:18 HH [id number]) PT Summary Assessment and Plan Potential Rehabilitation Potential Good Status of Condition at Evaluation Stable Summary Impairments Pain,ROM,Strength,Balance, Sensation,Bed Mobility, Transfers,Gait,Activity Tolerance Assessment Summary Pt shows improved mobility at this session. CGA to min A for sit to stand from bed, and min A from reg toilet with grab bars. Pt appears close to PLOF regarding of her mobility and strength. Pt had her to build a ramp to enter their home. Pt will be able to d/c home with ' s assistance, along with HH twice a week. Goals Bed Mobility Goal Independent Transfer Goal Standby Assistance,Front Wheeled Walker Gait Goal Independent,Front Wheel Walker Gait Distance 300 Days to Meet Goals 3 Frequency of Treatment Frequency Of Treatment Twice a Day Treatment Plan Physical Therapy Treatment Plan Bed Mobility Training,Transfer Training,Gait Training, Therapeutic Exercise,Balance Retraining,Post Op Education, Discharge Planning,Hot or Cold Pack,Neuromuscular Re-ed, Coordination Retraining,Manual Therapy Recommendations To Nursing Amount of Assist Needed 1 Person Assist Discharge Recommendations PT Discharge Recommendations Home with 03/09 Assist,Home Health
--- NOTE | 2018-12-05 18:37 | CM.DANOTE ---
DCP/Assessment: Reviewed chart. Patient is a 73yr old female admitted [facility] for I&D of left knee s/p left TKA. PCP is Dr. Hughes. Primary payor is 1) Medicare 2)[employer]. Met with patient explained CM/SW role. Patient known to this HOUSE PRINCIPAL from admit for left TKA approximately 10dys ago. Patient has all needed DME in the residence. Patient has ramp to enter/exit. Patient plans to d/c home with services through [facility]. Per patient she had not yet seen HH. They attempted to see her but she had appointment and once they had coordinated she had to come back to [facility] for I&D. Patient believes that previous HH was for therapy only. Currently cultures pending to determine abx need at time of d/c. Unclear if patient will need dressing changes. Currently with hemovac in place. Phone call received from [facility]. They are requesting call from [facility] at time of d/c. At this time they do not need resume order. However, they do need call confirming therapy and possible need for wound care? and or nursing to check I&D site. P: Home when stable. [facility] to be notified upon d/c. CARON Servin Discharge Planning/Care Management CM Discharge Assessment Start: 12/05/18 18:34 Freq: Status: Active Protocol: Document 12/05/18 18:34 KJS (Rec: 12/05/18 18:37 KJS [id number]) Discharge Planning Assessment Assigned Sign Writer Letterer Or Painter CARON Servin Contact Information Fabian Romano (spouse) Advance Directives? Yes Advance Directives on File No History Provided By Patient,Medical Record Prior Living Arrangements House Household Members spouse Type of transporation used prior to Relies on Others admit Independent with ADL's Yes: Needs therapy, currently on service with [facility] Is patient alert and oriented? Yes Caregiver for Another No Community Services used prior to Physical Therapy,Occupational admission: Therapy,Home Health Nurse Comment [facility]# [phone] DME Already Rented / Owned Bath Bench,Elevated Toilet Seat,FWW / Walker Patient/Family Preference Home with Home Health Barriers to Discharge No Discharge Plan Home with Home Health Transportation Arrangement Spouse to provide transport Referrals Initiated Home Health If patient plan is home with home health Not needed. : Has signed face to face form been completed? Whiteboard Updated in Patient Room with Yes name and ext. # of Sign Writer Letterer Or Painter Review Status In Process Next Review Type Continued Stay Review
[2018-12-05 19:58] VITALS: BP 132/58; PULSE 78; RESP 14; TEMP 36.9; O2SAT 96
[2018-12-05] MEDS: PANTOPRAZOLE 20 MG TABLET PO (21:18)
[2018-12-06 00:10] VITALS: BP 124/63; PULSE 75; RESP 16; TEMP 37; O2SAT 94
[2018-12-06] MEDS: CEFAZOLIN 2 GM/100 ML FROZ.PIGGY IV ×2 (02:13→09:19)
[2018-12-06] MEDS: OXYCODONE IR 5 MG TABLET PO ×4 (02:14→17:52)
[2018-12-06 05:42] VITALS: BP 143/61; PULSE 95; TEMP 36.9; O2SAT 16
[2018-12-06] MEDS: LIOTHYRONINE 5 MCG TABLET 10 MCG PO (06:26)
[2018-12-06] MEDS: LEVOTHYROXINE 100 MCG TABLET 200 MCG PO (06:28)
[2018-12-06 08:14] VITALS: BP 110/73; PULSE 75; RESP 16; TEMP 36.6; O2SAT 96
[2018-12-06] MEDS: LIDOCAINE PATCH 1 EACH ADH..PATCH TOP (09:18)
[2018-12-06] MEDS: ACETAMINOPHEN 325 MG TABLET 1300 MG PO ×2 (09:19→14:41)
[2018-12-06] MEDS: POLYETHYLENE GLYCOL 3350 17 GM POWD.PACK PO (09:19)
[2018-12-06] MEDS: DOCUSATE 100 MG CAPSULE PO (09:19)
[2018-12-06] MEDS: LOSARTAN 50 MG TABLET 100 MG PO (09:20)
[2018-12-06] MEDS: FUROSEMIDE 20 MG TABLET PO (09:20)
[2018-12-06] MEDS: ASPIRIN EC 81 MG TABLET PO (09:20)
[2018-12-06] MEDS: GABAPENTIN 300 MG CAPSULE 600 MG PO (09:21)
[2018-12-06] MEDS: MELOXICAM 7.5 MG TABLET 15 MG PO (09:28)
--- NOTE | 2018-12-06 10:22 | PC.NURSE ---
Addendum entered by Jina Guillermo R.N. 12/06/18 14:10: PAIN - requesting oxycodone after physical therapy, given 5mg po with lunch. Addendum entered by Jina Guillermo R.N. 12/06/18 10:27: addenum pain - correction to medication, pt discomfort managed with meloxicam, tylenol and oxycodone. Original Note: AM NOTE - pt is alert, pain managed with ibuprofen, tylenol and earlier oxycodone, discussed dosages and timing, will req oxycodone as needed, assist w/fww to bsc and had bm, genesis dsg cdi w/green light flashing, did req lidocaine patch for chronic back discomfort, spoke Radha ADAMS and isolation for staph epdimidis not necessary, hemovac compressed w/serosang in tubing, will dc home when drain output remains below 10cc when mobilizing.
--- NOTE | 2018-12-06 11:11 | PM.PN.1 ---
Subjective Subjective Date Patient Seen: 12/06/18 Interval history: Patient is POD#2 s/p incision and drainage of left knee, she is 12 days s/p left total knee arthroplasty. Patient had 70cc out from drain yesterday and 8cc overnight. Pain continues to be well managed. She is mobilizing well with PT. Exam Vital Signs (past 8 hours): - 12/06/18 05:42 12/06/18 08:14 Temperature 98.5 F 97.9 F Pulse Rate 95 H 75 Respiratory Rate 16 Blood Pressure 143/61 H 110/73 Pulse Oximetry 16 L 96 Oxygen Delivery Method Room Air Oxygen Flow Rate 0 Narrative Exam Narrative: Pleasant 73 year old female resting comfortably in bed. Alert and oriented on no acute distress. ISMA dressing is on and functioning, CDI. Patient able to flex/extend the foot. Palpable pedal pulse. Calves soft, compressible. Assessment & Plan Assessment & Plan narrative: Patient continued to drain yesterday. Will monitor this today, possible discharge this afternoon if output <10cc per shift. Continue to mobilize with PT. Continue IV Ancef 2gm Q8hrs. Will transition to oral Keflex at discharge.
--- NOTE | 2018-12-06 11:35 | PT.IPTN ---
Surgery Performed Operation Date: 12/04/18 17:30 Actual Procedures p incision and drainage of knee(Left) - Fabio Crum MD Physical Therapy Treatment Note M2 PT-IP Current Condition Start: 12/05/18 10:58 Freq: NEEDED Status: Active Protocol: Document 12/05/18 09:15 AB (Rec: 12/05/18 11:13 AB [id number]) Physical Therapy Current Condition Current Condition Evaluation Date 12/05/18 Treatment Diagnosis L TKA s/p I&D; difficulty in walking Onset Date 12/04/18 Weight Bearing Status Weight Bearing Status Weight Bear as Tolerated M3 PT-IP Subjective Start: 12/05/18 10:58 Freq: NEEDED Status: Active Protocol: Document 12/06/18 11:30 GGD (Rec: 12/06/18 12:34 GGD [id number]) Subjective Physical Therapy Visit Type Type Treatment Note Visit Start Time 11:11 Visit Stop Time 11:34 Total Visit Minutes 23 Number of CHIP TUNER Visits 1 Physical Therapy Visit Comments Patient Comments Pt willing to work with therapy. Therapy Pain Assessment Pain When Pain Assessed At Rest Pain Present Pain Present Pain Reported Location Left Knee Intensity 2 Scale Used Numeric (1 - 10) M4 PT-IP Mobility and Gait Start: 12/05/18 10:58 Freq: NEEDED Status: Active Protocol: Document 12/06/18 11:30 GGD (Rec: 12/06/18 12:34 GGD [id number]) PT-Bed Mobility Assessment Supine to Sit Supine to Sit Standby Assistance,Bedrails Sit to Supine Sit to Supine Standby Assistance,Bedrails PT-Transfer Assessment Sit to and From Stand Sit to and from Stand Contact Guard Assistance, Minimal Assistance,1 Person Assistance,Use of Upper Extremities Equipment Transfer Assistive Device Gait Belt,Front Wheeled Walker Orthotic/Prosthetic Devices or Brace: No Transfers Transfer Destination Bed,Toilet Transfer Ability Level of Assist Contact Guard Assistance, Minimal Assistance,1 Person Assistance,Use of Upper Extremities Gait Assessment Gait Gait Assistance Required: Standby Assistance,Contact Guard Assist Distance (Feet) 300 Able to Maintain Weight Bearing Status Yes During Gait Assistive Devices Assistive Device Gait Belt,Front Wheeled Walker Orthotic/Prosthetic Devices or Brace: No Gait Deviations General Gait Pattern Antalgic,Decreased Stride Length,Decreased Feet Clearance Factors Limiting Gait Function Factors Limiting Gait Function Decreased Activity Tolerance, Decreased Strength,Limited Range of Motion,Pain,Poor Balance M5 PT-IP Objective Assessments Start: 12/05/18 10:58 Freq: NEEDED Status: Active Protocol: Document 12/05/18 09:15 AB (Rec: 12/05/18 11:13 AB [id number]) Orientation Orientation/Cognition Level of Alertness Alert Orientation Name,Age,Birthday,Month,Date, Year,Day of Week,Place, Situation Gross Range of Motion Lower Extremity ROM Assessment Left Impaired Impairments limited L knee flexion Strength Lower Extremity Strength Assessment Bilaterally Impaired Hip 3/5 Knee 3+/5 Coordination Assessment Gross Coordination Gross Coordination WNL Muscle Tone Muscle Tone WNL Yes M6 PT-IP Treatment Start: 12/05/18 10:58 Freq: NEEDED Status: Active Protocol: Document 12/06/18 11:30 GGD (Rec: 12/06/18 12:34 GGD [id number]) Physical Therapy Treatment Exercises Exercises Ankle Pumps,Quad Sets,Heel Slides M7 PT-IP Assessment and Plan Start: 12/05/18 10:58 Freq: NEEDED Status: Active Protocol: Document 12/06/18 11:30 GGD (Rec: 12/06/18 12:34 GGD [id number]) PT Summary Assessment and Plan Summary Assessment Summary Pt improving slowly with mobility. Pt needed cues for sit to stand. She had heavy use of UE with sit to stand from chair height. Frequency of Treatment Frequency Of Treatment Twice a Day Treatment Plan Physical Therapy Treatment Plan Bed Mobility Training,Transfer Training,Gait Training, Therapeutic Exercise,Balance Retraining,Post Op Education, Discharge Planning,Hot or Cold Pack,Neuromuscular Re-ed, Coordination Retraining,Manual Therapy Recommendations To Nursing Amount of Assist Needed 1 Person Assist Discharge Recommendations PT Discharge Recommendations Home with 03/09 Assist,Home Health
[2018-12-06 11:45] VITALS: BP 139/69; PULSE 79; RESP 18; TEMP 36.9; O2SAT 96
[2018-12-06 15:45] VITALS: BP 140/77; PULSE 84; RESP 17; TEMP 36.6; O2SAT 97
--- NOTE | 2018-12-06 15:54 | PT.IPTN ---
Surgery Performed Operation Date: 12/04/18 17:30 Actual Procedures p incision and drainage of knee(Left) - Fabio Crum MD Physical Therapy Treatment Note M2 PT-IP Current Condition Start: 12/05/18 10:58 Freq: NEEDED Status: Active Protocol: Document 12/05/18 09:15 AB (Rec: 12/05/18 11:13 AB [id number]) Physical Therapy Current Condition Current Condition Evaluation Date 12/05/18 Treatment Diagnosis L TKA s/p I&D; difficulty in walking Onset Date 12/04/18 Weight Bearing Status Weight Bearing Status Weight Bear as Tolerated M3 PT-IP Subjective Start: 12/05/18 10:58 Freq: NEEDED Status: Active Protocol: Document 12/06/18 15:40 GGD (Rec: 12/06/18 15:54 GGD [id number]) Subjective Physical Therapy Visit Type Type Treatment Note Visit Start Time 15:07 Visit Stop Time 15:39 Total Visit Minutes 32 Number of ANALYTICAL TECHNICIAN Visits 2 Physical Therapy Visit Comments Patient Comments Pt willing to work with therapy. Therapy Pain Assessment Pain When Pain Assessed At Rest Pain Present Pain Present Denied Pain M4 PT-IP Mobility and Gait Start: 12/05/18 10:58 Freq: NEEDED Status: Active Protocol: Document 12/06/18 15:40 GGD (Rec: 12/06/18 15:54 GGD [id number]) PT-Bed Mobility Assessment Supine to Sit Supine to Sit Standby Assistance,Bedrails Sit to Supine Sit to Supine Standby Assistance,Bedrails PT-Transfer Assessment Sit to and From Stand Sit to and from Stand Contact Guard Assistance, Minimal Assistance,1 Person Assistance,Use of Upper Extremities Equipment Transfer Assistive Device Gait Belt,Front Wheeled Walker Orthotic/Prosthetic Devices or Brace: No Transfers Transfer Destination Bed,Toilet Transfer Ability Level of Assist Contact Guard Assistance, Minimal Assistance,1 Person Assistance,Use of Upper Extremities Gait Assessment Gait Gait Assistance Required: Standby Assistance Distance (Feet) 380 Able to Maintain Weight Bearing Status Yes During Gait Assistive Devices Assistive Device Gait Belt,Front Wheeled Walker Orthotic/Prosthetic Devices or Brace: No Gait Deviations General Gait Pattern Antalgic,Decreased Stride Length,Decreased Feet Clearance Factors Limiting Gait Function Factors Limiting Gait Function Decreased Activity Tolerance, Decreased Strength,Limited Range of Motion,Pain,Poor Balance M5 PT-IP Objective Assessments Start: 12/05/18 10:58 Freq: NEEDED Status: Active Protocol: Document 12/05/18 09:15 AB (Rec: 12/05/18 11:13 AB [id number]) Orientation Orientation/Cognition Level of Alertness Alert Orientation Name,Age,Birthday,Month,Date, Year,Day of Week,Place, Situation Gross Range of Motion Lower Extremity ROM Assessment Left Impaired Impairments limited L knee flexion Strength Lower Extremity Strength Assessment Bilaterally Impaired Hip 3/5 Knee 3+/5 Coordination Assessment Gross Coordination Gross Coordination WNL Muscle Tone Muscle Tone WNL Yes M6 PT-IP Treatment Start: 12/05/18 10:58 Freq: NEEDED Status: Active Protocol: Document 12/06/18 15:40 GGD (Rec: 12/06/18 15:54 GGD [id number]) Physical Therapy Treatment Exercises Exercises Ankle Pumps,Seated Knee Flexion/Extension M7 PT-IP Assessment and Plan Start: 12/05/18 10:58 Freq: NEEDED Status: Active Protocol: Document 12/06/18 15:40 GGD (Rec: 12/06/18 15:54 GGD [id number]) PT Summary Assessment and Plan Summary Assessment Summary Pt able to progress gait distance. She still needs use of bed rail for mobility. She has heavy use of UE for sit <> stand. Frequency of Treatment Frequency Of Treatment Twice a Day Treatment Plan Physical Therapy Treatment Plan Bed Mobility Training,Transfer Training,Gait Training, Therapeutic Exercise,Balance Retraining,Post Op Education, Discharge Planning,Hot or Cold Pack,Neuromuscular Re-ed, Coordination Retraining,Manual Therapy Recommendations To Nursing Amount of Assist Needed 1 Person Assist Discharge Recommendations PT Discharge Recommendations Home with 03/09 Assist,Home Health
[2018-12-06] MEDS: GABAPENTIN 300 MG CAPSULE 900 MG PO (17:06)
--- NOTE | 2018-12-06 17:16 | PM.DS.1 ---
History of Present Illness History of Present Illness Date Patient Seen: 12/06/18 Time Patient Seen: 17:16 Chief complaint: Left Incision and Drainage Wound/Extremity Narrative: Please see HPI previously recorded in the chart. Discharge Providers Provider Date of admission: 12/04/18 15:23 Discharge Date: 12/06/18 Primary care physician: Nigel Hughes MD Consults: 12/04/18 19:54 Consult to Respiratory Therapy Evaluate & Treat Comment: SHANDA, forgot CPAP at home, post I&D knee Physician Instructions: Evaluate and treat 12/04/18 21:01 Consult to Discharge Planning Routine Comment: Consult to Physical Therapy Evaluate & Treat Comment: Physician Instructions: postop TKA protocol Consult to Respiratory Therapy Evaluate & Treat Comment: Physician Instructions: Evaluate and treat Discharge provider: Radha Layne PA-C Summary Hospital Course Discharge Diagnosis: s/p incision and drainage of left knee Hospital Course: The patient is a 73 year old woman who 12 days ago underwent a left total knee replacement. She was discharged 2 days postoperatively and fell directly on her operative knee. There was initially quite a bit of bleeding from the wound but this rapidly decreased and she was eventually discharged with minimal drainage. However the drainage continued unabated until she was seen in clinic. She has agreed to incision and drainage of the hematoma and the wound dehiscence after discussion the risks benefits and alternatives. Risks discussed included but were not limited to potential infection not being addressed, deep venous thrombosis, pulmonary embolism, stroke, myocardial infarction, permanent paralysis and . After obtaining informed consent she was taken to the operating room and underwent incision and drainage of her left knee on 12/04/[address] Crum which she tolerated well with no complications. A hematoma was evacuated and liner change was not required. She was then taken to the acute care floor where she has been progressing well post operatively. She has been maintained on IV Ancef for the duration of her hospitalization. She has mobilized well with physical therapy. Her pain has been well controlled. She is voiding appropriately. She has had minimal output from her drain on POD#2 with <10ml per shift. Drain was discontinued. Final cultures show scant growth of staph epidermidis. She is being discharged with supply of oral Keflex x2 weeks, and Oxycodone. She is medically stable for discharge today. Status at Discharge Cognitive/behavioral status at discharge: oriented Functional status at discharge: uses cane/walker Overall status at discharge: patient is progressing back to baseline Exam Vital Signs (past 8 hours): - 12/06/18 11:45 12/06/18 15:45 Temperature 98.5 F 97.8 F Pulse Rate 79 84 Respiratory Rate 18 17 Blood Pressure 139/69 140/77 Pulse Oximetry 96 97 Oxygen Delivery Method Room Air Oxygen Flow Rate 0 Narrative Exam Narrative: 73 year old female resting comfortably in bed. Alert and oriented in no acute distress. ISMA dressing in place over left knee is on and operational. Patient able to flex/extend the ankle and knee. Sensation intact to light touch. Palpable pedal pulse. Calves soft, compressible bilaterally. Discharge Plan Discharge Plan Patient Disposition: Home Discharge Med Rec/Prescriptions Prescriptions: New oxycodone 5 mg Tablet 5 mg PO Q4-6H PRN (Reason: Pain, Moderate (4-6)) Qty: 40 RF: 0 cephalexin [Keflex] 500 mg capsule 500 mg PO QID 14 Days Qty: 56 RF: 0 Continued acetaminophen [Tylenol Arthritis Pain] 650 mg Tablet Extended Release 1,300 mg PO TID RF: 0 gabapentin 300 mg Capsule 900 mg PO QPM RF: 0 furosemide 20 mg Tablet 20 mg PO QAM RF: 0 ibuprofen 600 mg Tablet 600 mg PO TID RF: 0 losartan 100 mg Tablet 100 mg PO DAILY RF: 0 omeprazole 20 mg Tablet,Delayed Release (Dr/Ec) 20 mg PO BEDTIME RF: 0 aspirin 81 mg Tablet,Delayed Release (Dr/Ec) 81 mg PO BID Qty: 50 RF: 0 docusate sodium [DOK] 100 mg Capsule 100 mg PO BID Qty: 60 RF: 0 liothyronine 5 mcg tablet 10 mcg PO DAILY RF: 0 terbinafine HCl 250 mg tablet 250 mg PO DAILY RF: 0 lidocaine 5 % adhesive patch,medicated 1 patch topical PRN PRN (Reason: pain) RF: 0 gabapentin 300 mg capsule 600 mg PO QAM RF: 0 hydroxyzine HCl 25 mg tablet 25 mg PO QID RF: 0 levothyroxine [Synthroid] 200 mcg tablet 200 mcg PO MOTUWETHFRSA RF: 0 levothyroxine [Synthroid] 200 mcg tablet 400 mcg PO KAM RF: 0 Glucosamine Chondroitin 1 cap PO DAILY RF: 0 cyanocobalamin (vitamin B-12) [Vitamin B-12] 500 mcg Tablet 500 mcg PO DAILY RF: 0 mupirocin 2 % ointment 1 applic TOPICAL BEDTIME RF: 0 multivitamin Tablet,Chewable 1 tab PO DAILY RF: 0 cholecalciferol (vitamin D3) [Vitamin D3] 5,000 unit Tablet 5,000 unit PO DAILY RF: 0 Benefiber And Fiber Gummies 1 dose PO DAILY RF: 0 calcium citrate 1 tab PO QAM RF: 0 Discontinued oxycodone 5 mg Tablet 5 mg PO Q3HR PRN (Reason: Pain, Moderate (4-6)) Qty: 40 RF: 0 Follow up/Referrals: Fabio Crum MD [Physician] - Provider Discharge Instructions Diet: Diet as Tolerated Activity: Weight bear as tolerated. Please use front wheel walker for fall prevention. Cold/Heat Therapy: Apply ice packs as needed. Allow skin to return to room temperature between icing. Skin/Wound/Dressing Care Report to your healthcare provider any signs of infection, such as:: chills, fever, night sweats, unusual drainage and unusual redness Dressing: Dressing should remain in place and will be removed at your 2 week post operative appointment. If dressing becomes saturated please call the office. Discharge Data Primary Care Provider: Nigel Hughes
== END 2018-12-06 19:03 | disposition home or self-care (01) | DRG 920 ==
LOC: OR 15:31 → AC 12-05 09:43
PROVIDERS: Admitting Provider Orthopaedic Surgery; PCP Family Medicine; Visit Provider Orthopaedic Surgery
PROC: 0SRD0JZ Replacement of Left Knee Joint with Synthetic Substitute, Open Approach (ICD-10-PCS; CPT 27447; principal; 2018-12-04 17:30)
DX: T81.32XA Disruption of internal operation (surgical) wound, not elsewhere classified, initial encounter (principal); M96.840 Postprocedural hematoma of a musculoskeletal structure following a musculoskeletal system procedure; Z96.652 Presence of left artificial knee joint
CPT/HCPCS: 87070; 87075; 87077; 87186; 87205; 93971; 94660; 97116; 97161; 97530; J0690; J1100; J1170; J2405; J2704; J3010

== ENCOUNTER → 2020-03-18 14:01 | Outpatient (CLI) | payer MEDICARE, OTHER, SELFPAY ==
[2018-12-04 21:01] VITALS: BMI 42.1
--- NOTE | 2020-03-18 14:03 | DI.MRI.S_ITS ---
PROCEDURE: MR CERVICAL SPINE WO CON INDICATIONS: Spinal stenosis, cervical region TECHNIQUE: Noncontrast sagittal T1 spin echo and T2 fast spin echo, sagittal STIR, foraminal oblique sagittal T2 fast spin echo, and axial gradient echo or T2 fast spin echo through the cervical spine. COMPARISON: [facility] [place], [place], XR CERVICAL SPINE 2 OR 3 VIEWS, 03/08/2020, 14:40. FINDINGS: Image quality: Excellent. Alignment and Curvature: There is loss of normal cervical lordosis. There is mild, grade 1 retrolisthesis of C2 on C3, C3 on C4, C4 on C5. Mild grade 1 anterolisthesis of C6 on C7. Bone Marrow: Marrow demonstrates normal overall signal. Mild reactive signal within the endplates adjacent to the C2-C3, C3-C4, C4-C5, and C5-C6 intervertebral discs. Spinal Cord: Visualized spinal cord has normal size and signal. No cerebellar tonsillar herniation. Paraspinous Soft Tissues: No paravertebral masses. Prevertebral soft tissues are normal in thickness. C2-C3: Moderate disc height loss and desiccation. Mild diffuse disc bulge. Moderate facet and uncovertebral hypertrophy bilaterally. Mild canal stenosis. Moderate right and severe left foraminal stenosis. Left C3 nerve root compression. C3-C4: Moderate disc height loss and desiccation. Moderate diffuse disc bulge with superimposed central disc extrusion which extends inferiorly within the anterior epidural space. Moderate facet and uncovertebral hypertrophy bilaterally. Moderate to severe canal stenosis. Severe bilateral foraminal stenosis with bilateral C4 nerve root compression. C4-C5: Moderate disc height loss and desiccation. Moderate diffuse disc bulge. Moderate facet and uncovertebral hypertrophy. Moderate to severe canal stenosis. Mild cord flattening. Severe bilateral foraminal stenosis with bilateral C5 nerve root compression. C5-C6: Moderate disc height loss and desiccation. Moderate diffuse disc bulge with superimposed broad-based left paracentral and posterolateral protrusion. Moderate facet and uncovertebral hypertrophy bilaterally. Moderate canal stenosis. Severe bilateral foraminal stenosis with bilateral C6 nerve root compression. C6-C7: Moderate disc height loss and desiccation. Mild diffuse disc bulge. Mild facet and uncovertebral hypertrophy bilaterally. Mild canal stenosis. Mild bilateral foraminal stenosis. C7-T1: Mild disc height loss and desiccation. Mild diffuse disc bulge. Mild facet and uncovertebral hypertrophy bilaterally. Mild canal stenosis. Mild bilateral foraminal stenosis. IMPRESSION: 1. Multilevel degenerative disc and facet disease, as well as uncovertebral hypertrophy. 2. Multilevel canal stenoses, worst at C4-C5, where there is mild cord flattening. Moderate to severe canal stenosis at C3-C4. 3. Multilevel foraminal stenoses, worst at C2-C3, C3-C4, C4-C5, and C5-C6, where there is associated intraforaminal nerve root compression. Recommend correlation with clinical symptoms to ascertain relevance of these findings. Dictated by: Monisha Smi M.D. on 03/18/2020 at 16:11 Approved by: Monisha Sim M.D. on 03/18/2020 at 16:17
== END ==
PROVIDERS: PCP Family Medicine; Referring Provider Orthopaedic Surgery Orthopaedic Surgery of the Spine; Visit Provider Orthopaedic Surgery Orthopaedic Surgery of the Spine
DX: M50.31 Other cervical disc degeneration, high cervical region (principal); M48.02 Spinal stenosis, cervical region
CPT/HCPCS: 72141

== ENCOUNTER → 2020-07-20 10:00 | Outpatient (CLI) | payer MEDICARE, OTHER, SELFPAY ==
[2018-12-04 21:01] VITALS: BMI 42.1
--- NOTE | 2020-07-20 10:43 | DI.CT.S_ITS ---
PROCEDURE: CT LUMBAR SPINE WO CON INDICATIONS: Spinal stenosis, lumbar region without neurogenic TECHNIQUE: Noncontrast 3 mm thick sections acquired from the T12 level to the sacrum. Sagittal and coronal reformats were constructed. For radiation dose reduction, the following was used: automated exposure control. COMPARISON: CT lumbar spine 01/04/2017. FINDINGS: Image quality: Excellent. Postsurgical changes of L4-L5 interbody fixation by means of bilateral rods and pedicle screws with interbody device. There is mature osseous fusion across the intervertebral disc space and a amongst the posterior elements at the L4-L5 level. There is unchanged approximately 6 millimeter anterolisthesis of L4 on L5. Alignment is otherwise normal. Vertebral body heights maintained. Regional soft tissues demonstrate no acute abnormality. Aortic atherosclerosis. T12-L1: No spinal canal or neural foraminal stenosis. Ossified thickening of the posterior longitudinal ligament with calcification of the posterior disc annulus flattens the ventral thecal sac but produces no mass effect upon the cord. The neural foramina are widely patent. L1-L2: Diffuse disc bulge flattens the ventral thecal sac. No neural foraminal stenosis. L2-L3: Mild bilateral neural foraminal narrowing due to foraminal components of a diffuse disc bulge. There is flattening of the ventral thecal sac by bulging disc material, along with buckling of the ligamentum flavum and facet hypertrophy contributing to overall mild spinal canal stenosis. L3-L4: Moderate spinal canal stenosis due to a combination of diffuse disc bulge with broad-based posterior disc protrusion and posterior osteophytic ridging of the endplates. Bulky facet hypertrophy and calcified buckling of the ligamentum flavum further contribute to the moderate spinal canal stenosis. Foraminal components of the disc bulge and facet hypertrophy produce moderate bilateral neural foraminal stenosis. There is an element of congenitally short pedicles which contributes to the spinal canal stenosis. L4-L5: Anterolisthesis of L4 on L5 produces a pseudo bulge which flattens the ventral thecal sac. Neural foraminal collapse related to the listhesis produces severe left and moderate right neural foraminal narrowing in conjunction with bulky facet material. L5-S1: Diffuse disc bulge with displacement of the descending S1 nerve roots. Mild right and moderate left neural foraminal narrowing. IMPRESSION: Postsurgical changes of L4-L5 posterior fixation with no acute complicating hardware feature. Unchanged anterolisthesis of L4 on L5 measuring 6 millimeters. Moderate spinal canal stenosis at L3-L4 due to both spondylitic and spinal arthropathic changes including calcified buckling of the ligamentum flavum. Varying degrees of neural foraminal stenosis as described above. Dictated by: Jose Antonio Zhang M.D. on 07/20/2020 at 12:50 Approved by: Jose Antonio Zhang M.D. on 07/20/2020 at 12:54
== END ==
PROVIDERS: PCP Family Medicine; Referring Provider Orthopaedic Surgery Orthopaedic Surgery of the Spine; Visit Provider Orthopaedic Surgery Orthopaedic Surgery of the Spine
DX: M48.061 Spinal stenosis, lumbar region without neurogenic claudication (principal); M43.16 Spondylolisthesis, lumbar region; M47.816 Spondylosis without myelopathy or radiculopathy, lumbar region; M47.817 Spondylosis without myelopathy or radiculopathy, lumbosacral region
CPT/HCPCS: 72131

== ENCOUNTER → 2023-05-24 12:12 | Outpatient (CLI) | payer MEDICARE, OTHER, SELFPAY ==
[2018-12-04 21:01] VITALS: BMI 42.1
--- NOTE | 2023-05-24 12:13 | DI.CT.S_ITS ---
PROCEDURE: CT LUMBAR SPINE WO CON INDICATIONS: Spinal stenosis, lumbar region TECHNIQUE: Noncontrast 3 mm thick sections acquired from the T12 level to the sacrum. Sagittal and coronal reformats were constructed. For radiation dose reduction, the following was used: automated exposure control. COMPARISON: [facility], CT, CT LUMBAR SPINE WO CON, 07/20/2020, 10:12. FINDINGS: Image quality: Excellent. Bones: Posterior fusion instrumentation at L4-5 with interbody spacer. No hardware complication. Mild dextrocurvature of the lumbar spine, centered at L3-4. Grade 1 anterolisthesis of L4 on L5, and L5 on S1. Vertebral body height of the lumbar spine are well maintained. Multilevel, moderate degenerative disc disease of the lumbar spine. T12-L1: Large posterior disc osteophyte complex resulting in mild osseous central canal stenosis. No neural foraminal stenosis. L1-L2: Mild bilateral facet arthropathy. No central canal stenosis. No neural neural foraminal stenosis. L2-L3: Mild bilateral facet arthropathy. Calcification of the ligamentum flavum. Mild osseous central canal stenosis. Moderate bilateral neural neural foraminal stenosis. L3-L4: Mild bilateral facet arthropathy. Mild osseous central canal stenosis. Mild bilateral neural foraminal stenosis. L4-L5: Posterior disc uncovering. Left laminectomy. No osseous central canal stenosis. Severe bilateral neural foraminal stenosis. L5-S1: Severe bilateral facet arthropathy. Right laminotomy. No central canal stenosis. Mild bilateral neural foraminal stenosis. Visualized sacrum is unremarkable. Soft tissues: Right hydronephrosis versus parapelvic cysts, incompletely visualized but is grossly unchanged from prior exam. IMPRESSION: 1. Posterior fusion instrumentation at L4-5 with interbody spacer. Left laminectomy at L4-5 and right laminotomy at L5-S1. 2. Multilevel degenerative changes of the lumbar spine, most pronounced at L4-5, where there is severe bilateral neural neural foraminal stenosis, grossly unchanged from prior exam. 3. Right hydronephrosis versus parapelvic cysts, unchanged from prior exam, and visualized. Dictated by: Ronel Saldivar M.D. on 05/29/2023 at 11:35 Approved by: Ronel Saldivar M.D. on 05/29/2023 at 11:47
== END ==
LOC: CT 12:12
PROVIDERS: PCP Family Medicine; Referring Provider Orthopaedic Surgery Orthopaedic Surgery of the Spine; Visit Provider Orthopaedic Surgery Orthopaedic Surgery of the Spine
DX: M48.061 Spinal stenosis, lumbar region without neurogenic claudication (principal); M48.07 Spinal stenosis, lumbosacral region; M47.816 Spondylosis without myelopathy or radiculopathy, lumbar region; M47.817 Spondylosis without myelopathy or radiculopathy, lumbosacral region; Z98.1 Arthrodesis status
CPT/HCPCS: 72131

== ENCOUNTER → 2023-05-30 16:06 | Outpatient (CLI) | payer MEDICARE, OTHER, SELFPAY ==
[2018-12-04 21:01] VITALS: BMI 42.1
[2023-05-30 17:03] LABS: Add Manual Diff / Slide Review NO; Basophils Absolute Auto 0 /uL (0-100); Basophils Percent Auto 0.5 % (0-2); Eosinophils Absolute Auto 200 /uL (0-450); Eosinophils Percent Auto 1.9 % (2-4); Hematocrit 41.2 % (36-46); Hemoglobin 13.7 g/dL (12.0-16.0); Lymphocytes Absolute Auto 2200 /uL (1100-4500); Lymphocytes Percent Auto 27.3 % (25-40); Mean Corpuscular HGB Conc 33.2 % (30-36); Mean Corpuscular Hemoglobin 28.6 PG (26-34); Mean Corpuscular Volume 86.1 fL (80-100); Monocytes Absolute Auto 800 /uL (0-900); Monocytes Percent Auto 9.2 % (3-14); Neutrophils Absolute Auto 5000 /uL (1500-7000); Neutrophils Percent Auto 61.1 % (50-75); Platelet Count 263 X10^3/uL (150-400); Red Blood Cell Count 4.79 X10^6/uL (4.0-5.2); Red Cell Distribution Width 15.7 % (11.6-14.8); White Blood Cell Count 8.2 X10^3/uL (4.5-11.0)
[2023-05-30 17:21] LABS: BUN Creatinine Ratio 19.3 (6-22); Blood Urea Nitrogen 17 mg/dL (7-17); Calcium 9.3 mg/dL (8.4-10.2); Carbon Dioxide 27 mmol/L (22-32); Chloride 104 mmol/L (98-107); Estimated Glomerular Filt Rate > 60 mL/min (>60); Glucose 97 mg/dL (80-110); HEMOLYSIS < 15 (0-50); Potassium 4.2 mmol/L (3.4-5.1); Sodium 136 mmol/L (137-145)
[2023-05-30 18:00] LABS: Hemoglobin A1C% w Est Avg Glu 6.3 % (4.0-6.0)
== END ==
PROVIDERS: PCP Family Medicine; Referring Provider Orthopaedic Surgery Orthopaedic Surgery of the Spine; Visit Provider Orthopaedic Surgery Orthopaedic Surgery of the Spine
DX: Z01.818 Encounter for other preprocedural examination (principal); R73.9 Hyperglycemia, unspecified; Z01.812 Encounter for preprocedural laboratory examination
CPT/HCPCS: 36415; 80048; 83036; 85025; 93005

== ENCOUNTER 2023-06-26 08:27 | Inpatient (IN) | payer MEDICARE, OTHER, SELFPAY ==
[2018-12-04 21:01] VITALS: BMI 42.1
[2023-06-20 08:48] VITALS: BMI 48.1
[2023-06-26] VITALS (18 sets, daily range): BP systolic 138–188; BP diastolic 62–95; PULSE 73–98; RESP 14–27; TEMP 36.1–37.1; O2SAT 89–98; BMI 48.7
--- NOTE | 2023-06-26 | DI.RAD.S_ITS ---
PROCEDURE: XR LUMBAR SPINE 2-3V INDICATIONS: TLIF L5-S1 TECHNIQUE: Intraoperative views of the lumbar spine were acquired. COMPARISON: None. FINDINGS: Bones: Intraoperative views during L5-S1 TLIF. IMPRESSION: Intraoperative views during L5-S1 TLIF Dictated by: Silvio Phelan M.D. on 06/26/2023 at 15:43 Approved by: Silvio Phelan M.D. on 06/26/2023 at 15:43
[2023-06-26] MEDS: LACTATED RINGERS 1,000 ML 42 ML IV (09:25)
[2023-06-26] MEDS: SODIUM CHLORIDE 0.9% FLUSH 10 ML IV (09:26)
--- NOTE | 2023-06-26 09:59 | PM.PREOP ---
Pre-operative Note Interval Note History & Physical reviewed/Exam performed by Physician: Yes Changes to H&P: No
[2023-06-26] MEDS: CEFAZOLIN VIAL 3 GM in SODIUM CHLORIDE 0.9% 100 ML IV ×2 (10:50→18:42)
[2023-06-26] MEDS: BUPIVACAINE 0.25% (PF) 60 ML, EPINEPHrine 0.15 MG INJ (11:42)
[2023-06-26] MEDS: BUPIVACAINE LIPOSOME 266 MG/20 ML VIAL INJ (11:43)
--- NOTE | 2023-06-26 14:13 | P.OP_ITS ---
Operative Date/Time/Diagnoses Date of procedure: 06/26/23 Time of procedure: 11:00 Pre-op diagnosis: 1. L5-S1 anterolisthesis 2. L5-S1 bilateral foramen stenosis 3. L4-5 history of fusion with foramen stenosis 4. Lumbar radiculopathy Post-op diagnosis: same Procedure & Clinicians Procedure: 1. L5-S1 posterolateral and posterior interbody fusion 2. L5-S1 posterior interbody cage placement 3. L4-5 posterior non-segmental instrumentation removal 4. L4-5 revision laminectomy with exploration of fusion 5. L5-S1 posterior segmental instrumentation with pedicle screw placement 6. [place] of bone marrow from iliac crest through a separate incision 7. Utilization of microsurgical technique and operating microscope 8. Utilization of robotic assisted navigation Same procedure as scheduled: Yes Indications: Patient has been having chronic back pain and worsening lumbar radiculopathy. Patient had a previous L4-5 fusion with posterior instrumentation. Patient was found to have L5-S1 anterolisthesis bilateral neuroforaminal stenosis with advanced degenerative changes correlating with her current symptoms of back pain and bilateral radiculopathy. Patient failed multiple conservative management with worsening pain weakness and numbness in her lower extremity. Patient has been having difficulty performing activity of daily living. After discussing risks benefits of treatment options, patient elected proceed with surgery. Surgeon: Paddy Huff Transplanter Orchid: Anna Ferrera Click Yes if Unassisted: No Anesthesia Type: General Operative Notes Closure Type: primary Specimen(s): none sent Prosthetic devices, grafts, tissues, transplants, or devices: Globus CREO MIS screws, Rise cage Applied: catheter Estimated Blood Loss (mL): 200 Blood products transfused: none Procedure in detail: Patient was seen in the preoperative area. Risks and benefits of the surgery was discussed with the patient. Informed consent was obtained from the patient and placed in the chart. Surgical site was marked. Patient was taken to the operative room. General anesthesia was administered. Prophylactic antibiotic was given to the patient less than 30 min before the incision was made. Patient was placed into a prone position on the Hollis table. Patient's back was then prepped and draped in the sterile fashion. Time-out was performed at this time. After patient was prepped and draped, patient's PSIS was palpated and marked bilaterally. Small 1 cm incision was made over the PSIS for placement of the reference probes. Two trocar was placed into the PSIS 1 on each side. The reference probe was attached to the trocar of the reference apparatus. At this time the C-arm imaging was used to confirm AP and lateral of L4, L5, and S1 vertebrae and merged the C-arm imaging using the [employer] robotic navigation system with the CT of the lumbar spine. After successful merging was completed and confirmed, skin marker was used to vicente out the skin incision using the [employer] robotic arm. Bilateral incision was made at this time. Using patient's previous scar incision was made over the L4-5 interval at the midline. Fascia was incised in line with skin incision. Patient's previously placed hardware over the L4-5 level was identified on the right side of her spine by dissecting down to the level the hardware using a Bovie and a Ayala. The locking caps which was removed using universal hardware removal screwdriver. The locking joaquim was then removed from the tulips of the pedicle screws using a Michael. The pedicle screws were then removed using the screwdriver. The screws were found to have good purchase. The left-sided L4-5 cortical screws were not removed since his L5-S1 pedicle screws could be inserted without interfering with the previously placed hardware. This was pre planned on the [employer] robotic system was found to be a reasonable plan before this was executed. Pre templated trajectory was used and guided using the [employer] navigation system for left L5 and S1 pedicle screws and right L5, and S1 pedicle screws placement. This was done by using the robotic arm to guide the high-speed bur to make a cortical entry point. Next a drill was placed also using the robotic arm and guided using the navigation system drilling partially through bilateral L5, S1 pedicles. Next L5, S1 pedicle screws it was pre templated and measured was placed onto the power utility driver and inserted into the pedicles bilaterally. After all 8 screws were placed C-arm imaging was taken of both AP and lateral to confirm the placement. Excellent placement of the screws were confirmed and a matched precisely with the pre planned screw placement using the navigation system. MARs retractor was inserted using [employer] guidence. Globus MARS retractors was placed inside the incision and docked onto the L5 lamina. Using microsurgical technique and operating microscope, a L5 laminectomy and L5-S1 facetectomy was performed using a Kerrison rongeur. Patient was found have s evere lateral recess and neural foramen stenosis which was fully decompressed after the laminectomy facetectomy. The laminectomy and facetectomy was performed in order to decompress patient's cauda equina as well as the nerve roots exiting at the L5-S1 level. More than 75% of the facets were removed during the process of decompression rendering L5-S1 level grossly unstable and required a fusion procedure at the same time. The disc space at L5-S1 was identified, and a total diskectomy was performed at L5-S1 level. The endplates were decorticated using a rasp and shaver. The total diskectomy and decortication was performed at L5-S1 level in order to to accomplish a L5-S1 fusion. The local bone from the laminectomy and facetectomy was saved for local bone grafting. After the total diskectomy and decortication was completed, Viacel bone graft material was combined with local bone that was harvested earlier. At this time, a separate skin is incision was made over the iliac crest. A Jamshidi needle was inserted into the iliac crest through a separate skin incision. 5 cc of bone marrow aspiration was obtained through the separate skin incision using a Jamshidi needle from the iliac crest. The bone marrow aspiration was combined with local bone and the [employer] bone grafting material. The bone grafting material was placed into the L5-S1 interbody space along with a expandable cage. The cage was expanded to its maximum height using the torque limiting screwdriver. The disc preparation as well as the cage insertion were also performed under navigation guidance. After the cage was placed, AP and lateral C-arm imaging was taken to confirm placement of the cage and excellent position was confirmed. The fusion mass on the right side of L4-5 was exposed by performing a right- sided hemilaminectomy at L4-5 level. The hemilaminectomy was performed using the Kerrison rongeur to undercut the lamina as well removing additional epidural scar tissue for purpose of decompressing the epidural space. The fusion mass was explored and was found to have solid fusion at L4-5 level. Globus MARS retractor was inserted and docked onto the L5-S1 posterolateral gutter. Using the power drill, posterior-lateral decortication was performed at L5-S1 level until bleeding cortical bone was identified. The remaining bone grafting material was placed into the L5-S1 posterior lateral gutter he order to accomplish posterolateral fusion at the L5-S1 level. At this time the tulips were attached to the L5 and S1 pedicle screw shanks. This was done in L5 S1 pedicle screws bilaterally. After measuring the length of the rods, they were inserted into the tulips of the pedicle screws and locked in place using locking caps and torque limiting screwdriver bilaterally. Total 4 caps and 2 titanium rods was used in order to complete the posterior instrumentation construct. After all the hardware was placed, and confirmed with AP and lateral C-arm imaging, the wound was then irrigated with sterile normal saline and packed with Ray-Julio gauze for 3 min to accomplish hemostasis. After the gauze was removed the deep fascia was closed with #1 Vicryl suture. The subcutaneous layer was closed with 2-0 Vicryl. The skin was closed with skin pennie. Patient tolerated the procedure well. There were no complications. Neuro monitoring system was used to monitor patient's neurologic status throughout entire procedure. There was no disturbance of the neural monitoring signals throughout the case. The Operation could not have been safely performed without compromising the technical result or length of the procedure, without the assistance of a skilled salesperson surgical appliances. The salesperson surgical appliances was medically necessary for proper positioning, retraction and manipulation of instruments, proper exposure, surgical preparation, and manipulation of tissue. Complications: none Post-operative Condition: stable Disposition: PACU Plan for aftercare: Admit to inpatient hospital
[2023-06-26] MEDS: ONDANSETRON 4 MG/2 ML INJ IV (14:45)
[2023-06-26] MEDS: OXYCODONE IR 5 MG TABLET PO (14:45)
--- NOTE | 2023-06-26 15:13 | PC.NURSE ---
Day shift: In room from PACU at approx 1505. VS WNL. Oriented to room and call light. Tolerating SCD's. Reports 4/10 back pain and is ok with that pain number. Agrees to not get OOB w/o help from staff. Spouse at bedside for support. Denies any nausea. CMS ok and PPP.
[2023-06-26] MEDS: LACTATED RINGERS 1,000 ML 125 ML IV (15:54)
--- NOTE | 2023-06-26 15:59 | OT.IPNOTE ---
Attempted OT eval and pt states not ready as just got up to the floor an hour again. To check on the pt tomorrow.
[2023-06-26] MEDS: OXYCODONE IR 10 MG TABLET PO ×2 (16:57→21:46)
[2023-06-26] MEDS: PANTOPRAZOLE DR 20 MG TABLET 40 MG PO (21:43)
[2023-06-26] MEDS: DIVALPROEX ER 250 MG TAB PO (21:43)
[2023-06-26] MEDS: DOCUSATE 100 MG CAPSULE PO (21:43)
[2023-06-26] MEDS: VERAPAMIL 80 MG TABLET PO (21:44)
[2023-06-26] MEDS: SENNOSIDES 8.6 MG TABLET 17.2 MG PO (21:45)
[2023-06-26] MEDS: GABAPENTIN 600 MG TABLET PO (21:45)
[2023-06-26] MEDS: ACETAMINOPHEN 325 MG TABLET 650 MG PO (21:45)
[2023-06-26] MEDS: ONDANSETRON 4 MG ODT SL (21:53)
[2023-06-27] VITALS (7 sets, daily range): BP systolic 133–146; BP diastolic 54–72; PULSE 74–84; RESP 16–18; TEMP 36.6–37.1; O2SAT 90–96
[2023-06-27] MEDS: OXYCODONE IR 10 MG TABLET PO ×3 (00:45→08:37)
[2023-06-27] MEDS: CEFAZOLIN VIAL 3 GM in SODIUM CHLORIDE 0.9% 100 ML IV (03:36)
[2023-06-27 04:52] LABS: Hematocrit 36.8 % (36-46); Hemoglobin 12.2 g/dL (12.0-16.0)
--- NOTE | 2023-06-27 06:35 | PC.NURSE ---
Patient refused Levothyoxine at this time, states she takes it later with her other meds. RN Explained that it's recommended to take on an empty stomach, patient continued to refuse it at this time.
--- NOTE | 2023-06-27 07:26 | P.DS_ITS ---
History of Present Illness History of Present Illness Date Patient Seen: 06/27/23 Time Patient Seen: 07:26 Chief complaint: TLIF Narrative: Operative Date/Time/Diagnoses Date of procedure: 06/26/23 Time of procedure: 11:00 Pre-op diagnosis: 1. L5-S1 anterolisthesis 2. L5-S1 bilateral foramen stenosis 3. L4-5 history of fusion with foramen stenosis 4. Lumbar radiculopathy Post-op diagnosis: same Procedure & Clinicians Procedure: 1. L5-S1 posterolateral and posterior interbody fusion 2. L5-S1 posterior interbody cage placement 3. L4-5 posterior non-segmental instrumentation removal 4. L4-5 revision laminectomy with exploration of fusion 5. L5-S1 posterior segmental instrumentation with pedicle screw placement 6. [place] of bone marrow from iliac crest through a separate incision 7. Utilization of microsurgical technique and operating microscope 8. Utilization of robotic assisted navigation Same procedure as scheduled: Yes Indications: Patient has been having chronic back pain and worsening lumbar radiculopathy. Patient had a previous L4-5 fusion with posterior instrumentation. Patient was found to have L5-S1 anterolisthesis bilateral neuroforaminal stenosis with advanced degenerative changes correlating with her current symptoms of back pain and bilateral radiculopathy. Patient failed multiple conservative management with worsening pain weakness and numbness in her lower extremity. Patient has been having difficulty performing activity of daily living. After discussing risks benefits of treatment options, patient elected proceed with surgery. Surgeon: Paddy Huff [employer] Brokerage Manager: Anna Ferrera Click Yes if Unassisted: No Anesthesia Type: General Operative Notes Closure Type: primary Specimen(s): none sent Prosthetic devices, grafts, tissues, transplants, or devices: Globus CREO MIS screws, Rise cage Applied: catheter Estimated Blood Loss (mL): 200 Blood products transfused: none Discharge Providers Provider Date of admission: 06/26/23 08:27 Primary care physician: Nigel Hughes MD Consults: 06/26/23 15:29 Consult to Occupational Therapy Evaluate & Treat Comment: Physician Instructions: Evaluate and treat Consult to Physical Therapy Evaluate & Treat Comment: Physician Instructions: Evaluate and Treat Discharge provider: Harshad Ayala PA-C Summary Hospital Course Discharge Diagnosis: Status post multi-level TLIF Hospital Course: Multi modal pain control. PT. Bilateral lower extremity U/S performed due to posterior thigh tenderness. Status at Discharge Cognitive/behavioral status at discharge: oriented Functional status at discharge: uses cane/walker Overall status at discharge: patient is back to baseline Time Spent with Patient Time spent: Less than 30 minutes Exam Vital Signs (past 8 hours): - 06/27/23 01:40 06/27/23 04:51 Temperature 98.6 F 98.6 F Pulse Rate 84 80 Respiratory Rate 16 16 Blood Pressure 140/72 138/66 Pulse Oximetry 94 96 Oxygen Flow Rate 2 2 Oxygen Delivery Method Nasal Cannula Oxygen Flow Rate 2 Narrative Exam Narrative: Patient is found resting comfortably in bed with SCD's on. Dressing appears to be dry and well maintained. No new complaints of numbness or tingling in her lower extremities. Sensation intact to light touch to bilateral lower extremities. She does elicit pain along the posterior right thigh and knee to deep palpation and pain to compression of her posterior left calf. Able to flex and extend at the EHL against resistance bilaterally. Able to dorsiflex and plantarflex against resistance at bilateral ankles. Objective Labs 06/27/23 04:40 Labs: Laboratory Results - last 24 hr 06/27/23 04:40 Hgb 12.2 Hct 36.8 PFSH Medical History (Updated 06/20/23 @ 09:28 by Sima Leija RN) History of COVID-19 (03/2023) Breast cancer, left (03/2022) PVC's (premature ventricular contractions) Hearing impaired Eczema Fragile skin Arthritis Osteoarthritis Ankle fracture, left (~2007) Bilateral knee pain Hypothyroid Edema HTN (hypertension) Fibromyalgia Sleep apnea Surgical History (Updated 06/20/23 @ 09:19 by Sima Leija RN) History of lumpectomy of left breast (~06/2022) Hx of left breast biopsy (2022) Hx of bilateral cataract extraction (2019) History of total left knee replacement (11/24/18) History of total right knee replacement (07/01/18) History of lumbar fusion (~2014) Hx of lumbar discectomy (~2012) History of lumbar laminectomy Hx of tubal ligation History of 3 sections S/P hernia surgery Hx of cholecystectomy (~09/2006) Hx of bariatric surgery (~01/2014) Social History household members: spouse Smoking Status: Never smoker alcohol intake: never Discharge Assessment & Plan Assessment and Plan Assessment: Status post multi-level TLIF. Discharge Plan Discharge orders & Medications Prescriptions: No Action acetaminophen [Tylenol Arthritis Pain] 650 mg Tablet Extended Release 1,300 mg PO TID Patient Comments: not on home medication list provided 11/26/18 gabapentin 300 mg Capsule 600 mg PO TID Patient Comments: home med list does not have last fill dose furosemide 20 mg Tablet 20 mg PO QAM Patient Comments: not currently taking. 11/26/18 ibuprofen 600 mg Tablet 600 mg PO TID Patient Comments: not on home medication list provided 11/26/18 losartan 100 mg Tablet 50 mg PO DAILY omeprazole 20 mg Tablet,Delayed Release (Dr/Ec) 40 mg PO BEDTIME liothyronine 5 mcg tablet 40 mcg PO DAILY Patient Comments: not on home med list 11/26/18 current RX fill Rx Instructions: TAKE 2 TABLETS BY MOUTH ONCE DAILY BEFORE BREAKFAST lidocaine 5 % adhesive patch,medicated 1 patch topical PRN PRN (Reason: pain) levothyroxine [Synthroid] 200 mcg tablet 200 mcg PO MOTUWETHFRSA levothyroxine [Synthroid] 200 mcg tablet 400 mcg PO KAM multivitamin Tablet,Chewable 1 tab PO DAILY cholecalciferol (vitamin D3) [Vitamin D3] 5,000 unit Tablet 5,000 unit PO DAILY calcium citrate 1 tab PO QAM exemestane 25 mg Tablet 25 mg PO DAILY Rx Instructions: must administer after a meal nitroglycerin 0.4 mg Tablet, Sublingual 0.4 mg SUBLINGUAL Q5-15M PRN (Reason: Chest Pain) Rx Instructions: do not exceed 3 doses per episode verapamil 240 mg Tablet Extended Release 240 mg PO BEDTIME divalproex 250 mg Tablet Extended Release 24 Hr 250 mg PO BEDTIME zoledronic acid [Zometa] 4 mg/5 mL Solution 4 mg IV Q6M Rx Instructions: administer over at least 15 mins losartan 50 mg tablet 50 mg PO DAILY verapamil 180 mg tablet extended release PO triamcinolone acetonide 0.1 % cream 1 applic topical Follow up/Referrals: Nigel Hughes MD [Primary Care Provider] - Paddy Huff MD [Physician] - 07/12/23 2:00 pm (Follow up w/ Laron Ayala PA-C, at [facility] office in [place].) Discharge Data Primary Care Provider: Nigel Hughes
--- NOTE | 2023-06-27 07:58 | DI.US.S_ITS ---
PROCEDURE: US PERIPH VENOUS LOW EXTREM BI INDICATIONS: DVT TECHNIQUE: Real-time imaging, as well as color and pulse Doppler interrogation, were performed of the deep veins of both legs from the inguinal ligament to the popliteal fossa, with documentation of the visualized calf veins. COMPARISON: None. FINDINGS: Right: The common femoral, femoral, popliteal, and the visualized calf veins are normally compressible, and free of intraluminal thrombus. Color and pulse Doppler demonstrate normal phasic intravascular flow. There is normal augmentation response to distal compression maneuver. Left: The common femoral, femoral, popliteal, and the visualized calf veins are normally compressible, and free of intraluminal thrombus. Color and pulse Doppler demonstrate normal phasic intravascular flow. There is normal augmentation response to distal compression maneuver. Examination was limited by body habitus. IMPRESSION: No findings of deep venous thrombosis in either lower extremity. Dictated by: Reynaldo Quintero M.D. on 06/27/2023 at 10:40 Approved by: Reynaldo Quintero M.D. on 06/27/2023 at 10:40
[2023-06-27] MEDS: CHOLECALCIFEROL (VITAMIN D3) 5,000 UNIT TABLET 5000 UNIT PO (08:37)
[2023-06-27] MEDS: DOCUSATE 100 MG CAPSULE PO ×2 (08:37→21:21)
[2023-06-27] MEDS: LOSARTAN 50 MG TABLET PO (08:37)
[2023-06-27] MEDS: MULTIVITAMIN 1 TABLET 1 TAB PO (08:37)
[2023-06-27] MEDS: GABAPENTIN 600 MG TABLET PO ×3 (08:37→21:22)
[2023-06-27] MEDS: FUROSEMIDE 20 MG TABLET PO (08:37)
[2023-06-27] MEDS: LEVOTHYROXINE 100 MCG TABLET 200 MCG PO (10:08)
[2023-06-27] MEDS: LIOTHYRONINE 5 MCG TABLET 40 MCG PO (10:08)
--- NOTE | 2023-06-27 10:33 | CM.DANOTE ---
DCP Assessment Note Pt is a 78yo female, resident of [place], is here s/p [place] Fusion. Pt lives in a house with her , Jaylan and their cat, Marilu. Pt's Primary Care Provider is Dr. Nigel Hughes and insurance is Medicare and [employer]. Reviewed chart and team rounds for pt's medical status and initial discharge needs. DCP met w/patient at bedside; introduced self and role. Pt was found in bed, alert and oriented, cooperative with assessment. Pt confirmed living situation and good support in . Pt expressed preference in returning home as soon as today but does not want to mclean it as she reports she is feeling groggy from the medication. DCP agreeable to working with therapies and following their recommendations. Plan: Awaiting PT/OT evaluations and recommendation for evolving discharge plans. CM team will plan to follow clinical course closely for assessment of need and coordination of discharge plan. ZEKE Dunn Discharge Planning/Care Management Discharge Planning Assessment Assigned Industrial Trainer CARON Pacheco DPOA/Assigned Designee Name Jaylan Moore, Spouse Contact Information [phone] Advance Directives? Yes Advance Directives on File No History Provided By Patient,Medical Record Expected Length of Stay 1 Has Patient been admitted in last 30 No days? Prior Living Arrangements House Household Members spouse Type of transporation used prior to Relies on Others admit Comment Pt is hopeful that after this surgery she will feel stronger to drive again. For now, she relies on her , Fabian, for transportation. Independent with ADL's Yes Is patient alert and oriented? Yes Caregiver for Another No DME Already Rented / Owned FWW / Walker,Other Comment CPAP Hearing Aid Patient/Family Preference Home with Home Health Discharge Plan Home with Home Health Transportation Arrangement Spouse to provide transport. If patient plan is home with home health Not needed. : Has signed face to face form been completed? Whiteboard Updated in Patient Room with Yes name and ext. # of Industrial Trainer Comment [phone] Please Provide Date Initial DC 06/27/23 Assessment Was Performed Next Review Type Continued Stay Review
--- NOTE | 2023-06-27 10:39 | PT.IIE ---
Current Diagnoses Spondylolisthesis, lumbosacral region (06/26/23) Spinal stenosis, lumbar region without neurogenic claudication (06/26/23) Arthrodesis status (06/26/23) Surgery Performed Operation Date: 06/26/23 10:15 Actual Procedures p L4-5 lumbar HWR, exploration of fusion, repeat laminectomy, L5-S1 TLIF -Rose - Paddy Huff MD Surgical History (Last Updated 06/20/23 @ 09:19 by Sima Leija RN) History of 3 sections History of lumbar fusion (~2014) History of lumbar laminectomy History of lumpectomy of left breast (~06/2022) History of total left knee replacement (11/24/18) History of total right knee replacement (07/01/18) Hx of bariatric surgery (~01/2014) Hx of bilateral cataract extraction (2019) Hx of cholecystectomy (~09/2006) Hx of left breast biopsy (2022) Hx of lumbar discectomy (~2012) Hx of tubal ligation S/P hernia surgery Medical History (Last Updated 06/20/23 @ 09:28 by Sima Leija RN) Ankle fracture, left (~2007) Arthritis Bilateral knee pain Breast cancer, left (03/2022) Eczema Edema Fibromyalgia Fragile skin Hearing impaired History of COVID-19 (03/2023) HTN (hypertension) Hypothyroid Osteoarthritis PVC's (premature ventricular contractions) Sleep apnea Physical Therapy Inpatient Evaluation/Re-Eval M1 PT/OT-IP Prior Functional Status Start: 06/27/23 10:54 Freq: NEEDED Status: Active Protocol: Document 06/27/23 10:39 DLM (Rec: 06/27/23 11:17 DLM [id number]) Medical Review Prior Functional Status Medical History Reviewed Yes Diet/Fluid Consistency Regular Communication WFL Mobility and Gait Spouse helps her get into bed. She reports she likes to walk without device. She has a FWW and 4WW to use at home as needed. Her back pain limits her activity. Activities of Daily Living and IADL's Spouse helps as needed. She stands for her shower. She has hx of urinary incontinence. She wears depends at home. Has hearing aide. Social History Household Members spouse Living Arrangements House Number of Floors (Floors) One Floor Number of Stairs To Enter/Railing? ramp Home Environment Standard Height Toilet,Walk in Shower Home Equipment Front Wheel Walker,Four Wheel Walker,Straight Cane,Raised Toilet Seat w/Armrests,Shower Seat with Backrest,Hand Held Shower,Leg Personal Security Specialist,Long Handled Shoe Horn,Chuck Tender,Sock Aid, Grab Bars In Shower Employment Status Retired Additional Social History Comment tall bed M2 PT-IP Current Condition Start: 06/27/23 10:54 Freq: NEEDED Status: Active Protocol: Document 06/27/23 10:39 DLM (Rec: 06/27/23 11:17 [facility] [id number]) Physical Therapy Current Condition Current Condition Evaluation Date 06/27/23 Treatment Diagnosis TLIF L5-S1, L4-5 hardware removal w/repeat lami Onset Date 06/26/23 M3 PT-IP Subjective Start: 06/27/23 10:54 Freq: NEEDED Status: Active Protocol: Document 06/27/23 10:39 DLM (Rec: 06/27/23 11:17 [facility] [id number]) Subjective Physical Therapy Visit Type Type Initial Evaluation Visit Start Time 10:05 Visit Stop Time 10:39 Notes 34 minutes Number of CRIME SCENE INVESTIGATOR Visits 0 Physical Therapy Visit Comments Patient Comments She reports her pain is controlled this morning. She describes mild light- headedness with initial sitting up. She does not feel ready to go home yet. She reports she does not like to use ice on her back. Patient Goals Her goals is to go home Therapy Pain Assessment Pain When Pain Assessed At Rest Pain Present Pain Present Pain Reported Location Bilateral Back Intensity 2 Scale Used Numeric (0 - 10) Description Aching,Tender,With Movement Pain Behaviors Guarding Pain Management Techniques Re-positioning,Timing of Activity with Medications M4 PT-IP Mobility and Gait Start: 06/27/23 10:54 Freq: NEEDED Status: Active Protocol: Document 06/27/23 10:39 DLM (Rec: 06/27/23 11:17 DL [id number]) PT-Bed Mobility Assessment Rolling Type of Rolling Log Rolling,Roll to Right Level of Assist Minimal Assistance,Moderate Assistance Supine to Sit Supine to Sit Minimal Assistance,Moderate Assistance,Bedrails Scooting Scooting to Edge of Bed Minimal Assistance PT-Transfer Assessment Sit to and From Stand Sit to and from Stand Minimal Assistance,Use of Upper Extremities Equipment Transfer Assistive Device Gait Belt,Front Wheeled Walker Transfers Transfer Destination Chair Transfer Technique Stand Step Pivot Transfer Ability Level of Assist Contact Guard Assistance, Minimal Assistance,Use of Upper Extremities Comments Mobility Comments Pt very close to the edge of the bed during rolling with concern she would fall off the edge but pt reports this is how she does it at home. Pt had difficulty pushing up with right UE to go from supine to sitting. All mobility is slow today. Pt has bush catheter in place and is reluctant to have removed due to hx of incontinence. Pt up to a chair today with call light close. Gait Assessment Comments Gait Comments Pt declined gait this visit. Pt up to chair and she reports that is all she can do at this time. Stair Climbing Assessment Comments Stair Climbing Comments ramp at home PT-Balance Assessment Sitting Balance and Reactions Static Sitting Balance Ability Fair Dynamic Sitting Balance Ability Fair Standing Balance and Reactions Static Standing Balance Ability Fair Dynamic Standing Balance Ability Fair Device Used FWW Comments Other Balance Tests/Deviations/Treatment She had posterior lean with : initial sitting with slow improvement but it did resolve with time and once she had FWW in front of her. M5 PT-IP Objective Assessments Start: 06/27/23 10:54 Freq: NEEDED Status: Active Protocol: Document 06/27/23 10:39 DLM (Rec: 06/27/23 11:17 DLM [id number]) Orientation Orientation/Cognition Level of Alertness Alert Orientation Name,Age,Birthday,Month,Date, Year,Day of Week,Place, Situation Language Function Ability Hard of Hearing Safety Awareness Decreased Safety Awareness Memory Description No Deficits Noted Comments she has hearing aid in place Gross Range of Motion Upper Extremity ROM Assessment Within Functional Limits Lower Extremity ROM Assessment Within Functional Limits Strength Upper Extremity Strength Assessment Right Impaired Shoulder hx rotator cuff injury with intermittent pain and functional weakness Lower Extremity Strength Assessment Right Impaired Hip 4/5 Knee 4/5 Ankle 5/5 Coordination Assessment Gross Coordination Gross Coordination WNL Assessment Coordination Comments mild decrease in speed of movements Sensation Assessment Sensation Gross Sensation Right LE Impaired,Left LE Impaired Light Touch Intact Sensation Description Numbness Comments Sensation Comments she reports right LE is worse than left, has a hx of numbness, she does not report it is any worse after surgery Muscle Tone Muscle Tone WNL Yes M6 PT-IP Treatment Start: 06/27/23 10:54 Freq: NEEDED Status: Active Protocol: Document 06/27/23 10:39 DLM (Rec: 06/27/23 11:17 DLM [id number]) Physical Therapy Treatment Exercises Exercises Ankle Pumps Education Education Provided Precautions,Post-Op Packet, Safety Other Treatments Other Treatment Performed educated pt in spine precautions and to decrease her fall risks started ankle pumps and seated knee flex/ext exercises in sitting M7 PT-IP Assessment and Plan Start: 06/27/23 10:54 Freq: NEEDED Status: Active Protocol: Document 06/27/23 10:39 DLM (Rec: 06/27/23 11:17 DL [id number]) PT Summary Assessment and Plan Potential Rehabilitation Potential Good Status of Condition at Evaluation Evolving Summary Impairments Pain,ROM,Strength,Balance, Sensation,Bed Mobility, Transfers,Gait,Activity Tolerance Assessment Summary Juliana is alert and resting in bed. She reports she has not been up since surgery. She was able to sit up on edge of bed this visit and progress to transfer up to chair. She could not progress to gait this visit. She reports her back pain is 2-3/10. She is progressing slowly this visit. Pt is motivated to discharge home with her Spouse to help. She has a hx of out-pt PT but is willing to have home health PT if needed at discharge. She is not ready for discharge home yet but will continue to work towards this goal. Goals Bed Mobility Goal Minimal Assistance Transfer Goal Standby Assistance,Front Wheeled Walker Gait Goal Standby Assistance,Front Wheel Walker Gait Distance 100 feet Days to Meet Goals 3 Frequency of Treatment Frequency Of Treatment Twice a Day Treatment Plan Physical Therapy Treatment Plan Bed Mobility Training,Transfer Training,Gait Training, Therapeutic Exercise,Balance Retraining,Post Op Education, Discharge Planning,Hot or Cold Pack,Neuromuscular Re-ed Precautions Lumbar Precautions Log Roll,No Twisting,Limit Bending,Lifting Restriction of 10 lbs,Gait Belt above Incision Area Recommendations To Nursing Amount of Assist Needed 1 Person Assist Discharge Recommendations PT Discharge Recommendations Home with 03/09 Assist Available,Home Health Other Discharge Recommendations not ready for discharge today Transportation Needs at Discharge Private Vehicle
--- NOTE | 2023-06-27 12:19 | OT.IP.EVAL ---
Current Diagnoses Spondylolisthesis, lumbosacral region (06/26/23) Spinal stenosis, lumbar region without neurogenic claudication (06/26/23) Arthrodesis status (06/26/23) Surgery Performed Operation Date: 06/26/23 10:15 Actual Procedures p L4-5 lumbar HWR, exploration of fusion, repeat laminectomy, L5-S1 TLIF -Rose - Paddy Huff MD Past Medical History (Last Updated 06/20/23 @ 09:28 by Sima Leija RN) Ankle fracture, left (~2007) Arthritis Bilateral knee pain Breast cancer, left (03/2022) Eczema Edema Fibromyalgia Fragile skin Hearing impaired History of COVID-19 (03/2023) HTN (hypertension) Hypothyroid Osteoarthritis PVC's (premature ventricular contractions) Sleep apnea Surgical History (Last Updated 06/20/23 @ 09:19 by Sima Leija, RN) History of 3 sections History of lumbar fusion (~2014) History of lumbar laminectomy History of lumpectomy of left breast (~06/2022) History of total left knee replacement (11/24/18) History of total right knee replacement (07/01/18) Hx of bariatric surgery (~01/2014) Hx of bilateral cataract extraction (2019) Hx of cholecystectomy (~09/2006) Hx of left breast biopsy (2022) Hx of lumbar discectomy (~2012) Hx of tubal ligation S/P hernia surgery Occupational Therapy Inpatient Evaluation/Re-Eval M1 PT/OT-IP Prior Functional Status Start: 06/27/23 10:54 Freq: NEEDED Status: Active Protocol: Document 06/27/23 10:39 DLMichelle (Rec: 06/27/23 11:17 DLM [id number]) Medical Review Prior Functional Status Medical History Reviewed Yes Diet/Fluid Consistency Regular Communication WFL Mobility and Gait Spouse helps her get into bed. She reports she likes to walk without device. She has a FWW and 4WW to use at home as needed. Her back pain limits her activity. Activities of Daily Living and IADL's Spouse helps as needed. She stands for her shower. She has hx of urinary incontinence. She wears depends at home. Social History Household Members spouse Living Arrangements House Number of Floors (Floors) One Floor Number of Stairs To Enter/Railing? ramp Home Environment Standard Height Toilet,Walk in Shower Home Equipment Front Wheel Walker,Four Wheel Walker,Straight Cane,Raised Toilet Seat w/Armrests,Shower Seat with Backrest,Hand Held Shower,Leg Piano Accompanist,Long Handled Shoe Horn,Signal Maintenance Technician,Sock Aid, Grab Bars In Shower Employment Status Retired Additional Social History Comment tall bed M1 PT/OT-IP Prior Functional Status Start: 06/27/23 12:24 Freq: NEEDED Status: Active Protocol: Document 06/27/23 12:24 [facility] (Rec: 06/27/23 13:01 [facility] [id number]) Medical Review Prior Functional Status Medical History Reviewed Yes Diet/Fluid Consistency Regular Communication WFL Mobility and Gait Spouse helps her get into bed. She reports she likes to walk without device. She has a FWW and 4WW to use at home as needed. Her back pain limits her activity. Activities of Daily Living and IADL's Spouse helps as needed. She stands for her shower. She has hx of urinary incontinence. She wears depends at home. Social History Household Members spouse Living Arrangements House Number of Floors (Floors) One Floor Number of Stairs To Enter/Railing? ramp Home Environment Standard Height Toilet,Walk in Shower Home Equipment Front Wheel Walker,Four Wheel Walker,Straight Cane,Raised Toilet Seat w/Armrests,Shower Seat with Backrest,Hand Held Shower,Leg Piano Accompanist,Long Handled Shoe Horn,Signal Maintenance Technician,Sock Aid, Grab Bars In Shower Employment Status Retired Additional Social History Comment tall bed M2 OT-IP Current Condition Start: 06/27/23 12:24 Freq: Status: Active Protocol: Document 06/27/23 12:24 [facility] (Rec: 06/27/23 13:01 [facility] [id number]) Occupational Therapy Current Condition Current Condition Evaluation Date 06/27/23 Treatment Diagnosis S/P L4-5 lumbar HWR, explor fusion, repeat laminectomy L5- S1 TLIF Diagnosis Onset Date 06/26/23 Post Operative Precautions Lumbar Precautions Log Roll,No Twisting,Limit Bending,Lifting Restriction of 10 lbs,Gait Belt above Incisional Area M3 OT- IP Subjective and Pain Start: 06/27/23 12:24 Freq: Status: Active Protocol: Document 06/27/23 12:24 [facility] (Rec: 06/27/23 13:01 [facility] [id number]) OT- Subjective Occupational Therapy Visit Type Type Initial Evaluation Visit Start Time 11:45 Visit Stop Time 12:19 Occupational Therapy Visit Comments Patient Comments Pt wanting to get up to put in her dentures prior to lunch. Patient/Caregiver Goals To go home. OT Pain Assessment Pain When Pain Assessed During Mobility Pain Present Pain Present Pain Reported M4 OT- IP ADL's Start: 06/27/23 12:24 Freq: Status: Active Protocol: Document 06/27/23 12:24 [facility] (Rec: 06/27/23 13:01 [facility] [id number]) OT [id number] General Evaluation Self-Feeding Ability Independent OT ADL-Grooming General Evaluation Grooming Ability Independent Comments OT Grooming Comments While seated. OT ADL-Oral Care General Eval Oral Care Ability Independent Comments Oral Care Comments While seated. OT ADL-Dressing General Eval Lower Body Dressing Ability Maximum Assistance Areas Needing Assistance Socks Comments OT Dressing Comments Pt states has all LB dressing equipment at home. OT ADL-Toileting General Evaluation Toileting Ability Total Assistance Areas Needing Assistance Empty Catheter or Colostomy Comments OT Toileting Comments Aguilar in place. Educated pt of bidet or use of toilet paper aid. Pt states has something she uses that is similar to a toilet paper aid. Pt is incontinent and wears depends at all times. OT ADL-Bathing Comments OT Bathing Comments Sponge bath more appropriate at this time. M5 OT- IP IADL's Start: 06/27/23 12:24 Freq: Status: Active Protocol: Document 06/27/23 12:24 [facility] (Rec: 06/27/23 13:01 [facility] [id number]) OT-Instrumental Activities of Daily Living Deficits IADL Deficits Identified Deficits Home Safety Awareness Awareness of Need for Assistance at Home Good Awareness Ability to Problem Solve Emergency Able to Problem Solve Situations Home Safety Comments Pt will be able to assist as needed. Roll Contour Grinder Roll Contour Grinder No Deficits Identified Driving Driving Caregiver Provides Assist M6 OT- IP Functional Cognition Start: 06/27/23 12:24 Freq: Status: Active Protocol: Document 06/27/23 12:24 [facility] (Rec: 06/27/23 13:01 [facility] [id number]) Cognitive Factors Limiting Selfcare Function Cognitive Ability Level of Alertness Alert Patient Orientation Name,Age,Birthday,Month,Date, Year,Day of Week,Place, Situation Attention Span Ability Capable of Focused Attention, Capable of Sustained Attention Ability to Follow Commands Able to Follow One Step Commands Cognitive Comments Cognitive Assessment Comments Pt able to follow commands for ADL and mobility needs. Pt at times is insistent on her care. Pt tends to get in and out of bed her own way. OT- Vision and Hearing OT- Vision Assessment Vision Assessment Comments Pt wears glasses. M7 OT- IP Mobility and Balance Start: 06/27/23 12:24 Freq: Status: Active Protocol: Document 06/27/23 12:24 [facility] (Rec: 06/27/23 13:01 [facility] [id number]) OT- Bed Mobility Assessment Sit to Supine Sit to Supine Assist Maximum Assistance,2 Person Assistance OT-Transfer Assessment Sit to and From Stand Sit to and from Stand Maximum Assistance,2 Person Assistance Transfers Transfer Ability Moderate Assistance,1 Person Assistance Technique Transfer Destination Bed,Chair Transfer Technique Stand Step Pivot Devices Transfer Assistive Devices Gait Belt,Front Wheeled Walker Comments Mobility Comments Pt MAX AX 2 to stand FWW. Pt usually has a lift chair and can sleep there is needed. Pt needing MODA x1 with FWW to transfer back to bed. Pt BP 162/58. OT- Balance Assessment Sitting Balance and Reactions Static Sitting Balance Ability Fair Dynamic Sitting Balance Ability Fair Standing Balance and Reactions Static Standing Balance Ability Fair Dynamic Standing Balance Ability Poor M8 OT- IP Objective Assessments Start: 06/27/23 12:24 Freq: Status: Active Protocol: Document 06/27/23 12:24 [facility] (Rec: 06/27/23 13:01 [facility] [id number]) OT Gross Range of Motion Upper Extremity Range of Motion Assessment Right Impaired OT Strength Upper Extremity Strength Assessment Right Impaired M9 OT- IP Assessment and Plan Start: 06/27/23 12:24 Freq: Status: Active Protocol: Document 06/27/23 12:24 [facility] (Rec: 06/27/23 13:01 [facility] [id number]) OT Summary Assessment and Plan Potential Rehabilitation Potential Good Analytic Complexity at Evaluation Low Summary OT Impairments Pain,Balance,Functional Mobility,Grooming,Dressing, Toileting,Bathing,Toilet Transfers,Shower Transfers, Activity Tolerance Progress Towards Goals Slow Progress due to Pain,Slow Progress due to Activity Tolerance Assessment Summary Pt low complexity and main barriers are difficulty with transitions. Pt has had multiple back surgeries in the past and has all equipment needs and also a lift chair. Pt has a supportive who will be able to assist her at home when medically stable . Pt would benefit from home health to work on her transition and mobility needs. Goals Grooming Goal Independent Dressing Goal Minimal Assistance Toileting Goal Independent Bathing Goal Minimal Assistance Toilet Transfer Goal Independent Shower Transfer Goal Contact Guard Assistance Days to Meet Goals 10 Frequency of Treatment Frequency Of Treatment Once a Day Treatment Plan OT Treatment Plan ADL Training,Functional Mobility,Patient/Family Education,Discharge Planning Discharge Recommendations OT Discharge Recommendations Home with Assistance,Home Health Transportation Needs at Discharge Private Vehicle
[2023-06-27] MEDS: OXYCODONE IR 5 MG TABLET PO ×2 (14:24→21:21)
--- NOTE | 2023-06-27 14:45 | PT.IPTN ---
Current Diagnoses Spondylolisthesis, lumbosacral region (06/26/23) Spinal stenosis, lumbar region without neurogenic claudication (06/26/23) Arthrodesis status (06/26/23) Surgery Performed Operation Date: 06/26/23 10:15 Actual Procedures p L4-5 lumbar HWR, exploration of fusion, repeat laminectomy, L5-S1 TLIF -Rose Huff MD Physical Therapy Treatment Note M2 PT-IP Current Condition Start: 06/27/23 10:54 Freq: NEEDED Status: Active Protocol: Document 06/27/23 10:39 DLM (Rec: 06/27/23 11:17 DLM [id number]) Physical Therapy Current Condition Current Condition Evaluation Date 06/27/23 Treatment Diagnosis TLIF L5-S1, L4-5 hardware removal w/repeat lami Onset Date 06/26/23 M3 PT-IP Subjective Start: 06/27/23 10:54 Freq: NEEDED Status: Active Protocol: Document 06/27/23 15:22 TS (Rec: 06/27/23 15:30 TS [id number]) Subjective Physical Therapy Visit Type Type Treatment Note Visit Start Time 14:45 Visit Stop Time 15:09 Number of SUPERVISOR PRODUCTION Visits 1 Physical Therapy Visit Comments Patient Comments Pt found resting in bed, continues to have mild light- headedness with OOB mobility, is agreeable to PT. Patient Goals Her goals is to go home Therapy Pain Assessment Pain When Pain Assessed During Mobility Pain Present Pain Present Pain Reported M4 PT-IP Mobility and Gait Start: 06/27/23 10:54 Freq: NEEDED Status: Active Protocol: Document 06/27/23 15:22 TS (Rec: 06/27/23 15:30 TS [id number]) PT-Bed Mobility Assessment Supine to Sit Supine to Sit Moderate Assistance,1 Person Assistance,Bedrails Scooting Scooting to Edge of Bed Minimal Assistance PT-Transfer Assessment Sit to and From Stand Sit to and from Stand Minimal Assistance,1 Person Assistance Equipment Transfer Assistive Device Gait Belt,Front Wheeled Walker Comments Mobility Comments Supine to sit ModA for sitting to EOB, pt has posterior lean and requires use of handrails to maintain sitting balance. She performed STS from bed Haroldo with FWW, spouse was instructed in and performed donning of gait belt. She ambulated ~50'SBA with FWW, pt reported some light- headedness. Pt sat back on EOB , pt wanted to sit EOB and converse with friends. RN was notified. Gait Assessment Gait Gait Assistance Required: Standby Assistance Distance (Feet) 50 Assistive Devices Assistive Device Front Wheeled Walker Gait Deviations General Gait Pattern Decreased Stride Length, Decreased Feet Clearance,Step- to Gait Factors Limiting Gait Function Factors Limiting Gait Function Decreased Activity Tolerance, Decreased Strength,Poor Balance,Poor Safety Awareness Stair Climbing Assessment Comments Stair Climbing Comments ramp at home PT-Balance Assessment Sitting Balance and Reactions Static Sitting Balance Ability Fair Dynamic Sitting Balance Ability Fair Standing Balance and Reactions Static Standing Balance Ability Fair Dynamic Standing Balance Ability Fair Device Used FWW M5 PT-IP Objective Assessments Start: 06/27/23 10:54 Freq: NEEDED Status: Active Protocol: Document 06/27/23 10:39 DLM (Rec: 06/27/23 11:17 DLM [id number]) Orientation Orientation/Cognition Level of Alertness Alert Orientation Name,Age,Birthday,Month,Date, Year,Day of Week,Place, Situation Language Function Ability Hard of Hearing Safety Awareness Decreased Safety Awareness Memory Description No Deficits Noted Comments she has hearing aid in place Gross Range of Motion Upper Extremity ROM Assessment Within Functional Limits Lower Extremity ROM Assessment Within Functional Limits Strength Upper Extremity Strength Assessment Right Impaired Shoulder hx rotator cuff injury with intermittent pain and functional weakness Lower Extremity Strength Assessment Right Impaired Hip 4/5 Knee 4/5 Ankle 5/5 Coordination Assessment Gross Coordination Gross Coordination WNL Assessment Coordination Comments mild decrease in speed of movements Sensation Assessment Sensation Gross Sensation Right LE Impaired,Left LE Impaired Light Touch Intact Sensation Description Numbness Comments Sensation Comments she reports right LE is worse than left, has a hx of numbness, she does not report it is any worse after surgery Muscle Tone Muscle Tone WNL Yes M6 PT-IP Treatment Start: 06/27/23 10:54 Freq: NEEDED Status: Active Protocol: Document 06/27/23 15:22 TS (Rec: 06/27/23 15:30 TS [id number]) Physical Therapy Treatment Education Education Provided Precautions,Post-Op Packet, Safety M7 PT-IP Assessment and Plan Start: 06/27/23 10:54 Freq: NEEDED Status: Active Protocol: Document 06/27/23 15:22 TS (Rec: 06/27/23 15:30 TS [id number]) PT Summary Assessment and Plan Potential Rehabilitation Potential Good Summary Impairments Pain,ROM,Strength,Balance, Sensation,Bed Mobility, Transfers,Gait,Activity Tolerance Progress Towards Goals Progressing Toward Goals Assessment Summary Juliana is making some progress with her mobility. She is ModA for uprighting trunk to EOB, pt has difficulty maintaining sitting balance EOB. She performed STS with FWW Haroldo. She progressed her gait to ~50'SBA with FWW. PT is recommending home with 24/7 assist and HHPT. Goals Bed Mobility Goal Minimal Assistance Transfer Goal Standby Assistance,Front Wheeled Walker Gait Goal Standby Assistance,Front Wheel Walker Gait Distance 100 feet Days to Meet Goals 3 Frequency of Treatment Frequency Of Treatment Twice a Day Treatment Plan Physical Therapy Treatment Plan Bed Mobility Training,Transfer Training,Gait Training, Therapeutic Exercise,Balance Retraining,Post Op Education, Discharge Planning,Hot or Cold Pack,Neuromuscular Re-ed Precautions Lumbar Precautions Log Roll,No Twisting,Limit Bending,Lifting Restriction of 10 lbs,Gait Belt above Incisional Area Recommendations To Nursing Amount of Assist Needed 1 Person Assist Discharge Recommendations PT Discharge Recommendations Home with 24/7 Assist Available,Home Health Transportation Needs at Discharge Private Vehicle
--- NOTE | 2023-06-27 15:59 | PC.NURSE ---
Day shift: Pt does not want Aguilar cath removed today.
--- NOTE | 2023-06-27 16:15 | PM.PNPO.1 ---
Subjective Subjective Date Patient Seen: 06/27/23 Time Patient Seen: 10:00 Interval history: Patient is found resting comfortably in bed with SCD's on. Dressing appears to be dry and well maintained. No new complaints of numbness or tingling in her lower extremities. She just started working with PT. There was concern about her ability ambulate to the toilet she has a history of incontinence. She is still retained her Aguilar. Pain is controlled with oral medications. He is anxious to return home but does not feel that her lower legs are stable enough for it yet. Exam Vital Signs (past 8 hours): - 06/27/23 10:12 Temperature 98.8 F Pulse Rate 76 Respiratory Rate 18 Blood Pressure 146/68 H Pulse Oximetry 96 Oxygen Flow Rate 2 Oxygen Delivery Method Nasal Cannula Oxygen Flow Rate 2 Narrative Exam Narrative: Dressing is clean and dry. Sensation intact to light touch to bilateral lower extremities. She does elicit pain along the posterior right thigh and knee to deep palpation and pain to compression of her posterior left calf. Able to flex and extend at the EHL against resistance bilaterally. Able to dorsiflex and plantarflex against resistance at bilateral ankles. Objective Labs 06/27/23 04:40 Labs: Laboratory Results - last 24 hr 06/27/23 04:40 Hgb 12.2 Hct 36.8 PFSH Medical History (Updated 06/20/23 @ 09:28 by Sima Leija RN) History of COVID-19 (03/2023) Breast cancer, left (03/2022) PVC's (premature ventricular contractions) Hearing impaired Eczema Fragile skin Arthritis Osteoarthritis Ankle fracture, left (~2007) Bilateral knee pain Hypothyroid Edema HTN (hypertension) Fibromyalgia Sleep apnea Surgical History (Updated 06/20/23 @ 09:19 by Sima Leija RN) History of lumpectomy of left breast (~06/2022) Hx of left breast biopsy (2022) Hx of bilateral cataract extraction (2019) History of total left knee replacement (11/24/18) History of total right knee replacement (07/01/18) History of lumbar fusion (~2014) Hx of lumbar discectomy (~2012) History of lumbar laminectomy Hx of tubal ligation History of 3 sections S/P hernia surgery Hx of cholecystectomy (~09/2006) Hx of bariatric surgery (~01/2014) Social History household members: spouse Smoking Status: Never smoker alcohol intake: never Assessment & Plan Post-op Postoperative Procedures: Procedures Operation Date: 06/26/23 10:15 Actual Procedure Side Surgeon p L4-5 lumbar HWR, exploration of fusion, repeat laminectomy, L5-S1 TLIF -Robot Paddy Huff MD Postoperative day: 1 Postoperative plan: routine post-op care Postoperative plan narrative: Ultrasound of bilateral lower extremities to rule out DVT ordered. Radiologist reviewed no DVTs noted. Work with PT today to help with ambulation and coordination. Discontinue Aguilar. Multimodal pain control. Re-evaluate tomorrow for discharge to home. Time Spent With Patient Time with patient: 15-24 minutes Quality VTE Deep Vein Thrombosis/Pulmonary Embolism Present on Admission: No
[2023-06-27] MEDS: PANTOPRAZOLE DR 20 MG TABLET 40 MG PO (21:21)
[2023-06-27] MEDS: DIVALPROEX ER 250 MG TAB PO (21:21)
[2023-06-27] MEDS: VERAPAMIL 80 MG TABLET PO (21:22)
[2023-06-27] MEDS: SENNOSIDES 8.6 MG TABLET 17.2 MG PO (21:22)
[2023-06-28 02:21] VITALS: BP 97/53; PULSE 70; RESP 16; TEMP 36.1; O2SAT 99
[2023-06-28] MEDS: OXYCODONE IR 5 MG TABLET PO ×2 (06:55→11:59)
--- NOTE | 2023-06-28 07:24 | PM.DS.1 ---
History of Present Illness History of Present Illness Date Patient Seen: 06/28/23 Time Patient Seen: 07:24 Chief complaint: TLIF Narrative: Operative Date/Time/Diagnoses Date of procedure: 06/26/23 Time of procedure: 11:00 Pre-op diagnosis: 1. L5-S1 anterolisthesis 2. L5-S1 bilateral foramen stenosis 3. L4-5 history of fusion with foramen stenosis 4. Lumbar radiculopathy Post-op diagnosis: same Procedure & Clinicians Procedure: 1. L5-S1 posterolateral and posterior interbody fusion 2. L5-S1 posterior interbody cage placement 3. L4-5 posterior non-segmental instrumentation removal 4. L4-5 revision laminectomy with exploration of fusion 5. L5-S1 posterior segmental instrumentation with pedicle screw placement 6. [place] of bone marrow from iliac crest through a separate incision 7. Utilization of microsurgical technique and operating microscope 8. Utilization of robotic assisted navigation Same procedure as scheduled: Yes Indications: Patient has been having chronic back pain and worsening lumbar radiculopathy. Patient had a previous L4-5 fusion with posterior instrumentation. Patient was found to have L5-S1 anterolisthesis bilateral neuroforaminal stenosis with advanced degenerative changes correlating with her current symptoms of back pain and bilateral radiculopathy. Patient failed multiple conservative management with worsening pain weakness and numbness in her lower extremity. Patient has been having difficulty performing activity of daily living. After discussing risks benefits of treatment options, patient elected proceed with surgery. Surgeon: Paddy Huff Business Intelligence Etl Developer: Anna Ferrera Click Yes if Unassisted: No Anesthesia Type: General Operative Notes Closure Type: primary Specimen(s): none sent Prosthetic devices, grafts, tissues, transplants, or devices: Globus CREO MIS screws, Rise cage Applied: catheter Estimated Blood Loss (mL): 200 Blood products transfused: none Discharge Providers Provider Date of admission: 06/26/23 08:27 Discharge Date: 06/28/23 Primary care physician: Nigel Hughes MD Consults: 06/26/23 15:29 Consult to Occupational Therapy Evaluate & Treat Comment: Physician Instructions: Evaluate and treat Consult to Physical Therapy Evaluate & Treat Comment: Physician Instructions: Evaluate and Treat Discharge provider: Harshad Ayala PA-C Summary Hospital Course Discharge Diagnosis: Post multi-level TLIF Hospital Course: Multimodal pain control. Physical therapy. Aguilar left in additional day due to patient's history of incontinence and inability to ambulate to the toilet on her own postoperative day 1. SCDs on during hospital stay for VTE prophylaxis. Status at Discharge Cognitive/behavioral status at discharge: oriented Functional status at discharge: uses cane/walker Overall status at discharge: patient is back to baseline Time Spent with Patient Time spent: Less than 30 minutes Exam Vital Signs (past 8 hours): - 06/28/23 02:21 Temperature 97.0 F L Pulse Rate 70 Respiratory Rate 16 Blood Pressure 97/53 L Pulse Oximetry 99 Oxygen Flow Rate 0 Oxygen Delivery Method Nasal Cannula,CPAP Oxygen Flow Rate 0 Narrative Exam Narrative: Patient is found lying comfortably in bed. She says she feels sore all over today compared to yesterday. But she is anxious to return back home today. Denies any new numbness or tingling nausea vomiting or episodes of lightheadedness. She has been able to work with physical therapy to help ambulate up to 50 ft. Aguilar has just been removed. Pain controlled with oral medications Bilateral EHL, DF, PF and hip flexors are 5/5 this morning. Sensation of bilateral lower extremities intact to light touch. Dressing is clean and dry. Objective Labs 06/27/23 04:40 PFS Medical History (Updated 06/20/23 @ 09:28 by Sima Leija RN) History of COVID-19 (03/2023) Breast cancer, left (03/2022) PVC's (premature ventricular contractions) Hearing impaired Eczema Fragile skin Arthritis Osteoarthritis Ankle fracture, left (~2007) Bilateral knee pain Hypothyroid Edema HTN (hypertension) Fibromyalgia Sleep apnea Surgical History (Updated 06/20/23 @ 09:19 by Sima Leija RN) History of lumpectomy of left breast (~06/2022) Hx of left breast biopsy (2022) Hx of bilateral cataract extraction (2019) History of total left knee replacement (11/24/18) History of total right knee replacement (07/01/18) History of lumbar fusion (~2014) Hx of lumbar discectomy (~2012) History of lumbar laminectomy Hx of tubal ligation History of 3 sections S/P hernia surgery Hx of cholecystectomy (~09/2006) Hx of bariatric surgery (~01/2014) Social History household members: spouse Smoking Status: Never smoker alcohol intake: never Discharge Assessment & Plan Assessment and Plan Assessment: Status post multi-level TLIF Plan of Treatment: Discharge home. 1)?? Continue multimodal pain management. 2) No lifting, twisting, deep bending, prolonged sitting. 3) keep dressing clean and dry, no soaking the incision site and posterior times, no topical ointments or creams to the incision site. 4) Follow up in 2 weeks at [facility] for as scheduled for postop appointment, wound check, staple removal. Discharge Plan Discharge Plan Patient Disposition: Home Provider Discharge Comment: DC pending PT approval Discharge orders & Medications Prescriptions: Continued acetaminophen [Tylenol Arthritis Pain] 650 mg Tablet Extended Release 1,300 mg PO TID Patient Comments: not on home medication list provided 11/26/18 gabapentin 300 mg Capsule 600 mg PO TID Patient Comments: home med list does not have last fill dose furosemide 20 mg Tablet 20 mg PO QAM Patient Comments: not currently taking. 11/26/18 losartan 100 mg Tablet 50 mg PO DAILY omeprazole 20 mg Tablet,Delayed Release (Dr/Ec) 40 mg PO BEDTIME liothyronine 5 mcg tablet 40 mcg PO DAILY Patient Comments: not on home med list 11/26/18 current RX fill Rx Instructions: TAKE 2 TABLETS BY MOUTH ONCE DAILY BEFORE BREAKFAST lidocaine 5 % adhesive patch,medicated 1 patch topical PRN PRN (Reason: pain) levothyroxine [Synthroid] 200 mcg tablet 200 mcg PO MOTUWETHFRSA levothyroxine [Synthroid] 200 mcg tablet 400 mcg PO KAM multivitamin Tablet,Chewable 1 tab PO DAILY cholecalciferol (vitamin D3) [Vitamin D3] 5,000 unit Tablet 5,000 unit PO DAILY calcium citrate 1 tab PO QAM exemestane 25 mg Tablet 25 mg PO DAILY Rx Instructions: must administer after a meal nitroglycerin 0.4 mg Tablet, Sublingual 0.4 mg SUBLINGUAL Q5-15M PRN (Reason: Chest Pain) Rx Instructions: do not exceed 3 doses per episode verapamil 240 mg Tablet Extended Release 240 mg PO BEDTIME divalproex 250 mg Tablet Extended Release 24 Hr 250 mg PO BEDTIME zoledronic acid [Zometa] 4 mg/5 mL Solution 4 mg IV Q6M Rx Instructions: administer over at least 15 mins verapamil 180 mg tablet extended release PO triamcinolone acetonide 0.1 % cream 1 applic topical Discontinued ibuprofen 600 mg Tablet 600 mg PO TID Patient Comments: not on home medication list provided 11/26/18 Follow up/Referrals: Nigel Hughes MD [Primary Care Provider] - Paddy Huff MD [Physician] - 07/12/23 2:00 pm (Follow up w/ Laron Ayala PA-C, at [facility] office in [place].) Diet/Activity/Treatments Diet: Diet as Tolerated Activity: No deep bending or twisting at the waist. No lifting more than 10 pounds Cold/Heat Therapy: Heating pad to low back as needed for pain. Skin/Wound/Dressing Care Report to your healthcare provider any signs of infection, such as:: chills, fever, night sweats, unusual drainage and unusual redness Dressing: May shower. Keep dressing as dry as possible. If dressing becomes wet or dirty, remove and replace with clean, dry gauze. Visit Report/Discharge Packet Instructions: DI for Transforaminal Lumbar Interbody Fusion Stand Alone Forms: Patient Portal/API, Stroke Signs & Symptoms, Surgery Discharge Discharge Data Primary Care Provider: Nigel Hughes Quality VTE Deep Vein Thrombosis/Pulmonary Embolism Present on Admission: No
[2023-06-28 08:00] VITALS: BP 144/68; PULSE 90; RESP 16; TEMP 36.6; O2SAT 99
--- NOTE | 2023-06-28 08:06 | CM.DPC ---
DCP Cont. Reviewed EMR for status updates. Pt has been medically cleared for home d/c, her spouse will transport her home when ready. No further DCP needs identified at this time.
[2023-06-28] MEDS: CHOLECALCIFEROL (VITAMIN D3) 5,000 UNIT TABLET 5000 UNIT PO (08:37)
[2023-06-28] MEDS: MULTIVITAMIN 1 TABLET 1 TAB PO (08:37)
[2023-06-28] MEDS: GABAPENTIN 600 MG TABLET PO ×3 (08:37→21:11)
[2023-06-28] MEDS: FUROSEMIDE 20 MG TABLET PO (08:37)
[2023-06-28] MEDS: DOCUSATE 100 MG CAPSULE PO ×2 (08:37→21:11)
--- NOTE | 2023-06-28 08:55 | PT.IPTN ---
Current Diagnoses Spondylolisthesis, lumbosacral region (06/26/23) Spinal stenosis, lumbar region without neurogenic claudication (06/26/23) Arthrodesis status (06/26/23) Surgery Performed Operation Date: 06/26/23 10:15 Actual Procedures p L4-5 lumbar HWR, exploration of fusion, repeat laminectomy, L5-S1 TLIF -Rose Huff MD Physical Therapy Treatment Note M2 PT-IP Current Condition Start: 06/27/23 10:54 Freq: NEEDED Status: Active Protocol: Document 06/27/23 10:39 DLM (Rec: 06/27/23 11:17 DLM [id number]) Physical Therapy Current Condition Current Condition Evaluation Date 06/27/23 Treatment Diagnosis TLIF L5-S1, L4-5 hardware removal w/repeat lami Onset Date 06/26/23 M3 PT-IP Subjective Start: 06/27/23 10:54 Freq: NEEDED Status: Active Protocol: Document 06/28/23 10:05 TS (Rec: 06/28/23 10:16 TS [id number]) Subjective Physical Therapy Visit Type Type Treatment Note Visit Start Time 08:55 Visit Stop Time 09:18 Number of CASH GRAIN GROWER Visits 2 Physical Therapy Visit Comments Patient Comments Pt found resting in bed, reports higher pain this morning. is agreeable to PT. Therapy Pain Assessment Pain When Pain Assessed During Mobility Pain Present Pain Present Pain Reported M4 PT-IP Mobility and Gait Start: 06/27/23 10:54 Freq: NEEDED Status: Active Protocol: Document 06/28/23 10:05 TS (Rec: 06/28/23 10:16 TS [id number]) PT-Bed Mobility Assessment Supine to Sit Supine to Sit Maximum Assistance,1 Person Assistance,Bedrails Scooting Scooting to Edge of Bed Maximum Assistance PT-Transfer Assessment Sit to and From Stand Sit to and from Stand Maximum Assistance,1 Person Assistance Equipment Transfer Assistive Device Gait Belt,Front Wheeled Walker Comments Mobility Comments Supine to sit MaxA for LE's to EOB and 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 She scooted to bed MaxA with use of transfer pad, nrusing assisting pt with sitting balance. Pt sat EOB and reported dizziness, BP 136/65. She has fait balance in sitting and has some posterior leaning, requires handrails to hold onto. STS form bed x2 MaxA with FWW, pt has flexed posture. Sit to supine into bed MaxA x2 with cues for logroll sequencing. Pt was left in bed, all needs met. Gait Assessment Comments Gait Comments Unable at this time Stair Climbing Assessment Comments Stair Climbing Comments ramp at home PT-Balance Assessment Sitting Balance and Reactions Static Sitting Balance Ability Fair Dynamic Sitting Balance Ability Poor Standing Balance and Reactions Static Standing Balance Ability Poor Dynamic Standing Balance Ability Poor M5 PT-IP Objective Assessments Start: 06/27/23 10:54 Freq: NEEDED Status: Active Protocol: Document 06/27/23 10:39 DLM (Rec: 06/27/23 11:17 DLM [id number]) Orientation Orientation/Cognition Level of Alertness Alert Orientation Name,Age,Birthday,Month,Date, Year,Day of Week,Place, Situation Language Function Ability Hard of Hearing Safety Awareness Decreased Safety Awareness Memory Description No Deficits Noted Comments she has hearing aid in place Gross Range of Motion Upper Extremity ROM Assessment Within Functional Limits Lower Extremity ROM Assessment Within Functional Limits Strength Upper Extremity Strength Assessment Right Impaired Shoulder hx rotator cuff injury with intermittent pain and functional weakness Lower Extremity Strength Assessment Right Impaired Hip 4/5 Knee 4/5 Ankle 5/5 Coordination Assessment Gross Coordination Gross Coordination WNL Assessment Coordination Comments mild decrease in speed of movements Sensation Assessment Sensation Gross Sensation Right LE Impaired,Left LE Impaired Light Touch Intact Sensation Description Numbness Comments Sensation Comments she reports right LE is worse than left, has a hx of numbness, she does not report it is any worse after surgery Muscle Tone Muscle Tone WNL Yes M6 PT-IP Treatment Start: 06/27/23 10:54 Freq: NEEDED Status: Active Protocol: Document 06/28/23 10:05 TS (Rec: 06/28/23 10:16 [id number]) Physical Therapy Treatment Education Education Provided Precautions,Post-Op Packet, Safety M7 PT-IP Assessment and Plan Start: 06/27/23 10:54 Freq: NEEDED Status: Active Protocol: Document 06/28/23 10:05 TS (Rec: 06/28/23 10:16 TS [id number]) PT Summary Assessment and Plan Potential Rehabilitation Potential Good Summary Progress Towards Goals Slow Progress due to Pain,Slow Progress due to Activity Tolerance Assessment Summary Juliana is making slow progress with her mobility. She requires MaxA for supine to sit and for STS with FWW. Pt has increased pain and weakness this morning. PT will follow up later early this afternoon to see if pt has improved. PT is recommending Home / vs SNF at this time. Goals Bed Mobility Goal Minimal Assistance Transfer Goal Standby Assistance,Front Wheeled Walker Gait Goal Standby Assistance,Front Wheel Walker Gait Distance 100 feet Days to Meet Goals 3 Frequency of Treatment Frequency Of Treatment Twice a Day Treatment Plan Physical Therapy Treatment Plan Bed Mobility Training,Transfer Training,Gait Training, Therapeutic Exercise,Balance Retraining,Post Op Education, Discharge Planning,Hot or Cold Pack,Neuromuscular Re-ed Precautions Lumbar Precautions Log Roll,No Twisting,Limit Bending,Lifting Restriction of 10 lbs,Gait Belt above Incisional Area Recommendations To Nursing Amount of Assist Needed 1 Person Assist Discharge Recommendations PT Discharge Recommendations Home with 24 Assist Available,Home Health,Home vs SNF Transportation Needs at Discharge Private Vehicle,Wheelchair/ Cabulance
[2023-06-28] MEDS: LEVOTHYROXINE 100 MCG TABLET 200 MCG PO (10:42)
[2023-06-28] MEDS: LIOTHYRONINE 5 MCG TABLET 40 MCG PO (10:48)
--- NOTE | 2023-06-28 12:45 | PT.IPTN ---
Current Diagnoses Spondylolisthesis, lumbosacral region (06/26/23) Spinal stenosis, lumbar region without neurogenic claudication (06/26/23) Arthrodesis status (06/26/23) Surgery Performed Operation Date: 06/26/23 10:15 Actual Procedures p L4-5 lumbar HWR, exploration of fusion, repeat laminectomy, L5-S1 TLIF -Rose - Paddy Huff MD Physical Therapy Treatment Note M2 PT-IP Current Condition Start: 06/27/23 10:54 Freq: NEEDED Status: Active Protocol: Document 06/27/23 10:39 DLM (Rec: 06/27/23 11:17 DLM [id number]) Physical Therapy Current Condition Current Condition Evaluation Date 06/27/23 Treatment Diagnosis TLIF L5-S1, L4-5 hardware removal w/repeat lami Onset Date 06/26/23 M3 PT-IP Subjective Start: 06/27/23 10:54 Freq: NEEDED Status: Active Protocol: Document 06/28/23 13:41 TS (Rec: 06/28/23 13:51 TS [id number]) Subjective Physical Therapy Visit Type Type Treatment Note Visit Start Time 12:45 Visit Stop Time 13:20 Notes OT present Spo2 89-9% on RA, 93% on 2L's Number of METAL CUTTER Visits 3 Physical Therapy Visit Comments Patient Comments Pt found resting in bed, reported 2-3 people for her to get to commode. Pt is agreeable to PT. Therapy Pain Assessment Pain When Pain Assessed During Mobility Pain Present Pain Present Pain Reported M4 PT-IP Mobility and Gait Start: 06/27/23 10:54 Freq: NEEDED Status: Active Protocol: Document 06/28/23 13:41 TS (Rec: 06/28/23 13:51 TS [id number]) PT-Bed Mobility Assessment Supine to Sit Supine to Sit Maximum Assistance,1 Person Assistance,Bedrails Sit to Supine Sit to Supine Maximum Assistance,2 Person Assistance Scooting Scooting to Edge of Bed Maximum Assistance Scooting Up and Down in Bed Minimal Assistance PT-Transfer Assessment Sit to and From Stand Sit to and from Stand Moderate Assistance,2 Person Assistance Equipment Transfer Assistive Device Gait Belt,Front Wheeled Walker Comments Mobility Comments Supine to sit MaxA x1 for upirghting trunk, pt required Haroldo for moving of LE's. Pt does not maintain sitting balance, she has a posterior lean and requires cues for core act throughout session. STS from bed x3 ModA x2 with FWW. Pt has some retroleaning in standing and flexed posture . She fatigues quickly in standing. She took a few sidesteps to HOB ModA x2 with FWW. Sit to supine into bed MaxA x2 with cues for logroll. Pt was left in bed, OT in room. Stair Climbing Assessment Comments Stair Climbing Comments ramp at home PT-Balance Assessment Sitting Balance and Reactions Static Sitting Balance Ability Poor Dynamic Sitting Balance Ability Poor Standing Balance and Reactions Static Standing Balance Ability Poor Dynamic Standing Balance Ability Poor Device Used FWW M5 PT-IP Objective Assessments Start: 06/27/23 10:54 Freq: NEEDED Status: Active Protocol: Document 06/27/23 10:39 DLM (Rec: 06/27/23 11:17 DL [id number]) Orientation Orientation/Cognition Level of Alertness Alert Orientation Name,Age,Birthday,Month,Date, Year,Day of Week,Place, Situation Language Function Ability Hard of Hearing Safety Awareness Decreased Safety Awareness Memory Description No Deficits Noted Comments she has hearing aid in place Gross Range of Motion Upper Extremity ROM Assessment Within Functional Limits Lower Extremity ROM Assessment Within Functional Limits Strength Upper Extremity Strength Assessment Right Impaired Shoulder hx rotator cuff injury with intermittent pain and functional weakness Lower Extremity Strength Assessment Right Impaired Hip 4/5 Knee 4/5 Ankle 5/5 Coordination Assessment Gross Coordination Gross Coordination WNL Assessment Coordination Comments mild decrease in speed of movements Sensation Assessment Sensation Gross Sensation Right LE Impaired,Left LE Impaired Light Touch Intact Sensation Description Numbness Comments Sensation Comments she reports right LE is worse than left, has a hx of numbness, she does not report it is any worse after surgery Muscle Tone Muscle Tone WNL Yes M6 PT-IP Treatment Start: 06/27/23 10:54 Freq: NEEDED Status: Active Protocol: Document 06/28/23 13:41 TS (Rec: 06/28/23 13:51 TS [id number]) Physical Therapy Treatment Education Education Provided Precautions,Post-Op Packet, Safety M7 PT-IP Assessment and Plan Start: 06/27/23 10:54 Freq: NEEDED Status: Active Protocol: Document 06/28/23 13:41 TS (Rec: 06/28/23 13:51 TS [id number]) PT Summary Assessment and Plan Potential Rehabilitation Potential Fair Summary Impairments Pain,ROM,Strength,Balance, Sensation,Bed Mobility, Transfers,Gait,Activity Tolerance Progress Towards Goals Slow Progress due to Pain,Slow Progress due to Activity Tolerance Assessment Summary Juliana continues to make slow progress with her mobility. She continues to be MaxA x1 for sitting up to EOB, most likely x2 person assist. She loses balance sitting EOB often and requires cues for core act. She performed STS from bed with FWW x3 with ModA x2. She took a few sidesteps to HOB with FWW ModA x2. PT at this time is recommending SNF to progress strength, activity tolerance and functional mobility. Goals Bed Mobility Goal Minimal Assistance Transfer Goal Standby Assistance,Front Wheeled Walker Gait Goal Standby Assistance,Front Wheel Walker Gait Distance 100 feet Days to Meet Goals 3 Frequency of Treatment Frequency Of Treatment Twice a Day Treatment Plan Physical Therapy Treatment Plan Bed Mobility Training,Transfer Training,Gait Training, Therapeutic Exercise,Balance Retraining,Post Op Education, Discharge Planning,Hot or Cold Pack,Neuromuscular Re-ed Other Recommendations and Next Treatment progress ambulation distance, Focus follow up on need to clear stairs, a 2 section ramp has been installed with non skid surface ( has a picture on his phone), ther ex, trial stairs if appropriate. Precautions Lumbar Precautions Log Roll,No Twisting,Limit Bending,Lifting Restriction of 10 lbs,Gait Belt above Incisional Area Recommendations To Nursing Amount of Assist Needed 1 Person Assist Discharge Recommendations PT Discharge Recommendations SNF Rehab Transportation Needs at Discharge Wheelchair/Cabulance
--- NOTE | 2023-06-28 13:20 | OT.IP.TRT ---
Current Diagnoses Spondylolisthesis, lumbosacral region (06/26/23) Spinal stenosis, lumbar region without neurogenic claudication (06/26/23) Arthrodesis status (06/26/23) Surgery Performed Operation Date: 06/26/23 10:15 Actual Procedures p L4-5 lumbar HWR, exploration of fusion, repeat laminectomy, L5-S1 TLIF -Rose Huff MD Occupational Therapy Treatment Note M2 OT-IP Current Condition Start: 06/27/23 12:24 Freq: Status: Active Protocol: Document 06/27/23 12:24 [facility] (Rec: 06/27/23 13:01 [facility] [id number]) Occupational Therapy Current Condition Current Condition Evaluation Date 06/27/23 Treatment Diagnosis S/P L4-5 lumbar HWR, explor fusion, repeat laminectomy L5- S1 TLIF Diagnosis Onset Date 06/26/23 Post Operative Precautions Lumbar Precautions Log Roll,No Twisting,Limit Bending,Lifting Restriction of 10 lbs,Gait Belt above Incisional Area M3 OT- IP Subjective and Pain Start: 06/27/23 12:24 Freq: Status: Active Protocol: Document 06/28/23 13:47 [facility] (Rec: 06/28/23 13:55 [facility] [id number]) OT- Subjective Occupational Therapy Visit Type Type Treatment Note Visit Start Time 12:55 Visit Stop Time 13:20 Occupational Therapy Visit Comments Patient Comments Pt with BACK HAND when trying to get up. Patient/Caregiver Goals TO get better. OT Pain Assessment Pain When Pain Assessed During Mobility Pain Present Pain Present Pain Reported Location Bilateral Back Intensity 6 M5 OT- IP IADL's Start: 06/27/23 12:24 Freq: Status: Active Protocol: Document 06/27/23 12:24 [facility] (Rec: 06/27/23 13:01 [facility] [id number]) OT-Instrumental Activities of Daily Living Deficits IADL Deficits Identified Deficits Home Safety Awareness Awareness of Need for Assistance at Home Good Awareness Ability to Problem Solve Emergency Able to Problem Solve Situations Home Safety Comments Pt will be able to assist as needed. Bladder Trimmer Bladder Trimmer No Deficits Identified Driving Driving Caregiver Provides Assist M6 OT- IP Functional Cognition Start: 06/27/23 12:24 Freq: Status: Active Protocol: Document 06/27/23 12:24 [facility] (Rec: 06/27/23 13:01 [facility] [id number]) Cognitive Factors Limiting Selfcare Function Cognitive Ability Level of Alertness Alert Patient Orientation Name,Age,Birthday,Month,Date, Year,Day of Week,Place, Situation Attention Span Ability Capable of Focused Attention, Capable of Sustained Attention Ability to Follow Commands Able to Follow One Step Commands Cognitive Comments Cognitive Assessment Comments Pt able to follow commands for ADL and mobility needs. Pt at times is insistent on her care. Pt tends to get in and out of bed her own way. OT- Vision and Hearing OT- Vision Assessment Vision Assessment Comments Pt wears glasses. M7 OT- IP Mobility and Balance Start: 06/27/23 12:24 Freq: Status: Active Protocol: Document 06/28/23 13:47 [facility] (Rec: 06/28/23 13:55 [facility] [id number]) OT- Bed Mobility Assessment Sit to Supine Sit to Supine Assist Maximum Assistance,2 Person Assistance OT-Transfer Assessment Sit to and From Stand Sit to and from Stand Moderate Assistance,2 Person Assistance Technique Transfer Destination Bed Devices Transfer Assistive Devices Gait Belt,Front Wheeled Walker Comments Mobility Comments MODA X 2 to stand to the FWW from hi bed. Pt able take a couple small steps the the head of the bed with MAXA x2. Pt needing heavy use of her hands on the FWW. Assist from therapist for her balance and to help move the FWW. OT- Balance Assessment Comments Other Balance Tests/Deviations/Treatment Pt tend to lend into posterior : tilt due to weak core. M8 OT- IP Objective Assessments Start: 06/27/23 12:24 Freq: Status: Active Protocol: Document 06/27/23 12:24 [facility] (Rec: 06/27/23 13:01 [facility] [id number]) OT Gross Range of Motion Upper Extremity Range of Motion Assessment Right Impaired OT Strength Upper Extremity Strength Assessment Right Impaired M9 OT- IP Assessment and Plan Start: 06/27/23 12:24 Freq: Status: Active Protocol: Document 06/28/23 13:47 [facility] (Rec: 06/28/23 13:55 [facility] [id number]) OT Summary Assessment and Plan Potential Rehabilitation Potential Good Analytic Complexity at Evaluation Low Summary OT Impairments Pain,Balance,Functional Mobility,Grooming,Dressing, Toileting,Bathing,Toilet Transfers,Shower Transfers, Activity Tolerance Progress Towards Goals Slow Progress due to Pain,Slow Progress due to Activity Tolerance Assessment Summary Pt still having difficulty with transitions. Pt on RA and O2 at 89% and , had pt back on O2 at 2L 93%. Pt needing extensive two person assist at this time to stand. Pt will benefit from skilled rehab at this time as current level in too great for her to assist. Goals Grooming Goal Independent Dressing Goal Minimal Assistance Toileting Goal Independent Bathing Goal Minimal Assistance Toilet Transfer Goal Independent Shower Transfer Goal Contact Guard Assistance Days to Meet Goals 20 Frequency of Treatment Frequency Of Treatment Once a Day Treatment Plan OT Treatment Plan ADL Training,Functional Mobility,Patient/Family Education,Discharge Planning Discharge Recommendations OT Discharge Recommendations SNF Rehab Transportation Needs at Discharge Wheelchair/Cabulance
--- NOTE | 2023-06-28 14:12 | CM.DPC ---
DCP Cont. Reviewed EMR and team rounds for status updates. PT/OT rec. SNF due to inability to mobilize safely. Referral and clinicals sent to [facility]. Will call them in the am to clarify if they can accept.
[2023-06-28 20:00] VITALS: BP 166/54; PULSE 91; RESP 18; TEMP 36.9; O2SAT 93
[2023-06-28 21:11] VITALS: BP 166/54; PULSE 91
[2023-06-28] MEDS: DIVALPROEX ER 250 MG TAB PO (21:11)
[2023-06-28] MEDS: VERAPAMIL 80 MG TABLET PO (21:11)
[2023-06-28] MEDS: PANTOPRAZOLE DR 20 MG TABLET 40 MG PO (21:11)
[2023-06-28] MEDS: SENNOSIDES 8.6 MG TABLET 17.2 MG PO (21:11)
[2023-06-28 22:00] VITALS: BP 146/72; PULSE 84
[2023-06-28] MEDS: OXYCODONE IR 10 MG TABLET PO (23:06)
[2023-06-29] VITALS (10 sets, daily range): BP systolic 138–154; BP diastolic 50–66; PULSE 80–86; RESP 16–20; TEMP 37–37.4; O2SAT 90–96
[2023-06-29] MEDS: MULTIVITAMIN 1 TABLET 1 TAB PO (08:14)
[2023-06-29] MEDS: FUROSEMIDE 20 MG TABLET PO (08:14)
[2023-06-29] MEDS: DOCUSATE 100 MG CAPSULE PO ×2 (08:14→20:32)
[2023-06-29] MEDS: VERAPAMIL 80 MG TABLET PO ×3 (08:14→20:32)
[2023-06-29] MEDS: GABAPENTIN 600 MG TABLET PO ×3 (08:15→20:32)
[2023-06-29] MEDS: LOSARTAN 50 MG TABLET PO (08:15)
[2023-06-29] MEDS: CHOLECALCIFEROL (VITAMIN D3) 5,000 UNIT TABLET 5000 UNIT PO (08:15)
[2023-06-29] MEDS: SODIUM CHLORIDE 0.9% FLUSH 10 ML IV ×2 (08:15→20:33)
[2023-06-29] MEDS: OXYCODONE IR 5 MG TABLET PO (09:36)
--- NOTE | 2023-06-29 10:05 | PT.IPTN ---
Current Diagnoses Spondylolisthesis, lumbosacral region (06/26/23) Spinal stenosis, lumbar region without neurogenic claudication (06/26/23) Arthrodesis status (06/26/23) Surgery Performed Operation Date: 06/26/23 10:15 Actual Procedures p L4-5 lumbar HWR, exploration of fusion, repeat laminectomy, L5-S1 TLIF -Rose Huff MD Physical Therapy Treatment Note M2 PT-IP Current Condition Start: 06/27/23 10:54 Freq: NEEDED Status: Active Protocol: Document 06/27/23 10:39 DLM (Rec: 06/27/23 11:17 DLM [id number]) Physical Therapy Current Condition Current Condition Evaluation Date 06/27/23 Treatment Diagnosis TLIF L5-S1, L4-5 hardware removal w/repeat lami Onset Date 06/26/23 M3 PT-IP Subjective Start: 06/27/23 10:54 Freq: NEEDED Status: Active Protocol: Document 06/29/23 11:35 TS (Rec: 06/29/23 11:43 TS [id number]) Subjective Physical Therapy Visit Type Type Treatment Note Visit Start Time 10:05 Visit Stop Time 10:32 Number of QUALITY ASSURANCE MONITOR CHASSIS Visits 4 Physical Therapy Visit Comments Patient Comments Pt found resting in bed, nursing and PA in room, pt is agreeable to PT. Therapy Pain Assessment Pain When Pain Assessed During Mobility Pain Present Pain Present Pain Reported M4 PT-IP Mobility and Gait Start: 06/27/23 10:54 Freq: NEEDED Status: Active Protocol: Document 06/29/23 11:35 TS (Rec: 06/29/23 11:43 TS [id number]) PT-Bed Mobility Assessment Supine to Sit Supine to Sit Maximum Assistance,2 Person Assistance,Bedrails Sit to Supine Sit to Supine Maximum Assistance,2 Person Assistance Scooting Scooting to Edge of Bed Maximum Assistance PT-Transfer Assessment Sit to and From Stand Sit to and from Stand Maximum Assistance,1 Person Assistance Equipment Transfer Assistive Device Gait Belt,Front Wheeled Walker Comments Mobility Comments Pt resting on 1L of o2. Supine to sit MaxA x2 for uprighting trunk and LE's to EOB, pt demonstrates difficulty with LLE movement. She scooted to EOB MaxA with transfer and nrusing supporting back, pt tends to have a posterior lean . Pt sat EOB, continues to have posterior lean, pt cued for core act. STS from bed x3 MaxA x1 with FWW. Pt has flexed posture and buckling knees, could not come fully into standing. Sit to supine MaxA x1, pt reports lightheadedness sitting EOB. Pt was left in bed, all needs met. PT-Balance Assessment Sitting Balance and Reactions Static Sitting Balance Ability Poor Dynamic Sitting Balance Ability Poor Standing Balance and Reactions Static Standing Balance Ability Poor Dynamic Standing Balance Ability Poor Device Used FWW M5 PT-IP Objective Assessments Start: 06/27/23 10:54 Freq: NEEDED Status: Active Protocol: Document 06/27/23 10:39 DLM (Rec: 06/27/23 11:17 DLM [id number]) Orientation Orientation/Cognition Level of Alertness Alert Orientation Name,Age,Birthday,Month,Date, Year,Day of Week,Place, Situation Language Function Ability Hard of Hearing Safety Awareness Decreased Safety Awareness Memory Description No Deficits Noted Comments she has hearing aid in place Gross Range of Motion Upper Extremity ROM Assessment Within Functional Limits Lower Extremity ROM Assessment Within Functional Limits Strength Upper Extremity Strength Assessment Right Impaired Shoulder hx rotator cuff injury with intermittent pain and functional weakness Lower Extremity Strength Assessment Right Impaired Hip 4/5 Knee 4/5 Ankle 5/5 Coordination Assessment Gross Coordination Gross Coordination WNL Assessment Coordination Comments mild decrease in speed of movements Sensation Assessment Sensation Gross Sensation Right LE Impaired,Left LE Impaired Light Touch Intact Sensation Description Numbness Comments Sensation Comments she reports right LE is worse than left, has a hx of numbness, she does not report it is any worse after surgery Muscle Tone Muscle Tone WNL Yes M6 PT-IP Treatment Start: 06/27/23 10:54 Freq: NEEDED Status: Active Protocol: Document 06/29/23 11:35 TS (Rec: 06/29/23 11:43 [id number]) Physical Therapy Treatment Education Education Provided Precautions,Post-Op Packet, Safety M7 PT-IP Assessment and Plan Start: 06/27/23 10:54 Freq: NEEDED Status: Active Protocol: Document 06/29/23 11:35 TS (Rec: 06/29/23 11:43 TS [id number]) PT Summary Assessment and Plan Potential Rehabilitation Potential Fair Summary Impairments Pain,ROM,Strength,Balance, Sensation,Bed Mobility, Transfers,Gait,Activity Tolerance Progress Towards Goals Slow Progress due to Pain,Slow Progress due to Activity Tolerance Assessment Summary Juliana continues to make slow progress with her mobility. She is MaxA x2 for bed mobility and MAxA x1 for STS. She could not progress to ambulation this morning due to unsteadiness and buckling of knees. PT continues to recommend SNF. Goals Bed Mobility Goal Minimal Assistance Transfer Goal Standby Assistance,Front Wheeled Walker Gait Goal Standby Assistance,Front Wheel Walker Gait Distance 100 feet Days to Meet Goals 3 Frequency of Treatment Frequency Of Treatment Twice a Day Treatment Plan Physical Therapy Treatment Plan Bed Mobility Training,Transfer Training,Gait Training, Therapeutic Exercise,Balance Retraining,Post Op Education, Discharge Planning,Hot or Cold Pack,Neuromuscular Re-ed Precautions Lumbar Precautions Log Roll,No Twisting,Limit Bending,Lifting Restriction of 10 lbs,Gait Belt above Incisional Area Recommendations To Nursing Amount of Assist Needed 2 Person Assist Discharge Recommendations PT Discharge Recommendations SNF Rehab Transportation Needs at Discharge Wheelchair/Cabulance
--- NOTE | 2023-06-29 10:08 | P.PN_ITS ---
Subjective Subjective Interval history: Juliana is a 78 year old female who is POD#2 s/p L5-S1 posterolateral and posterior interbody fusion with cage placement, L4-5 right revision hemilaminectomy by Dr. Huff. Complains of of worsening right leg and low back pain over the last 24 hours. She denies any shooting pains, states it is a constant pain in the back of her right leg and low back. She states she is miserable this morning. She complains that even the sheet underneath her is uncomfortable. She states she is unable to walk anymore d/t pain and weakness. She reports an intolerance to muscle relaxants of any kind including Vistaril. I spoke with PT Connor, he states that patient did well on and thought d/c to home was appropriate at that time but yesterday she was had a sudden decrease in mobility and increase in pain. Will see how she does with PT today to determine SNF vs. home. Lives at home with who patient states is able and willing to aid in her post-op care. She has self rising chair and several tools at home to help with her ADLs. Denies fever, chills, chest pain, shortness of breath, nausea, no vomiting. Exam Vital Signs (past 8 hours): - 06/29/23 08:00 06/29/23 08:14 06/29/23 08:15 Temperature 98.6 F Pulse Rate 86 86 86 Respiratory Rate 16 Blood Pressure 154/66 H 154/66 H 154/66 H Pulse Oximetry 93 Oxygen Flow Rate 2 Oxygen Delivery Method Nasal Cannula,CPAP Oxygen Flow Rate 2 Narrative Exam Narrative: Lying in bed in no acute distress during interview today. No signs of facial grimacing. SCDs on and functioning. Back/Spine/Pelvis Other: Unable to visualize postsurgical dressings as patient unable to move d/t pain at this time. Extrem Other: 5/5 strength with DF, PF, EHL bilaterally. Able to flex hip and extend knee bilaterally. Gross sensation intact in bilateral lower extremities Calf soft and compressible bilaterally. Objective Labs 06/27/23 04:40 [facility] Medical History (Updated 06/20/23 @ 09:28 by Sima Leija RN) History of COVID-19 (03/2023) Breast cancer, left (03/2022) PVC's (premature ventricular contractions) Hearing impaired Eczema Fragile skin Arthritis Osteoarthritis Ankle fracture, left (~2007) Bilateral knee pain Hypothyroid Edema HTN (hypertension) Fibromyalgia Sleep apnea Surgical History (Updated 06/20/23 @ 09:19 by Sima Leija RN) History of lumpectomy of left breast (~06/2022) Hx of left breast biopsy (2022) Hx of bilateral cataract extraction (2019) History of total left knee replacement (11/24/18) History of total right knee replacement (07/01/18) History of lumbar fusion (~2014) Hx of lumbar discectomy (~2012) History of lumbar laminectomy Hx of tubal ligation History of 3 sections S/P hernia surgery Hx of cholecystectomy (~09/2006) Hx of bariatric surgery (~01/2014) Social History household members: spouse Smoking Status: Never smoker alcohol intake: never Assessment & Plan Post-op Postoperative Procedures: Procedures Operation Date: 06/26/23 10:15 Actual Procedure Side Surgeon p L4-5 lumbar HWR, exploration of fusion, repeat laminectomy, L5-S1 TLIF -Robot Paddy Huff MD Postoperative day: 2 Postoperative status narrative: Poor mobility, poor pain control Postoperative plan narrative: 1) Will work with PT again today and re-assess mobility, likely SNF discharge once approved by insurance as patient is still complaining of severe pain and poor mobility. 2) Continue multimodal pain management. 3) Mechanical DVT prophylaxis, SCDs to be worn and functioning while patient is in bed. 4) Keep dressing intact, clean, dry until 2 week postop appointment. No soaking the incision site in pools or tubs. No topical ointments or creams to the incision site. 5) Follow up at [facility] orthopedics in 2 weeks for a postop appointment and wound check. All patient's questions were answered, she demonstrates understanding and is in agreement with the plan. Quality VTE Deep Vein Thrombosis/Pulmonary Embolism Present on Admission: No
[2023-06-29] MEDS: LIOTHYRONINE 5 MCG TABLET 40 MCG PO (11:07)
[2023-06-29] MEDS: LEVOTHYROXINE 100 MCG TABLET 200 MCG PO (11:08)
--- NOTE | 2023-06-29 13:05 | PT.IPTN ---
Current Diagnoses Spondylolisthesis, lumbosacral region (06/26/23) Spinal stenosis, lumbar region without neurogenic claudication (06/26/23) Arthrodesis status (06/26/23) Surgery Performed Operation Date: 06/26/23 10:15 Actual Procedures p L4-5 lumbar HWR, exploration of fusion, repeat laminectomy, L5-S1 TLIF -Rose Huff MD Physical Therapy Treatment Note M2 PT-IP Current Condition Start: 06/27/23 10:54 Freq: NEEDED Status: Active Protocol: Document 06/27/23 10:39 DLM (Rec: 06/27/23 11:17 DLM [id number]) Physical Therapy Current Condition Current Condition Evaluation Date 06/27/23 Treatment Diagnosis TLIF L5-S1, L4-5 hardware removal w/repeat lami Onset Date 06/26/23 M3 PT-IP Subjective Start: 06/27/23 10:54 Freq: NEEDED Status: Active Protocol: Document 06/29/23 13:43 TS (Rec: 06/29/23 13:49 TS [id number]) Subjective Physical Therapy Visit Type Type Treatment Note Visit Start Time 13:05 Visit Stop Time 13:36 Notes Spouse present Number of PUPPY WALKER Visits 5 Physical Therapy Visit Comments Patient Comments Pt found resting in bed, is agreeable to PT. M4 PT-IP Mobility and Gait Start: 06/27/23 10:54 Freq: NEEDED Status: Active Protocol: Document 06/29/23 13:43 TS (Rec: 06/29/23 13:49 TS [id number]) PT-Bed Mobility Assessment Supine to Sit Supine to Sit Maximum Assistance,2 Person Assistance,Bedrails Sit to Supine Sit to Supine Maximum Assistance,2 Person Assistance Scooting Scooting to Edge of Bed Maximum Assistance PT-Transfer Assessment Sit to and From Stand Sit to and from Stand Maximum Assistance,1 Person Assistance Equipment Transfer Assistive Device Gait Belt,Front Wheeled Walker Comments Mobility Comments Pt found resting on 2L's of o2 . Supine to sit MaxA x2 for uprighting trunk. pt sat EOB, continues to have posterior lean requiring ModA. She performed STS x4 MaxA 1-2 PA with FWW. She continues to have buckling of knees and increased pain. New brief was donned in sitting/standing. Sit to supine into bed MaxA x2 with cues for logroll tehcnique. Pt was left in bed, all needs met. PT-Balance Assessment Sitting Balance and Reactions Static Sitting Balance Ability Poor Dynamic Sitting Balance Ability Poor Standing Balance and Reactions Static Standing Balance Ability Poor Dynamic Standing Balance Ability Poor Device Used FWW M5 PT-IP Objective Assessments Start: 06/27/23 10:54 Freq: NEEDED Status: Active Protocol: Document 06/27/23 10:39 DLM (Rec: 06/27/23 11:17 DLM [id number]) Orientation Orientation/Cognition Level of Alertness Alert Orientation Name,Age,Birthday,Month,Date, Year,Day of Week,Place, Situation Language Function Ability Hard of Hearing Safety Awareness Decreased Safety Awareness Memory Description No Deficits Noted Comments she has hearing aid in place Gross Range of Motion Upper Extremity ROM Assessment Within Functional Limits Lower Extremity ROM Assessment Within Functional Limits Strength Upper Extremity Strength Assessment Right Impaired Shoulder hx rotator cuff injury with intermittent pain and functional weakness Lower Extremity Strength Assessment Right Impaired Hip 4/5 Knee 4/5 Ankle 5/5 Coordination Assessment Gross Coordination Gross Coordination WNL Assessment Coordination Comments mild decrease in speed of movements Sensation Assessment Sensation Gross Sensation Right LE Impaired,Left LE Impaired Light Touch Intact Sensation Description Numbness Comments Sensation Comments she reports right LE is worse than left, has a hx of numbness, she does not report it is any worse after surgery Muscle Tone Muscle Tone WNL Yes M6 PT-IP Treatment Start: 06/27/23 10:54 Freq: NEEDED Status: Active Protocol: Document 06/29/23 13:43 TS (Rec: 06/29/23 13:49 TS [id number]) Physical Therapy Treatment Education Education Provided Precautions,Post-Op Packet, Safety M7 PT-IP Assessment and Plan Start: 06/27/23 10:54 Freq: NEEDED Status: Active Protocol: Document 06/29/23 13:43 TS (Rec: 06/29/23 13:49 TS [id number]) PT Summary Assessment and Plan Potential Rehabilitation Potential Fair Summary Impairments Pain,ROM,Strength,Balance, Sensation,Bed Mobility, Transfers,Gait,Activity Tolerance Progress Towards Goals Slow Progress due to Pain,Slow Progress due to Activity Tolerance Assessment Summary Juliana continues to progress slowly with her mobility. She is MaxA x2 for bed mobility and MaxA x1-2 for STS. Once in standing she fatigues quickly and knees continue to buckle. She is incontinent of urine but does state so at times. PT continues to recommend SNF. Goals Bed Mobility Goal Minimal Assistance Transfer Goal Standby Assistance,Front Wheeled Walker Gait Goal Standby Assistance,Front Wheel Walker Gait Distance 100 feet Days to Meet Goals 3 Frequency of Treatment Frequency Of Treatment Twice a Day Treatment Plan Physical Therapy Treatment Plan Bed Mobility Training,Transfer Training,Gait Training, Therapeutic Exercise,Balance Retraining,Post Op Education, Discharge Planning,Hot or Cold Pack,Neuromuscular Re-ed Precautions Lumbar Precautions Log Roll,No Twisting,Limit Bending,Lifting Restriction of 10 lbs,Gait Belt above Incisional Area Recommendations To Nursing Amount of Assist Needed 2 Person Assist Discharge Recommendations PT Discharge Recommendations SNF Rehab Transportation Needs at Discharge Wheelchair/Cabulance
[2023-06-29] MEDS: PANTOPRAZOLE DR 20 MG TABLET 40 MG PO (20:32)
[2023-06-29] MEDS: SENNOSIDES 8.6 MG TABLET 17.2 MG PO (20:32)
[2023-06-29] MEDS: DIVALPROEX ER 250 MG TAB PO (20:32)
[2023-06-30] MEDS: OXYCODONE IR 5 MG TABLET PO ×3 (04:22→14:23)
[2023-06-30 08:00] VITALS: BP 162/78; PULSE 83; RESP 16; TEMP 37.1; O2SAT 96
[2023-06-30] MEDS: LOSARTAN 50 MG TABLET PO (09:26)
[2023-06-30] MEDS: LIOTHYRONINE 5 MCG TABLET 40 MCG PO (09:26)
[2023-06-30] MEDS: DOCUSATE 100 MG CAPSULE PO ×2 (09:30→21:47)
[2023-06-30] MEDS: GABAPENTIN 600 MG TABLET PO ×3 (09:30→21:47)
[2023-06-30] MEDS: MULTIVITAMIN 1 TABLET 1 TAB PO (09:31)
[2023-06-30] MEDS: VERAPAMIL 80 MG TABLET PO ×3 (09:31→21:47)
[2023-06-30] MEDS: FUROSEMIDE 20 MG TABLET PO (09:31)
[2023-06-30] MEDS: CHOLECALCIFEROL (VITAMIN D3) 5,000 UNIT TABLET 5000 UNIT PO (09:31)
[2023-06-30] MEDS: SODIUM CHLORIDE 0.9% FLUSH 10 ML IV ×2 (09:31→21:47)
--- NOTE | 2023-06-30 09:49 | P.PN_ITS ---
Exam Vital Signs (past 8 hours): - 06/30/23 08:00 Temperature 98.8 F Pulse Rate 83 Respiratory Rate 16 Blood Pressure 162/78 H Pulse Oximetry 96 Oxygen Flow Rate 1 Oxygen Delivery Method CPAP Oxygen Flow Rate 1 Objective Labs 06/27/23 04:40 [facility] Medical History (Updated 06/20/23 @ 09:28 by Sima Leija RN) History of COVID-19 (03/2023) Breast cancer, left (03/2022) PVC's (premature ventricular contractions) Hearing impaired Eczema Fragile skin Arthritis Osteoarthritis Ankle fracture, left (~2007) Bilateral knee pain Hypothyroid Edema HTN (hypertension) Fibromyalgia Sleep apnea Surgical History (Updated 06/20/23 @ 09:19 by Sima Leija RN) History of lumpectomy of left breast (~06/2022) Hx of left breast biopsy (2022) Hx of bilateral cataract extraction (2019) History of total left knee replacement (11/24/18) History of total right knee replacement (07/01/18) History of lumbar fusion (~2014) Hx of lumbar discectomy (~2012) History of lumbar laminectomy Hx of tubal ligation History of 3 sections S/P hernia surgery Hx of cholecystectomy (~09/2006) Hx of bariatric surgery (~01/2014) Social History household members: spouse Smoking Status: Never smoker alcohol intake: never Assessment & Plan Assessment & Plan narrative: POD#3 s/p L5-S1 TLIF and L4-5 HWR. Patient ambulated well on and has been having more difficulty walking yesterday. On exam, her dressing is clean dry intact. Patient is neurovascularly intact in BLE with mild edema in feet unchanged. Will have patient work with PT/OT again today and assess progress. If patient continue to require 2 person assist, patient will likely need rehab after discharge from the hospital. Will re-assess after today's PT/OT and plan for discharge accordingly. Quality VTE Deep Vein Thrombosis/Pulmonary Embolism Present on Admission: No
[2023-06-30] MEDS: LEVOTHYROXINE 100 MCG TABLET 400 MCG PO (10:37)
--- NOTE | 2023-06-30 11:20 | PC.NURSE ---
Addendum entered by Leonora August R.N. 06/30/23 14:03: Patient up with physical therapy and sat up in the chair, she also walked around the room with physical therapy. She moved better today and will be discharged to the care center tomorrow. Original Note: Patient is working with physical therapy now. She is able to stand but states she will not sit in the chair in her room as it is to low and she cannot get out of it. Explained to patient that it is not great to stay in bed all day, and is good for her lungs to move around and sit up at least once or twice a day. Physical therapist has gotten patient a different chair to sit in and try. Patient is also visiting with her . Dressing cdi to lower back and patient given oxycodone for pain.
--- NOTE | 2023-06-30 11:40 | PT.IPTN ---
Current Diagnoses Spondylolisthesis, lumbosacral region (06/26/23) Spinal stenosis, lumbar region without neurogenic claudication (06/26/23) Arthrodesis status (06/26/23) Surgery Performed Operation Date: 06/26/23 10:15 Actual Procedures p L4-5 lumbar HWR, exploration of fusion, repeat laminectomy, L5-S1 TLIF -Rose Huff MD Physical Therapy Treatment Note M2 PT-IP Current Condition Start: 06/27/23 10:54 Freq: NEEDED Status: Active Protocol: Document 06/27/23 10:39 DLM (Rec: 06/27/23 11:17 DLM [id number]) Physical Therapy Current Condition Current Condition Evaluation Date 06/27/23 Treatment Diagnosis TLIF L5-S1, L4-5 hardware removal w/repeat lami Onset Date 06/26/23 M3 PT-IP Subjective Start: 06/27/23 10:54 Freq: NEEDED Status: Active Protocol: Document 06/30/23 11:40 DLM (Rec: 06/30/23 12:09 DLM [id number]) Subjective Physical Therapy Visit Type Type Treatment Note Visit Start Time 11:00 Visit Stop Time 11:40 Notes 40 minutes Number of STAFF DEVELOPER Visits 0 Physical Therapy Visit Comments Patient Comments She would prefer to go home at discharge but knows she has to be able to walk short distances to be safe to go home. Patient Goals Go home with her Therapy Pain Assessment Pain When Pain Assessed During Mobility Pain Present Pain Present Pain Reported Location Bilateral Back Intensity 5 Scale Used Numeric (0 - 10) Description Aching,Tender,With Movement Pain Behaviors Facial Grimacing,Guarding, Wincing Pain Management Techniques Modification of Treatment,Re- positioning,Timing of Activity with Medications M4 PT-IP Mobility and Gait Start: 06/27/23 10:54 Freq: NEEDED Status: Active Protocol: Document 06/30/23 11:40 DLM (Rec: 06/30/23 12:09 DLM [id number]) PT-Bed Mobility Assessment Supine to Sit Supine to Sit Moderate Assistance,Head of Bed Elevated,Bedrails Scooting Scooting to Edge of Bed Maximum Assistance PT-Transfer Assessment Sit to and From Stand Sit to and from Stand Minimal Assistance,Use of Upper Extremities Equipment Transfer Assistive Device Gait Belt,Front Wheeled Walker Transfers Transfer Destination Chair Transfer Technique Stand Step Pivot Transfer Ability Level of Assist Minimal Assistance Comments Mobility Comments Pt has great difficulty scooting on the bed to get to the edge. She demonstrates good static sitting balance once at edge of bed. Placed a taller recliner in her room to assist with getting in/out of chair. Pt left up in chair to attend hinduism online with Spouse Stair Climbing Assessment Comments Stair Climbing Comments ramp at home PT-Balance Assessment Sitting Balance and Reactions Static Sitting Balance Ability Good Dynamic Sitting Balance Ability Fair Standing Balance and Reactions Static Standing Balance Ability Fair Dynamic Standing Balance Ability Fair Device Used FWW M5 PT-IP Objective Assessments Start: 06/27/23 10:54 Freq: NEEDED Status: Active Protocol: Document 06/27/23 10:39 DLM (Rec: 06/27/23 11:17 DL [id number]) Orientation Orientation/Cognition Level of Alertness Alert Orientation Name,Age,Birthday,Month,Date, Year,Day of Week,Place, Situation Language Function Ability Hard of Hearing Safety Awareness Decreased Safety Awareness Memory Description No Deficits Noted Comments she has hearing aid in place Gross Range of Motion Upper Extremity ROM Assessment Within Functional Limits Lower Extremity ROM Assessment Within Functional Limits Strength Upper Extremity Strength Assessment Right Impaired Shoulder hx rotator cuff injury with intermittent pain and functional weakness Lower Extremity Strength Assessment Right Impaired Hip 4/5 Knee 4/5 Ankle 5/5 Coordination Assessment Gross Coordination Gross Coordination WNL Assessment Coordination Comments mild decrease in speed of movements Sensation Assessment Sensation Gross Sensation Right LE Impaired,Left LE Impaired Light Touch Intact Sensation Description Numbness Comments Sensation Comments she reports right LE is worse than left, has a hx of numbness, she does not report it is any worse after surgery Muscle Tone Muscle Tone WNL Yes M6 PT-IP Treatment Start: 06/27/23 10:54 Freq: NEEDED Status: Active Protocol: Document 06/30/23 11:40 DLM (Rec: 06/30/23 12:09 DL [id number]) Physical Therapy Treatment Education Education Provided Precautions,Safety Other Treatments Other Treatment Performed Her is present today and participated in therapy session. M7 PT-IP Assessment and Plan Start: 06/27/23 10:54 Freq: NEEDED Status: Active Protocol: Document 06/30/23 11:40 DLM (Rec: 06/30/23 12:09 DL [id number]) PT Summary Assessment and Plan Summary Impairments Pain,ROM,Strength,Balance, Sensation,Bed Mobility, Transfers,Gait,Activity Tolerance Progress Towards Goals Slow Progress due to Activity Tolerance Assessment Summary Juliana demonstrates improved sitting balance and transfers this visit. No knee buckling observed with transfer to recliner. Two people present during this visit for safety to decrease fall risks. She continues to have a lot of difficulty getting out of bed. She has a lift recliner at home that she plans to use. Will work towards progressing gait later today. Goals Bed Mobility Goal Minimal Assistance Transfer Goal Standby Assistance,Front Wheeled Walker Gait Goal Standby Assistance,Front Wheel Walker Gait Distance 100 feet Days to Meet Goals 3 Frequency of Treatment Frequency Of Treatment Twice a Day Treatment Plan Physical Therapy Treatment Plan Bed Mobility Training,Transfer Training,Gait Training, Therapeutic Exercise,Balance Retraining,Post Op Education, Discharge Planning,Hot or Cold Pack,Neuromuscular Re-ed Precautions Lumbar Precautions Log Roll,No Twisting,Limit Bending,Lifting Restriction of 10 lbs,Gait Belt above Incisional Area Recommendations To Nursing Amount of Assist Needed 2 Person Assist Discharge Recommendations PT Discharge Recommendations Home vs SNF Transportation Needs at Discharge Wheelchair/Cabulance
--- NOTE | 2023-06-30 14:09 | PT.IPTN ---
Current Diagnoses Spondylolisthesis, lumbosacral region (06/26/23) Spinal stenosis, lumbar region without neurogenic claudication (06/26/23) Arthrodesis status (06/26/23) Surgery Performed Operation Date: 06/26/23 10:15 Actual Procedures p L4-5 lumbar HWR, exploration of fusion, repeat laminectomy, L5-S1 TLIF -Rose Huff MD Physical Therapy Treatment Note M2 PT-IP Current Condition Start: 06/27/23 10:54 Freq: NEEDED Status: Active Protocol: Document 06/27/23 10:39 DLM (Rec: 06/27/23 11:17 DLM [id number]) Physical Therapy Current Condition Current Condition Evaluation Date 06/27/23 Treatment Diagnosis TLIF L5-S1, L4-5 hardware removal w/repeat lami Onset Date 06/26/23 M3 PT-IP Subjective Start: 06/27/23 10:54 Freq: NEEDED Status: Active Protocol: Document 06/30/23 14:09 DLM (Rec: 06/30/23 14:28 DLM [id number]) Subjective Physical Therapy Visit Type Type Treatment Note Visit Start Time 13:45 Visit Stop Time 14:09 Notes 24 Number of SOLAR ENERGY ENGINEER Visits 0 Physical Therapy Visit Comments Patient Comments She reports tolerating sitting up in the recliner well today . She did better in the new recliner. Patient Goals Go home with her Therapy Pain Assessment Pain When Pain Assessed During Mobility Pain Present Pain Present Pain Reported Location Bilateral Back Intensity 6 Scale Used Numeric (0 - 10) Description Aching,Tender,With Movement Pain Behaviors Facial Grimacing,Guarding, Wincing Pain Management Techniques Modification of Treatment,Re- positioning,Timing of Activity with Medications M4 PT-IP Mobility and Gait Start: 06/27/23 10:54 Freq: NEEDED Status: Active Protocol: Document 06/30/23 14:09 DLM (Rec: 06/30/23 14:28 DL [id number]) PT-Bed Mobility Assessment Rolling Type of Rolling Roll to Right,Roll to Left Level of Assist Minimal Assistance Supine to Sit Supine to Sit Moderate Assistance,Head of Bed Elevated,Bedrails Sit to Supine Sit to Supine Moderate Assistance,Bedrails Scooting Scooting to Edge of Bed Moderate Assistance PT-Transfer Assessment Sit to and From Stand Sit to and from Stand Minimal Assistance,Use of Upper Extremities Equipment Transfer Assistive Device Gait Belt,Front Wheeled Walker Comments Mobility Comments Pt sat up in chair this AM. Pt back in bed resting at start of this visit. She has difficulty with scooting on the bed. She needed UE assist/ support to keep her balance in sitting on edge of bed. Pt reports 3/10 back pain in bed. Gait Assessment Gait Gait Assistance Required: Contact Guard Assist,Minimum Assistance,1 Person Assist Distance (Feet) 14 Assistive Devices Assistive Device Gait Belt,Front Wheeled Walker Gait Deviations General Gait Pattern Antalgic,Flexed Trunk,Step-to Gait,Wide Based Gait Factors Limiting Gait Function Factors Limiting Gait Function Decreased Activity Tolerance, Decreased Strength,Pain,Poor Balance Comments Gait Comments Pt ambulated to the window and back to bed. She describes increased pain in right thigh area with weight bearing up to 7/10. Stair Climbing Assessment Comments Stair Climbing Comments ramp at home PT-Balance Assessment Sitting Balance and Reactions Static Sitting Balance Ability Fair Dynamic Sitting Balance Ability Fair Standing Balance and Reactions Static Standing Balance Ability Fair Dynamic Standing Balance Ability Fair Device Used FWW M5 PT-IP Objective Assessments Start: 06/27/23 10:54 Freq: NEEDED Status: Active Protocol: Document 06/27/23 10:39 DLM (Rec: 06/27/23 11:17 DLM [id number]) Orientation Orientation/Cognition Level of Alertness Alert Orientation Name,Age,Birthday,Month,Date, Year,Day of Week,Place, Situation Language Function Ability Hard of Hearing Safety Awareness Decreased Safety Awareness Memory Description No Deficits Noted Comments she has hearing aid in place Gross Range of Motion Upper Extremity ROM Assessment Within Functional Limits Lower Extremity ROM Assessment Within Functional Limits Strength Upper Extremity Strength Assessment Right Impaired Shoulder hx rotator cuff injury with intermittent pain and functional weakness Lower Extremity Strength Assessment Right Impaired Hip 4/5 Knee 4/5 Ankle 5/5 Coordination Assessment Gross Coordination Gross Coordination WNL Assessment Coordination Comments mild decrease in speed of movements Sensation Assessment Sensation Gross Sensation Right LE Impaired,Left LE Impaired Light Touch Intact Sensation Description Numbness Comments Sensation Comments she reports right LE is worse than left, has a hx of numbness, she does not report it is any worse after surgery Muscle Tone Muscle Tone WNL Yes M6 PT-IP Treatment Start: 06/27/23 10:54 Freq: NEEDED Status: Active Protocol: Document 06/30/23 14:09 DLM (Rec: 06/30/23 14:28 [facility] [id number]) Physical Therapy Treatment Exercises Exercises Ankle Pumps,Gluteal Sets Education Education Provided Precautions,Safety Other Treatments Other Treatment Performed Her arrived after therapy session this afternoon . M7 PT-IP Assessment and Plan Start: 06/27/23 10:54 Freq: NEEDED Status: Active Protocol: Document 06/30/23 14:09 [facility] (Rec: 06/30/23 14:28 [facility] [id number]) PT Summary Assessment and Plan Summary Impairments Pain,ROM,Strength,Balance, Sensation,Bed Mobility, Transfers,Gait,Activity Tolerance Progress Towards Goals Slow Progress due to Activity Tolerance Assessment Summary Juliana demonstrates improved ability to ambulate today. A second person was present for gait training for safety and to decrease fall risks. Pt needs UE support on FWW for gait with reports of back and right LE pain. Her right LE pain increased with stance phase of gait. Pt returned to bed to rest after gait this visit. She needs to continue to increase her distances of gait to be safe to discharge home. No buckling of her knees observed this visit. Goals Bed Mobility Goal Minimal Assistance Transfer Goal Standby Assistance,Front Wheeled Walker Gait Goal Standby Assistance,Front Wheel Walker Gait Distance 100 feet Days to Meet Goals 3 Frequency of Treatment Frequency Of Treatment Twice a Day Treatment Plan Physical Therapy Treatment Plan Bed Mobility Training,Transfer Training,Gait Training, Therapeutic Exercise,Balance Retraining,Post Op Education, Discharge Planning,Hot or Cold Pack,Neuromuscular Re-ed Precautions Lumbar Precautions Log Roll,No Twisting,Limit Bending,Lifting Restriction of 10 lbs,Gait Belt above Incisional Area Recommendations To Nursing Amount of Assist Needed 2 Person Assist Discharge Recommendations Transportation Needs at Discharge Wheelchair/Cabulance
[2023-06-30] MEDS: OXYCODONE IR 10 MG TABLET PO (20:14)
[2023-06-30 20:39] VITALS: BP 146/72; PULSE 85; RESP 17; TEMP 36.6; O2SAT 94
[2023-06-30 21:47] VITALS: BP 146/72; PULSE 85
[2023-06-30] MEDS: PANTOPRAZOLE DR 20 MG TABLET 40 MG PO (21:47)
[2023-06-30] MEDS: DIVALPROEX ER 250 MG TAB PO (21:47)
[2023-06-30 22:22] VITALS: PULSE 76
[2023-07-01] MEDS: OXYCODONE IR 10 MG TABLET PO (06:20)
[2023-07-01 07:30] VITALS: BP 137/65; PULSE 81; RESP 18; TEMP 37.4; O2SAT 99
--- NOTE | 2023-07-01 08:42 | PC.NURSE ---
Addendum entered by Leonora August R.N. 07/01/23 13:46: Patient has been on room air today, no sob or issues with breathing. Report called to [facility] in [place] and patient left about a half hour ago. Original Note: Patient will have her dressing changed today prior to discharge to SNF. She is doing better with her ambulation with walker and gaitbelt. Oxycodone for discomfort has worked well for patient.
[2023-07-01] MEDS: DOCUSATE 100 MG CAPSULE PO (09:30)
[2023-07-01] MEDS: VERAPAMIL 80 MG TABLET PO (09:30)
[2023-07-01] MEDS: MULTIVITAMIN 1 TABLET 1 TAB PO (09:30)
[2023-07-01] MEDS: LOSARTAN 50 MG TABLET PO (09:30)
[2023-07-01] MEDS: GABAPENTIN 600 MG TABLET PO (09:30)
[2023-07-01] MEDS: LIOTHYRONINE 5 MCG TABLET 40 MCG PO (09:30)
[2023-07-01] MEDS: CHOLECALCIFEROL (VITAMIN D3) 5,000 UNIT TABLET 5000 UNIT PO (09:30)
[2023-07-01] MEDS: LEVOTHYROXINE 100 MCG TABLET 200 MCG PO (09:31)
[2023-07-01] MEDS: ACETAMINOPHEN 325 MG TABLET 650 MG PO (09:31)
[2023-07-01] MEDS: FUROSEMIDE 20 MG TABLET PO (09:31)
[2023-07-01] MEDS: SODIUM CHLORIDE 0.9% FLUSH 10 ML IV (09:31)
--- NOTE | 2023-07-01 09:37 | PM.DS.1 ---
History of Present Illness History of Present Illness Chief complaint: TLIF Narrative: Juliana is a 78 year old female who is POD#5 s/p L5-S1 TLIF and L4-[address] Huff. This morning claire reports moderate pain, improved from yesterday. She feels she did well with PT yesterday and reports she was able to get up and walk around her room with the use of a walker. Has not seen PT at today. She still has a PureWick in place, she suffered from urinary incontinence prior to this hospitalization. Patient lives at home with her but due to her lack of mobility and relatively poor pain control over the last 5 days her and her both feel discharge to SNF is the best course of action for the patient at this time. Denies fever, chills, chest pain, SOB, nausea, vomiting. Operative Date/Time/Diagnoses Date of procedure: 06/26/23 Time of procedure: 11:00 Pre-op diagnosis: 1. L5-S1 anterolisthesis 2. L5-S1 bilateral foramen stenosis 3. L4-5 history of fusion with foramen stenosis 4. Lumbar radiculopathy Post-op diagnosis: same Procedure & Clinicians Procedure: 1. L5-S1 posterolateral and posterior interbody fusion 2. L5-S1 posterior interbody cage placement 3. L4-5 posterior non-segmental instrumentation removal 4. L4-5 revision laminectomy with exploration of fusion 5. L5-S1 posterior segmental instrumentation with pedicle screw placement 6. [employer] of bone marrow from iliac crest through a separate incision 7. Utilization of microsurgical technique and operating microscope 8. Utilization of robotic assisted navigation Same procedure as scheduled: Yes Indications: Patient has been having chronic back pain and worsening lumbar radiculopathy. Patient had a previous L4-5 fusion with posterior instrumentation. Patient was found to have L5-S1 anterolisthesis bilateral neuroforaminal stenosis with advanced degenerative changes correlating with her current symptoms of back pain and bilateral radiculopathy. Patient failed multiple conservative management with worsening pain weakness and numbness in her lower extremity. Patient has been having difficulty performing activity of daily living. After discussing risks benefits of treatment options, patient elected proceed with surgery. Surgeon: Paddy Huff Stock Sheets Cleaner Inspector: Anna Ferrera Click Yes if Unassisted: No Anesthesia Type: General Discharge Providers Provider Date of admission: 06/26/23 08:27 Discharge Date: 07/01/23 Primary care physician: Nigel Hughes MD Consults: 06/26/23 15:29 Consult to Occupational Therapy Evaluate & Treat Comment: Physician Instructions: Evaluate and treat Consult to Physical Therapy Evaluate & Treat Comment: Physician Instructions: Evaluate and Treat Discharge provider: Gali Yang PA-C Summary Hospital Course Discharge Diagnosis: Stable status post L5-S1 TLIF and L4-5 HWR Hospital Course: Hospital course complicated by poor pain control and decreased mobility on postop day 2, 3 and 4. Exam Vital Signs (past 8 hours): - 07/01/23 07:30 Temperature 99.4 F Pulse Rate 81 Respiratory Rate 18 Blood Pressure 137/65 Pulse Oximetry 99 Oxygen Flow Rate 1 Oxygen Delivery Method Nasal Cannula Oxygen Flow Rate 1 Narrative Exam Narrative: Lying in bed comfortably during our interview today. No acute distress. SCDs on a functioning. Resp Effort & Inspection: normal respiratory effort and able to speak in complete sentences Cardio Other: Brisk capillary refill, pulses intact. Skin Other: Post surgical dressings clean, dry, intact. No rash. Extrem Other: 5/5 strength with DF, PF, EHL bilaterally. Calf size equal, soft and compressible bilaterally. Gross sensation intact throughout bilateral lower extremities. Objective Labs 06/27/23 04:40 [facility] Medical History (Updated 06/20/23 @ 09:28 by Sima Leija RN) History of COVID-19 (03/2023) Breast cancer, left (03/2022) PVC's (premature ventricular contractions) Hearing impaired Eczema Fragile skin Arthritis Osteoarthritis Ankle fracture, left (~2007) Bilateral knee pain Hypothyroid Edema HTN (hypertension) Fibromyalgia Sleep apnea Surgical History (Updated 06/20/23 @ 09:19 by Sima Leija RN) History of lumpectomy of left breast (~06/2022) Hx of left breast biopsy (2022) Hx of bilateral cataract extraction (2019) History of total left knee replacement (11/24/18) History of total right knee replacement (07/01/18) History of lumbar fusion (~2014) Hx of lumbar discectomy (~2012) History of lumbar laminectomy Hx of tubal ligation History of 3 sections S/P hernia surgery Hx of cholecystectomy (~09/2006) Hx of bariatric surgery (~01/2014) Social History (Reviewed 11/26/18 @ 23:47 by BEBE Jovel household members: spouse Smoking Status: Never smoker alcohol intake: never Discharge Assessment & Plan Assessment and Plan Assessment: Status post multi-level TLIF, stable. Plan of Treatment: Plan to discharge to [facility] today. 1)?? Continue multimodal pain management. Prescriptions have been printed and signed. Mechanical DVT prophylaxis. 2) No lifting, twisting, deep bending, prolonged sitting. Work with OT at [facility] to help gain mobility back. 3) Keep dressing clean and dry, no soaking the incision site in pools or tubs, no topical ointments or creams to the incision site. 4) Follow up in 2 weeks at [facility] for as scheduled for postop appointment, wound check, staple removal. Discharge Plan Discharge Plan Patient Disposition: [facility] Transfer to: [facility] Discharge orders & Medications Prescriptions: New docusate sodium 100 mg Capsule 100 mg PO BID PRN (Reason: constipation) Qty: 60 0RF oxycodone 5 mg Tablet 5 mg PO Q4-6H PRN (Reason: Pain, Moderate (4-6)) Qty: 30 0RF Continued acetaminophen [Tylenol Arthritis Pain] 650 mg Tablet Extended Release 1,300 mg PO TID Patient Comments: not on home medication list provided 11/26/18 gabapentin 300 mg Capsule 600 mg PO TID Patient Comments: home med list does not have last fill dose furosemide 20 mg Tablet 20 mg PO QAM Patient Comments: not currently taking. 11/26/18 losartan 100 mg Tablet 50 mg PO DAILY omeprazole 20 mg Tablet,Delayed Release (Dr/Ec) 40 mg PO BEDTIME liothyronine 5 mcg tablet 40 mcg PO DAILY Patient Comments: not on home med list 11/26/18 current RX fill Rx Instructions: TAKE 2 TABLETS BY MOUTH ONCE DAILY BEFORE BREAKFAST lidocaine 5 % adhesive patch,medicated 1 patch topical PRN PRN (Reason: pain) levothyroxine [Synthroid] 200 mcg tablet 200 mcg PO MOTUWETHFRSA levothyroxine [Synthroid] 200 mcg tablet 400 mcg PO KAM multivitamin Tablet,Chewable 1 tab PO DAILY cholecalciferol (vitamin D3) [Vitamin D3] 5,000 unit Tablet 5,000 unit PO DAILY calcium citrate 1 tab PO QAM exemestane 25 mg Tablet 25 mg PO DAILY Rx Instructions: must administer after a meal nitroglycerin 0.4 mg Tablet, Sublingual 0.4 mg SUBLINGUAL Q5-15M PRN (Reason: Chest Pain) Rx Instructions: do not exceed 3 doses per episode verapamil 240 mg Tablet Extended Release 240 mg PO BEDTIME divalproex 250 mg Tablet Extended Release 24 Hr 250 mg PO BEDTIME zoledronic acid 4 mg/5 mL Solution 4 mg IV Q6M Rx Instructions: administer over at least 15 mins triamcinolone acetonide 0.1 % cream 1 applic topical DAILY Discontinued ibuprofen 600 mg Tablet 600 mg PO TID Patient Comments: not on home medication list provided 11/26/18 Follow up/Referrals: Nigel Hughes MD [Primary Care Provider] - Paddy Huff MD [Physician] - 07/12/23 2:00 pm (Follow up w/ Laron Ayala PA-C, at [facility] in [place].) Diet/Activity/Treatments Diet: Diet as Tolerated Activity: No deep bending or twisting at the waist. No lifting more than 10 pounds Cold/Heat Therapy: Heating pad to low back as needed for pain. Skin/Wound/Dressing Care Report to your healthcare provider any signs of infection, such as:: chills, fever, night sweats, unusual drainage and unusual redness Dressing: May shower. Keep dressing as dry as possible. If dressing becomes wet or dirty, remove and replace with clean, dry gauze. Special Rehabilitation Services Reason for rehabilitation: Post-operative therapy Rehab type: Physical therapy and Occupational therapy Visit Report/Discharge Packet Instructions: DI for Transforaminal Lumbar Interbody Fusion Stand Alone Forms: Patient Portal/API, Stroke Signs & Symptoms, Surgery Discharge Discharge Data Primary Care Provider: Nigel Hughes Quality VTE Deep Vein Thrombosis/Pulmonary Embolism Present on Admission: No
--- NOTE | 2023-07-01 09:47 | PT.IPTN ---
Current Diagnoses Spondylolisthesis, lumbosacral region (06/26/23) Spinal stenosis, lumbar region without neurogenic claudication (06/26/23) Arthrodesis status (06/26/23) Surgery Performed Operation Date: 06/26/23 10:15 Actual Procedures p L4-5 lumbar HWR, exploration of fusion, repeat laminectomy, L5-S1 TLIF -Rose Huff MD Physical Therapy Treatment Note M2 PT-IP Current Condition Start: 06/27/23 10:54 Freq: NEEDED Status: Active Protocol: Document 06/27/23 10:39 DLM (Rec: 06/27/23 11:17 DLM [id number]) Physical Therapy Current Condition Current Condition Evaluation Date 06/27/23 Treatment Diagnosis TLIF L5-S1, L4-5 hardware removal w/repeat lami Onset Date 06/26/23 M3 PT-IP Subjective Start: 06/27/23 10:54 Freq: NEEDED Status: Active Protocol: Document 07/01/23 10:24 ZF (Rec: 07/01/23 10:33 ZF [id number]) Subjective Physical Therapy Visit Type Type Treatment Note Visit Start Time 09:47 Visit Stop Time 10:15 Number of MAPPING SUPERVISOR Visits 1 Physical Therapy Visit Comments Patient Comments Pt agreeable to therapy. Therapy Pain Assessment Pain When Pain Assessed During Mobility Pain Present Pain Present Pain Reported Location Bilateral Back Intensity 5 Description Aching,Tender,With Movement Pain Behaviors Facial Grimacing,Guarding, Wincing Pain Management Techniques Modification of Treatment,Re- positioning,Timing of Activity with Medications M4 PT-IP Mobility and Gait Start: 06/27/23 10:54 Freq: NEEDED Status: Active Protocol: Document 07/01/23 10:24 ZF (Rec: 07/01/23 10:33 [id number]) PT-Bed Mobility Assessment Rolling Type of Rolling Roll to Right,Roll to Left Level of Assist Minimal Assistance Supine to Sit Supine to Sit Maximum Assistance,Head of Bed Elevated,Bedrails Scooting Scooting to Edge of Bed Moderate Assistance PT-Transfer Assessment Sit to and From Stand Sit to and from Stand Minimal Assistance,Use of Upper Extremities Equipment Transfer Assistive Device Gait Belt,Front Wheeled Walker Transfers Transfer Destination Chair Transfer Technique Stand Step Pivot Transfer Ability Level of Assist Minimal Assistance Comments Mobility Comments Pt agreeable to getting up into recliner. Supine>Sitting EOB requires extended time for pt to scoot LEs, MaxA for pushing up into sitting and for scooting to EOB. STS from EOB w/2ww, Haroldo. Stand Step transfer to recliner requries Haroldo. Pt moves slowly with reduced step length, WBOS. Vitals monitored in sittin/78mmHg, 95%O2sat, 90BPM. Pt declines gait training and further therapy due to fatigue . Stair Climbing Assessment Comments Stair Climbing Comments ramp at home PT-Balance Assessment Sitting Balance and Reactions Static Sitting Balance Ability Good Dynamic Sitting Balance Ability Fair Standing Balance and Reactions Static Standing Balance Ability Fair Dynamic Standing Balance Ability Fair Device Used fww M5 PT-IP Objective Assessments Start: 06/27/23 10:54 Freq: NEEDED Status: Active Protocol: Document 06/27/23 10:39 DLM (Rec: 06/27/23 11:17 DLM [id number]) Orientation Orientation/Cognition Level of Alertness Alert Orientation Name,Age,Birthday,Month,Date, Year,Day of Week,Place, Situation Language Function Ability Hard of Hearing Safety Awareness Decreased Safety Awareness Memory Description No Deficits Noted Comments she has hearing aid in place Gross Range of Motion Upper Extremity ROM Assessment Within Functional Limits Lower Extremity ROM Assessment Within Functional Limits Strength Upper Extremity Strength Assessment Right Impaired Shoulder hx rotator cuff injury with intermittent pain and functional weakness Lower Extremity Strength Assessment Right Impaired Hip 4/5 Knee 4/5 Ankle 5/5 Coordination Assessment Gross Coordination Gross Coordination WNL Assessment Coordination Comments mild decrease in speed of movements Sensation Assessment Sensation Gross Sensation Right LE Impaired,Left LE Impaired Light Touch Intact Sensation Description Numbness Comments Sensation Comments she reports right LE is worse than left, has a hx of numbness, she does not report it is any worse after surgery Muscle Tone Muscle Tone WNL Yes M6 PT-IP Treatment Start: 06/27/23 10:54 Freq: NEEDED Status: Active Protocol: Document 07/01/23 10:24 ZF (Rec: 07/01/23 10:33 [email or web address] [id number]) Physical Therapy Treatment Exercises Exercises Ankle Pumps Education Education Provided Precautions,Safety M7 PT-IP Assessment and Plan Start: 06/27/23 10:54 Freq: NEEDED Status: Active Protocol: Document 07/01/23 10:24 ZF (Rec: 07/01/23 10:33 CANDIDO [id number]) PT Summary Assessment and Plan Potential Rehabilitation Potential Fair Summary Impairments Pain,ROM,Strength,Balance, Sensation,Bed Mobility, Transfers,Gait,Activity Tolerance Progress Towards Goals Slow Progress due to Activity Tolerance Assessment Summary Pt dems difficulty w/bed mobility and scooting to EOB. STS and SPT requires Haroldo w/ 2ww. Per patient she is DC to [facility] today. Goals Bed Mobility Goal Minimal Assistance Transfer Goal Standby Assistance,Front Wheeled Walker Gait Goal Standby Assistance,Front Wheel Walker Gait Distance 100 feet Days to Meet Goals 3 Frequency of Treatment Frequency Of Treatment Twice a Day Treatment Plan Physical Therapy Treatment Plan Bed Mobility Training,Transfer Training,Gait Training, Therapeutic Exercise,Balance Retraining,Post Op Education, Discharge Planning,Hot or Cold Pack,Neuromuscular Re-ed Precautions Lumbar Precautions Log Roll,No Twisting,Limit Bending,Lifting Restriction of 10 lbs,Gait Belt above Incisional Area Recommendations To Nursing Amount of Assist Needed 2 Person Assist Discharge Recommendations PT Discharge Recommendations Home vs SNF Transportation Needs at Discharge Wheelchair/Cabulance
--- NOTE | 2023-07-01 10:15 | OT.IPNOTE ---
Attempted to see pt for OT services. Pt was just finishing up with P.T. and states fatigued. Will hold and continue to follow. Of note, pt is planned for discharge to SNF at 1300 today.
--- NOTE | 2023-07-01 10:32 | CM.DPC ---
DCP Discharge SNF Per Ortho PA, pt medically stable to discharge to SNF today and no identified barriers to discharge. CHEYANNE called [facility] admissions and confirmed they can still accept pt today and their w/c van is available for transport at 1300. Pt will be in a semi private room at admission and her roommate is to discharge tomorrow and therefore pt will have a private room at that time. CHEYANNE faxed PAS[facility], signed med list, script, MD orders and discharge summary to [facility] to review. Met bedside with pt and explained role and she confirms she remains agreeable with discharge to [facility] today and plans to update her and SW updated on room she will admit to today at the facility. CHEYANNE updated RN, TRADEMARK AFFIXER, Underwriting Consultant and provided number to call RN report. Plan: Patient to discharge to [facility] today via facility van at 1300 before safe return home with spouse. CARON Garrido
[2023-07-01] MEDS: OXYCODONE IR 5 MG TABLET PO (12:41)
--- NOTE | 2023-07-03 03:01 | PC.NURSE ---
Late entry for 06/29/23 @ 20:40. Oxycodone IR 5mg administered to patient per APR.
== END 2023-07-01 13:00 | DRG 454 ==
PROVIDERS: Admitting Provider Orthopaedic Surgery Orthopaedic Surgery of the Spine; PCP Family Medicine; Referring Provider Orthopaedic Surgery Orthopaedic Surgery of the Spine; Visit Provider Orthopaedic Surgery Orthopaedic Surgery of the Spine
PROC: 0SG30AJ Fusion of Lumbosacral Joint with Interbody Fusion Device, Posterior Approach, Anterior Column, Open Approach (ICD-10-PCS; principal; 2023-06-26 10:15)
DX: M48.061 Spinal stenosis, lumbar region without neurogenic claudication (principal); Z68.42 Body mass index [BMI] 45.0-49.9, adult; M43.17 Spondylolisthesis, lumbosacral region; E66.01 Morbid (severe) obesity due to excess calories; M48.07 Spinal stenosis, lumbosacral region; M54.16 Radiculopathy, lumbar region; M96.1 Postlaminectomy syndrome, not elsewhere classified; R32 Unspecified urinary incontinence; G89.18 Other acute postprocedural pain; Z74.09 Other reduced mobility; I10 Essential (primary) hypertension; E03.9 Hypothyroidism, unspecified; G47.33 Obstructive sleep apnea (adult) (pediatric); C50.912 Malignant neoplasm of unspecified site of left female breast; M79.7 Fibromyalgia; Z98.1 Arthrodesis status
CPT/HCPCS: 36415; 72100; 76000; 85014; 85018; 93970; 97116; 97162; 97165; 97530; C1713; C9290; J0171; J0330; J0690; J1100; J1170; J2250; J2405; J2704; J3010